=== PATIENT | female | born 1935 | race African-American/Black ===

== ENCOUNTER 2017-07-29 09:07 | Inpatient (IN) | payer MEDICARE ==
[2017-07-29] VITALS (17 sets, daily range): BP systolic 139–190; BP diastolic 82–113; PULSE 92–165; RESP 16–20; TEMP 97.8–99.2; O2SAT 95–98
[~2017-07-29] VITALS: Ht 160 cm; Wt 76.2 kg
[~2017-07-29 09:07] MED LIST: BUME1TAB PO; CLON.1 PO; CLON.1T TOP; ENAL20TA81 PO; FENO50TA PO; LABE100T2 PO; LEVO.05 PO; OMEP20CA5 PO; SIMV20 PO; TAB-TAB PO
[2017-07-29] MEDS ORDERED: ENAL20TA PO (09:28)
[2017-07-29] MEDS ORDERED: LABE100T2 PO (09:28)
[2017-07-29] MEDS ORDERED: LEVO75TA3 PO (09:28)
[2017-07-29] MEDS ORDERED: FISHCAP4 PO (09:28)
[2017-07-29] MEDS ORDERED: PRAV40TA2 PO (09:28)
[2017-07-29] MEDS ORDERED: GEMF600T PO (09:28)
[2017-07-29] MEDS ORDERED: BUME1TAB PO (09:28)
[2017-07-29] MEDS ORDERED: DILTIAZEM INJ 125 MG in SODIUM CHLORIDE 0.9% INJ 100 ML IV PRN (09:45)
[2017-07-29] MEDS ORDERED: DILTIAZEM HCL 25 MG/5 ML VIAL IV PUSH ONE (09:45)
[2017-07-29] MEDS ORDERED: SODIUM CHLOR 0.9% 1000 ML INJ 1,000 ML IV SCH (09:45)
--- NOTE | 2017-07-29 09:50 | PD ---
HPI Chief Complaint: Cardiac Complaint Time Seen by Provider: 09:33 Travel History International Travel<30 days: No Contact w/Intl Traveler<30days: No Traveled to known affect area: No History of Present Illness HPI 85-year-old female complains of lower extremity weakness. Patient states that symptoms started this morning. Patient has history of chronic bilateral hip pain for the past 2 years and is not new. Patient states that she started having low extremity weakness upon waking up this morning. Patient states that she could not move her legs at all. Patient denies any sensation. Patient denies any bladder or bowel incontinence. Patient has history of hypertension, hyperlipidemia, hypothyroidism. Patient denies any cardiac disease. Patient denies any history of atrial fibrillation or irregular heartbeat. Patient denies any headache. Patient denies any visual change. Patient denies any neck pain. Patient denies any chest pain or shortness of breath. Patient denies abdominal pain. Patient denies any previous history of weakness or numbness of extremity. PFSH Past Medical History Cardiovascular Problems: Yes High Cholesterol: Yes Congestive Heart Failure: Yes Hypertension: Yes Thyroid Disease: Yes (HYPOTHYROID) ?: Not Menopausal: Yes Past Surgical History Surgical History: No Previous Surgery Social History Alcohol Use: No Tobacco Use: No Substance Use: No Allergies-Medications (Allergen,Severity, Reaction): Coded Allergies: No Known Allergies (Verified Allergy, Unknown, 07/29/17) Reported Meds & Prescriptions Reported Meds & Active Scripts Active Reported Enalapril (Enalapril Maleate) 20 Mg Tab 20 Mg PO DAILY Bumetanide 1 Mg Tab 1 Mg PO DAILY Pravastatin 40 Mg Tab 40 Mg PO DAILY Fish Oil + D3 (Fish Oil-Cholecalciferol) 1,200-1,000 Mg-Unit Cap 1 Cap PO DAILY Gemfibrozil 600 Mg Tab 600 Mg PO BIDAC Take 30 minutes prior to breakfast and dinner. Levothyroxine (Levothyroxine Sodium) 75 Mcg Tab 75 Mcg PO DAILY Labetalol (Labetalol HCl) 100 Mg Tab 100 Mg PO BID Review of Systems General / Constitutional: No: Fever Eyes: No: Visual changes HENT: No: Headaches Cardiovascular: No: Chest Pain or Discomfort Respiratory: No: Shortness of Breath Gastrointestinal: No: Abdominal Pain Genitourinary: No: Dysuria Musculoskeletal: No: Pain Skin: No Rash Neurologic: Positive: Weakness Psychiatric: No: Depression Endocrine: No: Polydipsia Hematologic/Lymphatic: No: Easy Bruising Physical Exam Narrative GENERAL: Well-nourished, well-developed patient. SKIN: Focused skin assessment warm/dry. HEAD: Normocephalic. EYES: No scleral icterus. No injection or drainage. NECK: Supple, trachea midline. No JVD or lymphadenopathy. CARDIOVASCULAR: Regular rate and rhythm without murmurs, gallops, or rubs. RESPIRATORY: Breath sounds equal bilaterally. No accessory muscle use. GASTROINTESTINAL: Abdomen soft, non-tender, nondistended. MUSCULOSKELETAL: No cyanosis, or edema. BACK: Nontender without obvious deformity. No CVA tenderness. Neurologic exam: Patient's awake and alert oriented 3. Patient unable to move bilateral lower extremity. Patient can move the toes. Sensory function intact. Good capillary refill. Lower extremity bilaterally is warm. Data Data Last Documented VS Vital Signs Date Time Temp Pulse Resp B/P (MAP) Pulse Ox O2 Delivery O2 Flow Rate FiO2 07/29/17 14:22 110 17 180/89 (119) 96 Room Air 07/29/17 12:28 97.8 Orders Orders Electrocardiogram (07/29/17 ) Complete Blood Count With Diff (07/29/17 09:39) Comprehensive Metabolic Panel (07/29/17 09:39) Creatine Kinase (Cpk) (07/29/17 09:39) Troponin I (07/29/17 09:39) Prothrombin Time / Inr (Pt) (07/29/17 09:39) Act Partial Throm Time (Ptt) (07/29/17 09:39) Urinalysis - C+S If Indicated (07/29/17 09:39) Thyroid Stimulating Hormone (07/29/17 09:39) Chest, Single Ap (07/29/17 09:39) Iv Access Insert/Monitor (07/29/17 09:39) Ecg Monitoring (07/29/17 09:39) Oximetry (07/29/17 09:39) Diltiazem Inj (Cardizem Inj) (07/29/17 09:45) Diltiazem Inj (Cardizem Inj) (07/29/17 09:45) Sodium Chlor 0.9% 1000 Ml Inj (Ns 1000 M (07/29/17 09:45) Mri Brain W/O Contrast (07/29/17 09:42) Mri C Spine W/O Contrast (07/29/17 09:42) Mri T Spine W/O Contrast (07/29/17 09:42) Mri L Spine W/O Contrast (07/29/17 09:42) Labs Laboratory Tests Test 07/29/17 09:48 White Blood Count 11.4 TH/MM3 Red Blood Count 3.62 MIL/MM3 Hemoglobin 11.2 GM/DL Hematocrit 33.4 % Mean Corpuscular Volume 92.1 FL Mean Corpuscular Hemoglobin 31.0 PG Mean Corpuscular Hemoglobin Concent 33.7 % Red Cell Distribution Width 14.8 % Platelet Count 208 TH/MM3 Mean Platelet Volume 9.6 FL Neutrophils (%) (Auto) 80.6 % Lymphocytes (%) (Auto) 5.8 % Monocytes (%) (Auto) 13.2 % Eosinophils (%) (Auto) 0.1 % Basophils (%) (Auto) 0.3 % Neutrophils # (Auto) 9.1 TH/MM3 Lymphocytes # (Auto) 0.7 TH/MM3 Monocytes # (Auto) 1.5 TH/MM3 Eosinophils # (Auto) 0.0 TH/MM3 Basophils # (Auto) 0.0 TH/MM3 CBC Comment DIFF FINAL Differential Comment Prothrombin Time 10.5 SEC Prothromb Time International Ratio 1.0 RATIO Activated Partial Thromboplast Time 35.1 SEC Blood Urea Nitrogen 23 MG/DL Creatinine 0.97 MG/DL Random Glucose 112 MG/DL Total Protein 7.7 GM/DL Albumin 2.8 GM/DL Calcium Level 10.4 MG/DL Alkaline Phosphatase 81 U/L Aspartate Amino Transf (AST/SGOT) 17 U/L Alanine Aminotransferase (ALT/SGPT) 10 U/L Total Bilirubin 0.5 MG/DL Sodium Level 136 MEQ/L Potassium Level 3.6 MEQ/L Chloride Level 98 MEQ/L Carbon Dioxide Level 28.4 MEQ/L Anion Gap 10 MEQ/L Estimat Glomerular Filtration Rate 66 ML/MIN Total Creatine Kinase 101 U/L Troponin I 0.02 NG/ML Thyroid Stimulating Hormone 3rd Gen 2.070 uIU/ML MDM Medical Decision Making Medical Screen Exam Complete: Yes Emergency Medical Condition: Yes Interpretation(s) Last Impressions Thoracic Spine MRI 07/29/17941 Signed Impressions: Service Date/Time: July 10:29 - CONCLUSION: 1. No acute abnormality. 2. Mild diffuse degenerative disc disease without central canal compromise. Tyson Reina Jr., MD Lumbar Spine MRI 07/29/17941 Signed Impressions: Service Date/Time: July 10:29 - CONCLUSION: Multilevel degenerative changes as detailed above. Most pronounced at L2-L3 with significant central canal stenosis. There is a transitional segment at L5. There is a 7.2 x 5.3 cm soft tissue structure within the pelvis partially seen on the final images of the exam. I'm unsure if this relates to the fundus of the uterus or perhaps a soft tissue mass. Consider pelvic sonography to evaluate. Tyson Reina Jr., MD Cervical Spine MRI 07/29/17941 Signed Impressions: Service Date/Time: July 10:29 - CONCLUSION: Multilevel degenerative changes with areas of impression upon the cord no signal change within the cord to suggest edema or myelomalacia. Each level detailed in the above discussion. Tyson Reina Jr., MD Brain MRI 07/29/17941 Signed Impressions: Service Date/Time: July 10:29 - CONCLUSION: 1. No acute intracranial abnormality. 2. Extensive chronic small vessel ischemic change. Tyson Reina Jr., MD Chest X-Ray 07/29/17938 Signed Impressions: Service Date/Time: July 10:05 - CONCLUSION: No acute disease. Varghese Mejia MD 1526 PM. CBC WBC 11.4. Hemoglobin 11.2 hematocrit 33.4. 80 neutrophil. BUN 23. Creatinine 0.97. GFR 66. Calcium 10.4. Cardiac enzymes are normal. Differential Diagnosis Differential diagnosis including new onset atrial fibrillation RVR, neuropathy, spinal cord lesion, CVA. Narrative Course 85-year-old female with bilateral extremity weakness. Patient also has new- onset atrial fibrillation with RVR. Cardizem bolus and drip started. IV fluid with normal saline solution 100 cc an hour. Diagnosis Primary Impression: Atrial fibrillation with RVR Additional Impression: Lower extremity weakness Qualified Codes: R29.898 - Other symptoms and signs involving the musculoskeletal system Admitting Information Admitting Physician Requests: Admit Mane Lawrence MD Jul 29, 2017 09:50
[2017-07-29 10:02] LABS: AUTOMATED NEUTROPHIL # 9.1 TH/MM3 (1.8-7.7); BASOPHIL % 0.3 % (0.0-2.0); EOSINOPHIL % 0.1 % (0.0-4.0); HEMATOCRIT 33.4 % (35.0-46.0); HEMOGLOBIN 11.2 GM/DL (11.6-15.3); LYMPH % 5.8 % (9.0-44.0); LYMPHOCYTE # 0.7 TH/MM3 (1.0-4.8); MEAN CELL VOLUME 92.1 FL (80.0-100.0); MEAN CORPUSCULAR HGB CONC 33.7 % (32.0-36.0); MEAN PLATELET VOLUME 9.6 FL (7.0-11.0); MONO % 13.2 % (0.0-8.0); MONOCYTE # 1.5 TH/MM3 (0-0.9); NEUT % 80.6 % (16.0-70.0); PLATELET COUNT 208 TH/MM3 (150-450); RED BLOOD COUNT 3.62 MIL/MM3 (4.00-5.30); RED CELL DISTRIBUTION WIDTH 14.8 % (11.6-17.2); WHITE BLOOD COUNT 11.4 TH/MM3 (4.0-11.0)
[2017-07-29 10:11] LABS: PROTHROMBIN TIME - PATIENT 10.5 SEC (9.8-11.6)
[2017-07-29 10:18] LABS: ALBUMIN 2.8 GM/DL (3.4-5.0); AST (GOT) 17 U/L (15-37); BICARBONATE 28.4 MEQ/L (21.0-32.0); BLOOD UREA NITROGEN 23 MG/DL (7-18); CALCIUM 10.4 MG/DL (8.5-10.1); CHLORIDE 98 MEQ/L (98-107); CREATININE 0.97 MG/DL (0.50-1.00); GLOMERULAR FILTRATION RATE 66 ML/MIN (>89); GLUCOSE,RANDOM 112 MG/DL (74-106); SODIUM (NA) 136 MEQ/L (136-145)
[2017-07-29 10:19] LABS: ALT (GPT) 10 U/L (10-53)
--- NOTE | 2017-07-29 10:20 | RADRPT ---
EXAM DATE/TIME: 07/29/2017 10:05 [facility] COMPARISON: CHEST SINGLE AP, February 27, 2012, 20:33. INDICATIONS : High blood pressure, bilateral leg and feet weakness. MEDICAL HISTORY : Hypertension. SURGICAL HISTORY : None. ENCOUNTER: Initial ACUITY: 1 day PAIN SCORE: 4/10 LOCATION: Bilateral chest FINDINGS: A single view of the chest demonstrates the lungs to be symmetrically aerated without evidence of mas s, infiltrate or effusion. The cardiomediastinal contours are unremarkable. Osseous structures are intact. CONCLUSION: No acute disease. Varghese Mejia MD on July 29, 2017 at 10:17 Board Certified Radiologist. This report was verified electronically.
[2017-07-29 10:28] LABS: ALKALINE PHOSPHATASE 81 U/L (45-117); TOTAL BILIRUBIN ADULT 0.5 MG/DL (0.2-1.0); TOTAL PROTEIN 7.7 GM/DL (6.4-8.2); TROPONIN I 0.02 NG/ML (0.02-0.05)
--- NOTE | 2017-07-29 11:23 | RADRPT ---
EXAM DATE/TIME: 07/29/2017 10:29 [facility] COMPARISON: No previous studies available for comparison. INDICATIONS : Bilateral leg weakness. MEDICAL HISTORY : Hypertension. SURGICAL HISTORY : None. ENCOUNTER: Initial ACUITY: 1 day PAIN SCORE: 0/10 LOCATION: mid back. TECHNIQUE: Multiplanar multisequence MRI of the thoracic spine was performed. FINDINGS: VERTEBRA: Normal vertebral body height. Homogeneous marrow signal. ALIGNMENT: There is a curvature with concavity towards the patient's left centered at the lower thoracic levels. This may simply be positional in nature. CORD: Normal position and configuration. There is diffuse disc space narrowing throughout the thoracic spine with mild anterior osteophyte pro duction. T1-T2: Normal. T2-T3: The thecal sac has a normal diameter. No evidence of disc bulge or protrusion. T3-T4: The thecal sac has a normal diameter. No evidence of disc bulge or protrusion. T4-T5: The thecal sac has a normal diameter. No evidence of disc bulge or protrusion. T5-T6: The thecal sac has a normal diameter. No evidence of disc bulge or protrusion. T6-T7: The thecal sac has a normal diameter. No evidence of disc bulge or protrusion. T7-T8: The thecal sac has a normal diameter. No evidence of disc bulge or protrusion. T8-T9: The thecal sac has a normal diameter. No evidence of disc bulge or protrusion. T9-T10: The thecal sac has a normal diameter. No evidence of disc bulge or protrusion. T10-T11: The thecal sac has a normal diameter. No evidence of disc bulge or protrusion. T11-T12: The thecal sac has a normal diameter. No evidence of disc bulge or protrusion. T12-L1: The thecal sac has a normal diameter. No evidence of disc bulge or protrusion. CONCLUSION: 1. No acute abnormality. 2. Mild diffuse degenerative disc disease without central canal compromise. Tyson Reina Jr., MD on July 29, 2017 at 11:17 Board Certified Radiologist. This report was verified electronically.
--- NOTE | 2017-07-29 11:29 | RADRPT ---
EXAM DATE/TIME: 07/29/2017 10:29 [facility] COMPARISON: No previous studies available for comparison. INDICATIONS : Bilateral leg weakness. MEDICAL HISTORY : Hypertension. SURGICAL HISTORY : None. ENCOUNTER: Initial ACUITY: 1 day PAIN SCORE: 0/10 LOCATION: neck. TECHNIQUE: Multiplanar, multisequence MRI examination of the cervical spine was performed. FINDINGS: VERTEBRAE: Normal vertebral body height. Homogeneous marrow signal. ALIGNMENT: Is a mild grade 1 anterolisthesis of C4 on C5. There is a mild retrolisthesis of C5 on C6. CORD: Normal configuration and signal. POST FOSSA: The cerebellar tonsils are normal in position. C2-C3: There is disc desiccation with mild disc space narrowing. A mild broad-based bulge. No abutment of th e cord or central canal stenosis. Central canal and neural foramina are patent bilaterally. C3-C4: There is significant disc space narrowing and broad-based disc bulge flattens the ventral portion of the cord. The anterior to posterior dimension of the central canal in the midline is 8 mm. Bony uncov ertebral hypertrophy generate significant bilateral neural foraminal narrowing. C4-C5: There is moderate disc space narrowing with disc desiccation and moderate broad-based disc bulge that mildly flattens the ventral portion of the cord. Central canal measures 10 mm in the midline. Bony u ncovertebral hypertrophy generate significant stenosis of the right neural foramen with minimal narro wing of the left neural foramen. C5-C6: There is considerable disc space narrowing with disc desiccation and minimal broad based disc bulge t hat mildly flattens the ventral portion of the cord. Central canal measures 9 mm in the midline. Bony uncovertebral hypertrophy generate significant bilateral neural foraminal narrowing. C6-C7: There is significant disc space narrowing with disc desiccation and broad-based disc bulge that ceci ens the ventral portion of the cord. Anterior to posterior dimension of the central canal in the midl ine is 9 mm. Bony uncovertebral hypertrophy generate moderate bilateral neural foraminal narrowing. C7-T1: The thecal sac has a normal configuration. There is no evidence of disc herniation or spinal canal s tenosis. The neural foramina are patent bilaterally. CONCLUSION: Multilevel degenerative changes with areas of impression upon the cord no signal change within the co rd to suggest edema or myelomalacia. Each level detailed in the above discussion. Tyson Reina Jr., MD on July 29, 2017 at 11:21 Board Certified Radiologist. This report was verified electronically.
--- NOTE | 2017-07-29 11:42 | RADRPT ---
EXAM DATE/TIME: 07/29/2017 10:29 [facility] COMPARISON: No previous studies available for comparison. INDICATIONS : Bilateral leg weakness. MEDICAL HISTORY : Hypertension. SURGICAL HISTORY : None. ENCOUNTER: Initial ACUITY: 1 day PAIN SCORE: 0/10 LOCATION: low back. TECHNIQUE: Multiplanar multisequence MRI of the lumbar spine was performed without contrast. FINDINGS: The most caudal appearing lumbar vertebra is numbered as L5. VERTEBRAE: Homogeneous signal. Normal alignment. CONUS: Normal level and configuration. There is a soft tissue structure that is partially visualized within the pelvis on the final images o f this study. This measures 7.2 x 5.3 cm within its visualized extent. I am unsure if this relates to the dome of the fundus of uterus. T12-L1: The thecal sac has a normal diameter. No evidence of disc bulge or protrusion. The neural foramina are patent bilaterally. L1-L2: The thecal sac has a normal diameter. No evidence of disc bulge or protrusion. The neural foramina are patent bilaterally. Mild bony hypertrophy of the facets. L2-L3: There is disc desiccation with mild disc space narrowing and moderate broad-based disc bulge. This in combination with pronounced ligamentum flavum hypertrophy and moderate bony hypertrophy of the facet s causes significant central canal stenosis. The anterior to posterior dimension of the central canal in the midline is 4 mm. Total effacement of the lateral recesses bilaterally. Narrowing of the neura l foramina without overt impingement of either L2 nerve root. L3-L4: There is significant disc space narrowing with disc desiccation and mild broad-based disc bulge. Mode rate ligamentum flavum hypertrophy of the facet joints. Narrowing of the lateral recesses bilaterally without displacement of either L4 nerve roots. Central canal is patent but the intrathecal space jesus suring 11 mm in the midline. Neural foramina are patent bilaterally. L4-L5: There is disc desiccation with preservation of the disc space height. A moderate broad-based bulge. M oderate ligamentum flavum hypertrophy of the facets. This combination generates significant narrowing of the lateral recesses bilaterally as well as a triangle are shaped and the central canal. Central canal measures 8 mm in anterior to posterior dimension within the midline. There is narrowing of the neural foramina bilaterally without overt impingement. L5-S1: The L5 level is a transitional segment and is approximating that of an S1 segment. No disc bulge or p rotrusion. Central canal and neural foramen are patent. CONCLUSION: Multilevel degenerative changes as detailed above. Most pronounced at L2-L3 with significant central canal stenosis. There is a transitional segment at L5. There is a 7.2 x 5.3 cm soft tissue structure within the pelvis partially seen on the final images of the exam. I'm unsure if this relates to the f undus of the uterus or perhaps a soft tissue mass. Consider pelvic sonography to evaluate. Tyson Reina Jr., MD on July 29, 2017 at 11:26 Board Certified Radiologist. This report was verified electronically.
--- NOTE | 2017-07-29 11:58 | RADRPT ---
EXAM DATE/TIME: 07/29/2017 10:29 [facility] COMPARISON: No previous studies available for comparison. INDICATIONS : Bilateral leg weakness. MEDICAL HISTORY : Hypertension. SURGICAL HISTORY : None. ENCOUNTER: Initial ACUITY: 1 day PAIN SCORE: 0/10 LOCATION: head. TECHNIQUE: Multiplanar, multisequence MRI of the brain was performed without contrast. FINDINGS: CEREBRUM: The ventricles are normal for age. No evidence of midline shift, mass lesion, hemorrhage or acute in farction. No extraaxial fluid collections are seen. The pituitary gland and suprasellar cistern are normal in configuration. WHITE MATTER: Extensive high flair signal involving the periventricular and subcortical white matter of both cerebr al hemispheres. No subcortical U fiber involvement or callosal involvement appreciated. POSTERIOR FOSSA: The cerebellum and brainstem are intact. The 4th ventricle is midline. The cerebellopontine angle is unremarkable. The cerebellar tonsils are normal in position. DIFFUSION IMAGING: No focal areas of restricted diffusion are seen. No evidence of acute infarction. EXTRACRANIAL: The visualized portions of the orbits and paranasal sinuses are unremarkable. CONCLUSION: 1. No acute intracranial abnormality. 2. Extensive chronic small vessel ischemic change. Tyson Reina Jr., MD on July 29, 2017 at 11:53 Board Certified Radiologist. This report was verified electronically.
--- NOTE | 2017-07-29 13:51 | EKG ---
Date Performed: 07/29/2017 Time Performed: 09:22:01 PTAGE: 85 years EKG: PROBABLE atrial flutter WITH RAPID VENTRICULAR RESPONSE NONSPECIFIC ST & T-WAVE ABNORMALIT Y ABNORMAL ECG Compared to prior electrocardiogram, atrial flutter is new DOCTOR: Adam Mojica Interpretating Date/Time 07/29/2017 13:50:09
[2017-07-29] MEDS ORDERED: SODIUM CHLOR 0.9% 1000 ML INJ 1,000 ML IV ONE (17:15)
--- NOTE | 2017-07-29 17:20 | HHI.HP ---
[facility] Primary Care Physician David Clark MD Admission Diagnosis new-onset atrial fibrillation with RVR. Lower extremity weakness. Diagnoses: (1) Lower extremity weakness Diagnosis: Principal (2) Atrial fibrillation with RVR Diagnosis: Principal Chief Complaint: ' I wasn't able to move my legs today'. Travel History International Travel<30 Days: No Contact w/Intl Traveler <30 Da: No Traveled to Known Affected Are: No History of Present Illness patient is a 85 y/o female with history of hypertension, dyslipidemia, hypothyroidism who presented to ER with lower extremity weakness. she says that she normally walks with a walker. but this morning she wasn't able to move her legs. she denies any headache, slurred speech or vision changes. she denies any urine or stool incontinence. she denies any chest pain, sob or dizziness. she was found to be in a-fib with RVR. she doesn't report any history of atrial fibrillation. Review of Systems Constitutional: DENIES: Fever, Weight loss, Chills, Night Sweats Eyes: DENIES: Blurred vision, Diplopia, Vision loss, Double Vision Ears, nose, mouth, throat: DENIES: Tinnitus, Vertigo, Throat pain, Epistaxis Respiratory: DENIES: Apneas, Cough, Snoring, Wheezing, Hemoptysis, Sputum production, Shortness of breath Cardiovascular: DENIES: Chest pain, Palpitations, Syncope, Dyspnea on Exertion , PND, Lower Extremity Edema, Orthopnea, Claudication Gastrointestinal: DENIES: Abdominal pain, Black stools, Bloody stools, Constipation, Diarrhea, Nausea, Vomiting, Difficulty Swallowing, Anorexia Genitourinary: DENIES: Urinary frequency, Urgency, Hematuria, Dysuria Musculoskeletal: DENIES: Joint pain, Muscle aches, Stiffness, Joint Swelling Integumentary: DENIES: Rash Neurologic: COMPLAINS OF: Abnormal gait, DENIES: Headache, Localized weakness, Paresthesias, Seizures, Speech Problems, Tremor, Poor Balance Psychiatric: DENIES: Anxiety, Confusion, Mood changes, Depression, Hallucinations, Agitation, Suicidal Ideation, Homicidal Ideation, Delusions Past Family Social History Past Medical History hypertension/dyslipidemia/hypothyroidism Past Surgical History none reported. Reported Medications Enalapril (Enalapril Maleate) 20 Mg Tab 20 Mg PO DAILY Bumetanide 1 Mg Tab 1 Mg PO DAILY Pravastatin 40 Mg Tab 40 Mg PO DAILY Fish Oil + D3 (Fish Oil-Cholecalciferol) 1,200-1,000 Mg-Unit Cap 1 Cap PO DAILY Gemfibrozil 600 Mg Tab 600 Mg PO BIDAC Take 30 minutes prior to breakfast and dinner. Levothyroxine (Levothyroxine Sodium) 75 Mcg Tab 75 Mcg PO DAILY Labetalol (Labetalol HCl) 100 Mg Tab 100 Mg PO BID Allergies: Coded Allergies: No Known Allergies (Verified Allergy, Unknown, 07/29/17) Active Ordered Medications Inpatient Medications Diltiazem HCl (Cardizem Inj) 20 mg BOLUS ONCE IV PUSH Last administered on 07/29at 09:51; Start 07/29/17 at 09:45; Stop 07/29/17 at 09:46; Status DC Diltiazem HCl 125 mg/Sodium Chloride 125 ml @ 5 mls/hr TITRATE PRN IV tachycardia Last administered on 07/29/17at 11:49; Start 07/29/17 at 09:45 Sodium Chloride 1,000 ml @ 100 mls/hr Q10H IV Last administered on 07/29/17at 09 :51; Start 07/29/17 at 09:45 Family History not significant. Social History no smoking or drinking. Physical Exam Vital Signs Vital Signs Date Time Temp Pulse Resp B/P (MAP) Pulse Ox O2 Delivery O2 Flow Rate FiO2 07/29/17 15:55 103 16 176/92 (120) 97 Room Air 07/29/17 14:22 110 17 180/89 (119) 96 Room Air 07/29/17 12:28 97.8 130 20 152/82 (105) 96 Room Air 07/29/17 12:27 130 158/92 07/29/17 12:00 97.8 148 18 171/89 (116) 97 Room Air 07/29/17 11:49 158 173/96 07/29/17 10:22 103 16 178/86 (116) 96 Room Air 07/29/17 09:57 98 Room Air 07/29/17 09:52 155 16 184/113 (136) 96 Room Air 07/29/17 09:17 98.7 165 17 168/107 (127) 97 Physical Exam GENERAL: This is a well-nourished, well-developed patient, in no apparent distress. SKIN: No rashes, ecchymoses or lesions. Cool and dry. HEAD: Atraumatic. Normocephalic. No temporal or scalp tenderness. EYES: Pupils equal round and reactive. Extraocular motions intact. No scleral icterus. No injection or drainage. ENT: Nose without bleeding, purulent drainage or septal hematoma. Throat without erythema, tonsillar hypertrophy or exudate. Uvula midline. Airway patent. NECK: Trachea midline. No JVD or lymphadenopathy. Supple, nontender, no meningeal signs. CARDIOVASCULAR:tachycardic with irregular rhythm RESPIRATORY: Clear to auscultation. Breath sounds equal bilaterally. No wheezes , rales, or rhonchi. GASTROINTESTINAL: Abdomen soft, non-tender, nondistended. No hepato-splenomegaly , or palpable masses. No guarding. MUSCULOSKELETAL: Extremities without clubbing, cyanosis, or edema. No joint tenderness, effusion, or edema noted. No calf tenderness. Negative Homans sign bilaterally. NEUROLOGICAL: Awake and alert. Cranial nerves II through XII intact. lower extremity weakness noted bilaterally. Laboratory Laboratory Tests Test 07/29/17 09:48 White Blood Count 11.4 Red Blood Count 3.62 Hemoglobin 11.2 Hematocrit 33.4 Mean Corpuscular Volume 92.1 Mean Corpuscular Hemoglobin 31.0 Mean Corpuscular Hemoglobin Concent 33.7 Red Cell Distribution Width 14.8 Platelet Count 208 Mean Platelet Volume 9.6 Neutrophils (%) (Auto) 80.6 Lymphocytes (%) (Auto) 5.8 Monocytes (%) (Auto) 13.2 Eosinophils (%) (Auto) 0.1 Basophils (%) (Auto) 0.3 Neutrophils # (Auto) 9.1 Lymphocytes # (Auto) 0.7 Monocytes # (Auto) 1.5 Eosinophils # (Auto) 0.0 Basophils # (Auto) 0.0 CBC Comment DIFF FINAL Differential Comment Prothrombin Time 10.5 Prothromb Time International Ratio 1.0 Activated Partial Thromboplast Time 35.1 Blood Urea Nitrogen 23 Creatinine 0.97 Random Glucose 112 Total Protein 7.7 Albumin 2.8 Calcium Level 10.4 Alkaline Phosphatase 81 Aspartate Amino Transf (AST/SGOT) 17 Alanine Aminotransferase (ALT/SGPT) 10 Total Bilirubin 0.5 Sodium Level 136 Potassium Level 3.6 Chloride Level 98 Carbon Dioxide Level 28.4 Anion Gap 10 Estimat Glomerular Filtration Rate 66 Total Creatine Kinase 101 Troponin I 0.02 Thyroid Stimulating Hormone 3rd Gen 2.070 Result Diagram: 07/29/1794707/29/17947 Imaging Last Impressions Thoracic Spine MRI 07/29/17941 Signed Impressions: Service Date/Time: July 10:29 - CONCLUSION: 1. No acute abnormality. 2. Mild diffuse degenerative disc disease without central canal compromise. Tyson Reina Jr., MD Lumbar Spine MRI 07/29/17941 Signed Impressions: Service Date/Time: July 10:29 - CONCLUSION: Multilevel degenerative changes as detailed above. Most pronounced at L2-L3 with significant central canal stenosis. There is a transitional segment at L5. There is a 7.2 x 5.3 cm soft tissue structure within the pelvis partially seen on the final images of the exam. I'm unsure if this relates to the fundus of the uterus or perhaps a soft tissue mass. Consider pelvic sonography to evaluate. Tyson Reina Jr., MD Cervical Spine MRI 07/29/17941 Signed Impressions: Service Date/Time: July 10:29 - CONCLUSION: Multilevel degenerative changes with areas of impression upon the cord no signal change within the cord to suggest edema or myelomalacia. Each level detailed in the above discussion. Tyson Reina Jr., MD Brain MRI 07/29/17941 Signed Impressions: Service Date/Time: July 10:29 - CONCLUSION: 1. No acute intracranial abnormality. 2. Extensive chronic small vessel ischemic change. Tyson Reina Jr., MD Chest X-Ray 07/29/17938 Signed Impressions: Service Date/Time: July 10:05 - CONCLUSION: No acute disease. Varghese Mejia MD EKG; atrial fibrillation with RVR Caprini VTE Risk Assessment Caprini VTE Risk Assessment: Mod/High Risk (score >= 2) Caprini Risk Assessment Model Point Value = 1 Point Value = 2 Point Value = 3 Point Value = 5 Age 41-60 Minor surgery BMI > 25 kg/m2 Swollen legs Varicose veins or History of unexplained or recurrent spontaneous Oral contraceptives or hormone replacement Sepsis (< 1 month) Serious lung disease, including pneumonia (< 1 month) Abnormal pulmonary function Acute myocardial infarction Congestive heart failure (< 1 month) History of inflammatory bowel disease Medical patient at bed rest Age 61-74 Arthroscopic surgery Major open surgery (> 45 min) Laparoscopic surgery (> 45 min) Malignancy Confined to bed (> 72 hours) Immobilizing plaster cast Central venous access Age >= 75 History of VTE Family history of VTE Factor V Leiden Prothrombin [id number] Lupus anticoagulant Anticardiolipin antibodies Elevated serum homocysteine Heparin-induced thrombocytopenia Other congenital or acquired thrombophilia Stroke (< 1 month) Elective arthroplasty Hip, pelvis, or leg fracture Acute spinal cord injury (< 1 month) Prophylaxis Regimen Total Risk Factor Score Risk Level Prophylaxis Regimen 0-1 Low Early ambulation 2 Moderate Order ONE of the following: *Sequential Compression Device (SCD) *Heparin 5000 units SQ BID 3-4 Higher Order ONE of the following medications: *Heparin 5000 units SQ TID *Enoxaparin/Lovenox 40 mg SQ daily (WT < 150 kg, CrCl > 30 mL/min) *Enoxaparin/Lovenox 30 mg SQ daily (WT < 150 kg, CrCl > 10-29 mL/min) *Enoxaparin/Lovenox 30 mg SQ BID (WT < 150 kg, CrCl > 30 mL/min) AND/OR *Sequential Compression Device (SCD) 5 or more Highest Order ONE of the following medications: *Heparin 5000 units SQ TID (Preferred with Epidurals) *Enoxaparin/Lovenox 40 mg SQ daily (WT < 150 kg, CrCl > 30 mL/min) *Enoxaparin/Lovenox 30 mg SQ daily (WT < 150 kg, CrCl > 10-29 mL/min) *Enoxaparin/Lovenox 30 mg SQ BID (WT < 150 kg, CrCl > 30 mL/min) AND *Sequential Compression Device (SCD) Assessment and Plan Assessment and Plan A/P - lower extremity weakness. MRI of the lumbar spine with degenerative changes. consult neurology and PT. -atrial fibrillation with RVR- new onset started on Cardizme drip; will start on po cardizem and try to wean off the drip- will check echo and consult cardiology. -hypertension; started on cardizem- will hold oral BP meds for now -dyslipidemia/hypothyroidism; resume home meds -pelvic soft tissue mass; pelvic sonography; outpatient f/u. -DVT prophylaxis with subq lovenox Discussed Condition With ER physician, the patient and her daughter at the bedside. Physician Certification 2 Midnight Certification Type: Admission for Inpatient Services Order for Inpatient Services The services are ordered in accordance with Medicare regulations or non- Medicare payer requirements, as applicable. In the case of services not specified as inpatient-only, they are appropriately provided as inpatient services in accordance with the 2-midnight benchmark. Estimated LOS (days): 2 days is the estimated time the patient will need to remain in the hospital, assuming treatment plan goals are met and no additional complications. Post-Hospital Plan: Not yet determined Problem Qualifiers (1) Lower extremity weakness: Qualified Codes: R29.898 - Other symptoms and signs involving the musculoskeletal system Aracelis Lou MD Jul 29, 2017 17:20
[2017-07-29] MEDS ORDERED: AMIODARONE INJ 150 MG in DEXTROSE 5% IN WATER 100ML INJ 97 ML IV ONE ×2 (18:10)
[2017-07-29] MEDS ORDERED: SODIUM CHLORIDE 0.9% FLUSH 10 ML FLUSH IVF PRN (18:15)
[2017-07-29] MEDS: DILTIAZEM HCL 30 MG TAB PO SCH (18:18)
[2017-07-29] MEDS: AMIODARONE INJ 450 MG in SODIUM CHLOR 0.9% (EXCEL) INJ 250 ML IV SCH (20:23)
[2017-07-29] MEDS: APIXABAN 2.5 MG TABLET PO SCH (21:00)
--- NOTE | 2017-07-29 21:55 | MB ---
cc: TATIANA ELLIS MD DATE OF CONSULTATION 07/29/17 INDICATION Atrial fibrillation. HISTORY OF PRESENT ILLNESS An 85-year-old female history of hypertension, dyslipidemia, hypothyroidism who came into the emergency department with generalized weakness, particularly in her lower extremities. She was found in atrial fibrillation with a rapid ventricular rate. We were consulted for further recommendations. PAST MEDICAL HISTORY 1. Hypertension, 2. Dyslipidemia, 3. Hypothyroidism MEDICATIONS Reported medications 1. Enalapril 2. Bumex 3. Pravastatin 4. Fish oil 5. Gemfibrozil 6. Levothyroxine 7. Labetalol ALLERGIES NO KNOWN DRUG ALLERGIES. REVIEW OF SYSTEMS 12-point review or system was performed, negative unless otherwise noted is history of present illness. PHYSICAL EXAMINATION VITAL SIGNS: Temperature 97, heart rate 108, blood pressure 144/95 mmHg. GENERAL: Alert and oriented x3 in no acute distress. HEENT: Pupils reactive to light and accommodation. Extraocular movements are intact. No elevation in jugular venous distension. No thyromegaly or lymphadenopathy. No carotid bruits. LUNGS: Clear to auscultation bilaterally. CARDIOVASCULAR: She has an irregular irregular rhythm without murmurs, rubs or gallops. ABDOMEN: Nontender, nondistended. Good bowel sounds. No hepatosplenomegaly. EXTREMITIES: No clubbing, cyanosis or edema. Good peripheral pulses. NEUROLOGIC: Cranial nerves intact. Motor sensory grossly intact. LABORATORY DATA WBC 11.4, hemoglobin 11.2, platelet count 208, INR is 1. Sodium 136, potassium 3.6, BUN is 23, creatinine 0.97. ASSESSMENT 1. Atrial fibrillation with rapid ventricular rate 2. Hypertension, hyperlipidemia. PLAN The patient had a brief period of mormonism to normal sinus rhythm and then she reverted back to atrial fibrillation. She has no prior history of known heart disease. We will obtain a 2-D echocardiogram. She is currently on rate controlled Cardizem, Cardizem drip. Oral Cardizem was initiated. Given her brief mormonism of sinus rhythm, we will see if we can chemically convert her with Amiodarone to maintain sinus rhythm. Base on her CHADS vasc score of 4, she will need anticoagulation. We will start her an oral anticoagulant. Hopefully, she can be discharged and follow up on an outpatient basis. MD ASHIA Sandoval /6:14 PM /9:32 PM
[2017-07-29] MEDS ORDERED: MORPHINE SULFATE 2 MG/ML INJ IV PUSH ONE (23:00)
[2017-07-30] VITALS (18 sets, daily range): BP systolic 131–184; BP diastolic 75–94; PULSE 74–120; RESP 16–28; TEMP 98.2–99; O2SAT 96–99
[2017-07-30] MEDS: DILTIAZEM HCL 30 MG TAB PO SCH ×2 (00:04→05:28)
[2017-07-30] MEDS ORDERED: cloNIDine HCL 0.1 MG TAB PO ONE (02:00)
[2017-07-30] MEDS: AMIODARONE INJ 450 MG in SODIUM CHLOR 0.9% (EXCEL) INJ 250 ML IV SCH (05:25)
[2017-07-30] MEDS: LEVOTHYROXINE SODIUM 75 MCG TAB PO SCH (05:28)
[2017-07-30] MEDS: GEMFIBROZIL 600 MG TAB PO SCH ×2 (05:29→15:39)
[2017-07-30 07:18] LABS: BICARBONATE 25.5 MEQ/L (21.0-32.0); CALCIUM 10.4 MG/DL (8.5-10.1); CREATININE 0.84 MG/DL (0.50-1.00)
--- NOTE | 2017-07-30 08:01 | HHI.PR ---
Subjective Remarks Seen later today. Patient sleepy. Family at bedside. Patient was noted at her baseline in the morning, and in the afternoon per family she has mild dementia and is forgetful. Patient was noted with sudden change altered mental status. Patient is not following commands, she was not responding by nurse calling her and on tactile stimuli. She is telling me get out of my house, and she is calling police. She is lethargic , confused, doesn't know her name, or where she is. Yelling at times ' get out of my house, I am calling the police", clear speech, however nonsensical. When asked she denies chest pain or sob. she is not diaphoretic. VS fairly stable except SBP 193. BS 114. Note patient did not receive any pain meds or benzos. Objective Vitals Vital Signs Date Time Temp Pulse Resp B/P (MAP) Pulse Ox O2 Delivery O2 Flow Rate FiO2 07/30/17 05:25 87 170/75 07/30/17 05:20 77 170/75 07/30/17 05:00 84 07/30/17 04:00 80 07/30/17 03:09 99.0 77 16 170/75 (106) 97 07/30/17 03:00 74 07/30/17 02:00 88 07/30/17 01:00 86 07/30/17 00:00 114 07/30/17 00:00 183/86 (118) 07/29/17 23:00 94 07/29/17 22:34 89 161/86 07/29/17 22:30 190/88 (122) 07/29/17 22:00 96 07/29/17 21:01 99.1 114 16 168/87 (114) 95 07/29/17 21:00 92 07/29/17 20:23 114 168/87 07/29/17 20:22 118 168/87 07/29/17 20:00 112 07/29/17 19:30 99.2 96 16 139/87 (104) 98 07/29/17 19:04 07/29/17 19:00 120 07/29/17 18:09 108 16 144/95 (111) 97 Room Air 07/29/17 15:55 103 16 176/92 (120) 97 Room Air 07/29/17 14:22 110 17 180/89 (119) 96 Room Air 07/29/17 12:28 97.8 130 20 152/82 (105) 96 Room Air 07/29/17 12:27 130 158/92 07/29/17 12:00 97.8 148 18 171/89 (116) 97 Room Air 07/29/17 11:49 158 173/96 07/29/17 10:22 103 16 178/86 (116) 96 Room Air 07/29/17 09:57 98 Room Air 07/29/17 09:52 155 16 184/113 (136) 96 Room Air 07/29/17 09:17 98.7 165 17 168/107 (127) 97 I/O 07/29/17 07/29/17 07/29/17 07/30/17 07/30/17 07/30/17 07:00 15:00 23:00 07:00 15:00 23:00 Intake Total 1000 ml 490 ml Output Total 625 ml Balance 1000 ml -135 ml Intake Oral 240 ml IV Total 1000 ml 250 ml Output Urine Total 625 ml Stool Total 0 ml Result Diagram: 07/29/1748 07/30/17 0504 Imaging Last Impressions Thoracic Spine MRI 07/29/17941 Signed Impressions: Service Date/Time: July 10:29 - CONCLUSION: 1. No acute abnormality. 2. Mild diffuse degenerative disc disease without central canal compromise. Tyson Reina Jr., MD Lumbar Spine MRI 07/29/17941 Signed Impressions: Service Date/Time: July 10:29 - CONCLUSION: Multilevel degenerative changes as detailed above. Most pronounced at L2-L3 with significant central canal stenosis. There is a transitional segment at L5. There is a 7.2 x 5.3 cm soft tissue structure within the pelvis partially seen on the final images of the exam. I'm unsure if this relates to the fundus of the uterus or perhaps a soft tissue mass. Consider pelvic sonography to evaluate. Tyson Reina Jr., MD Cervical Spine MRI 07/29/1742 Signed Impressions: Service Date/Time: July 10:29 - CONCLUSION: Multilevel degenerative changes with areas of impression upon the cord no signal change within the cord to suggest edema or myelomalacia. Each level detailed in the above discussion. Tyson Reina Jr., MD Brain MRI 07/29/1742 Signed Impressions: Service Date/Time: July 10:29 - CONCLUSION: 1. No acute intracranial abnormality. 2. Extensive chronic small vessel ischemic change. Tysno Reina Jr., MD Chest X-Ray 07/29/1739 Signed Impressions: Service Date/Time: July 10:05 - CONCLUSION: No acute disease. Varghese Mejia MD Objective Remarks GENERAL: This is a well-nourished, well-developed patient, lethargic, disoriented, hallucinating, yelling "get out of my house, I am calling the police' SKIN: No rashes, ecchymoses or lesions. Cool and dry. NECK: supple, no bruit. CARDIOVASCULAR: regular rate and rhythm, no murmurs. RESPIRATORY: Clear to auscultation. Breath sounds equal bilaterally. No wheezes , rales, or rhonchi. GASTROINTESTINAL: Abdomen soft, non-tender, nondistended. No hepato-splenomegaly , or palpable masses. No guarding. MUSCULOSKELETAL: Extremities without clubbing, cyanosis, or edema. No joint tenderness, effusion, or edema noted. No calf tenderness. Negative Homans sign bilaterally. NEUROLOGICAL: Awake and disoriented, screaming at times, doesn't follow commands , with lower extremity weakness noted bilaterally, doesn't move legs. Moves arms spontaneously. Opens eyes. PSYCH: Disoriented, screaming at times, calling police, hallucinating A/P Problem List: (1) Lower extremity weakness ICD Code: R29.898 - Other symptoms and signs involving the musculoskeletal system Status: Acute (2) Atrial fibrillation with RVR ICD Code: I48.91 - Unspecified atrial fibrillation Status: Acute Assessment and Plan Sudden change in mental status, stroke alert was called. TIA. Patient improved at baseline within 2 hrs and TPA was not administered. Discussed with the family , Dr Pryor neurology, Dr Hurtado hem/onc CT stat no hgg, no acute changes CTA neck and brain stat Neurochecks Neurology ff, spoke with Dr Roya parikh . Start heparin drip and Coumadin consult pharm for Coumadin, monitor INR stroke protocol. Started IVF per neuro, monitor closely. per neuro keep BP< 160 O2 supplement keep O2 sat . 94 % consult st/pt/ot NPO , advance diet if can swallow Lower extremity weakness. MRI of the lumbar spine with degenerative changes. Patient with spinal stenosis consult neurosurgery consult neurology and PT ff Atrial fibrillation with RVR- new onset was on Cardizme drip; and amio drip. Patient converted to NSR, drips discontinued. Continue po Cardizem and amiodarone PO, seen by cardiology cleared for DC. echo reviewed normal EF 55%. Was started on eliquis 2.5 mg received 2 doses, DC eliquis. Now on heparin drip and Coumadin per neurology Hypertension: meds as above Dyslipidemia/hypothyroidism: resume home meds Pelvic soft tissue mass: pelvic sonography; outpatient f/u. DVT prophylaxis with heaprin drip/coumadin Discussed Condition With patient, nurse Transferred to ICU discussed also with Dr Garnica ICU Patient improved and TPA not administered, monitor patient, can transfer to 5N later if stable Critical care time spent 45 minutes Problem Qualifiers (1) Lower extremity weakness: Qualified Codes: R29.898 - Other symptoms and signs involving the musculoskeletal system Rosaline Morales MD Jul 30, 2017 08:01
--- NOTE | 2017-07-30 08:56 | PD.CARD.PN ---
Subjective Subjective Remarks resting comfortably. no chest pain, sob or palpitations (Nevin Barrett) Objective Medications Current Medications Medications (Trade) Dose Ordered Sig/Stu Route Start Time Stop Time Status Last Admin (Cardizem) 30 mg Q6HR PO 07/29/17 18:00 07/30/17 05:28 Sodium Chloride 1,000 ml @ 60 mls/hr [id number] ONCE IV 07/29/17 17:15 07/30/17 09:54 07/29/17 17:25 (Lopid) 600 mg BIDAC PO 07/30/17 07:00 07/30/17 05:29 (Synthroid) 75 mcg DAILY@0600 PO 07/30/17 06:00 07/30/17 05:28 (Pravachol) 40 mg DAILY PO 07/30/17 09:00 Amiodarone HCl 450 mg/Sodium Chloride 259 ml @ 33 mls/hr Q7H51M IV 07/29/17 20:00 07/30/17 05:25 (NS Flush) 2 ml UNSCH PRN IVF 07/29/17 18:15 (Eliquis) 2.5 mg BID PO 07/29/17 21:00 07/29/17 21:00 Vital Signs / I&O Vital Signs Date Time Temp Pulse Resp B/P (MAP) Pulse Ox O2 Delivery O2 Flow Rate FiO2 07/30/17 05:25 87 170/75 07/30/17 05:20 77 170/75 07/30/17 05:00 84 07/30/17 04:00 80 07/30/17 03:09 99.0 77 16 170/75 (106) 97 07/30/17 03:00 74 07/30/17 02:00 88 07/30/17 01:00 86 07/30/17 00:00 114 07/30/17 00:00 183/86 (118) 07/29/17 23:00 94 07/29/17 22:34 89 161/86 07/29/17 22:30 190/88 (122) 07/29/17 22:00 96 07/29/17 21:01 99.1 114 16 168/87 (114) 95 07/29/17 21:00 92 07/29/17 20:23 114 168/87 07/29/17 20:22 118 168/87 07/29/17 20:00 112 07/29/17 19:30 99.2 96 16 139/87 (104) 98 07/29/17 19:04 07/29/17 19:00 120 07/29/17 18:09 108 16 144/95 (111) 97 Room Air 07/29/17 15:55 103 16 176/92 (120) 97 Room Air 07/29/17 14:22 110 17 180/89 (119) 96 Room Air 07/29/17 12:28 97.8 130 20 152/82 (105) 96 Room Air 07/29/17 12:27 130 158/92 07/29/17 12:00 97.8 148 18 171/89 (116) 97 Room Air 07/29/17 11:49 158 173/96 07/29/17 10:22 103 16 178/86 (116) 96 Room Air 07/29/17 09:57 98 Room Air 07/29/17 09:52 155 16 184/113 (136) 96 Room Air 07/29/17 09:17 98.7 165 17 168/107 (127) 97 I/O 07/29/17 07/29/17 07/29/17 07/30/17 07/30/17 07/30/17 07:00 15:00 23:00 07:00 15:00 23:00 Intake Total 1000 ml 490 ml Output Total 625 ml Balance 1000 ml -135 ml Intake Oral 240 ml IV Total 1000 ml 250 ml Output Urine Total 625 ml Stool Total 0 ml Physical Exam GENERAL: SKIN: Warm and dry. HEAD: Atraumatic. Normocephalic. EYES: Pupils equal and round. ENT: No nasal bleeding or discharge. NECK: Trachea midline. No JVD. CARDIOVASCULAR: Irregularly irregular rate and rhythm, no murmurs RESPIRATORY: No accessory muscle use. Clear to auscultation. Breath sounds equal bilaterally. GASTROINTESTINAL: Abdomen soft, non-tender, nondistended. MUSCULOSKELETAL: Extremities without clubbing, cyanosis, or edema. No obvious deformities. NEUROLOGICAL: Awake and alert. No obvious cranial nerve deficits. Normal speech. PSYCHIATRIC: Appropriate mood and affect; insight and judgment normal. Laboratory Laboratory Tests Test 07/29/17 09:48 07/30/17 05:04 White Blood Count 11.4 TH/MM3 Red Blood Count 3.62 MIL/MM3 Hemoglobin 11.2 GM/DL Hematocrit 33.4 % Mean Corpuscular Volume 92.1 FL Mean Corpuscular Hemoglobin 31.0 PG Mean Corpuscular Hemoglobin Concent 33.7 % Red Cell Distribution Width 14.8 % Platelet Count 208 TH/MM3 Mean Platelet Volume 9.6 FL Neutrophils (%) (Auto) 80.6 % Lymphocytes (%) (Auto) 5.8 % Monocytes (%) (Auto) 13.2 % Eosinophils (%) (Auto) 0.1 % Basophils (%) (Auto) 0.3 % Neutrophils # (Auto) 9.1 TH/MM3 Lymphocytes # (Auto) 0.7 TH/MM3 Monocytes # (Auto) 1.5 TH/MM3 Eosinophils # (Auto) 0.0 TH/MM3 Basophils # (Auto) 0.0 TH/MM3 CBC Comment DIFF FINAL Differential Comment Prothrombin Time 10.5 SEC Prothromb Time International Ratio 1.0 RATIO Activated Partial Thromboplast Time 35.1 SEC Blood Urea Nitrogen 23 MG/DL 24 MG/DL Creatinine 0.97 MG/DL 0.84 MG/DL Random Glucose 112 MG/DL 92 MG/DL Total Protein 7.7 GM/DL Albumin 2.8 GM/DL Calcium Level 10.4 MG/DL 10.4 MG/DL Alkaline Phosphatase 81 U/L Aspartate Amino Transf (AST/SGOT) 17 U/L Alanine Aminotransferase (ALT/SGPT) 10 U/L Total Bilirubin 0.5 MG/DL Sodium Level 136 MEQ/L 135 MEQ/L Potassium Level 3.6 MEQ/L 3.5 MEQ/L Chloride Level 98 MEQ/L 99 MEQ/L Carbon Dioxide Level 28.4 MEQ/L 25.5 MEQ/L Anion Gap 10 MEQ/L 11 MEQ/L Estimat Glomerular Filtration Rate 66 ML/MIN 78 ML/MIN Total Creatine Kinase 101 U/L Troponin I 0.02 NG/ML Thyroid Stimulating Hormone 3rd Gen 2.070 uIU/ML Imaging Last 24 hours Impressions Thoracic Spine MRI 07/29/17941 Signed Impressions: Service Date/Time: July 10:29 - CONCLUSION: 1. No acute abnormality. 2. Mild diffuse degenerative disc disease without central canal compromise. Tyson Reina Jr., MD Lumbar Spine MRI 07/29/17941 Signed Impressions: Service Date/Time: July 10:29 - CONCLUSION: Multilevel degenerative changes as detailed above. Most pronounced at L2-L3 with significant central canal stenosis. There is a transitional segment at L5. There is a 7.2 x 5.3 cm soft tissue structure within the pelvis partially seen on the final images of the exam. I'm unsure if this relates to the fundus of the uterus or perhaps a soft tissue mass. Consider pelvic sonography to evaluate. Tyson Reina Jr., MD Cervical Spine MRI 07/29/17941 Signed Impressions: Service Date/Time: July 10:29 - CONCLUSION: Multilevel degenerative changes with areas of impression upon the cord no signal change within the cord to suggest edema or myelomalacia. Each level detailed in the above discussion. Tyson Reina Jr., MD Brain MRI 07/29/17941 Signed Impressions: Service Date/Time: July 10:29 - CONCLUSION: 1. No acute intracranial abnormality. 2. Extensive chronic small vessel ischemic change. Tyson Reina Jr., MD Chest X-Ray 07/29/17938 Signed Impressions: Service Date/Time: July 10:05 - CONCLUSION: No acute disease. Varghese Mejia MD (Nevin Barrett) Assessment and Plan Problem List: (1) Atrial fibrillation with RVR ICD Codes: I48.91 - Unspecified atrial fibrillation Status: Acute Assessment and Plan 85 yo AAF with HTN, HLD and hypothyroidism who presented yesterday with new onset LE weakness and found to be in afib RVR. afib RVR- remains in afib with controlled rate on amio gtt and diltiazem po. CHADS-VASC >3 = cont Eliquis SBP elevated- consider adding an additional antihypertensive echo results pending (Nevin Barrett) Assessment and Plan Now NSR. DC amio gtt. start PO amio 200 daily cont CCB. 2d echo today anticoagulation. PT/OT will sign off call with further questions (Alex Diaz MD) Nevin Barrett Jul 30, 2017 08:56 Alex Diaz MD Jul 30, 2017 12:00
[2017-07-30] MEDS ORDERED: ENOXAPARIN SODIUM 40 MG/0.4 ML SYRINGE SQ SCH (09:00)
--- NOTE | 2017-07-30 10:37 | PD.CONS ---
History of Present Illness Service Neurology Consult Requested By medicine Reason for Consult lower extremity weakness Primary Care Physician David Clark MD History of Present Illness 85 y/o female with history of hypertension, dyslipidemia, hypothyroidism admitted to the hospital for lower extremity weakness. Patient walks with a walker at her baseline over the past 6 months, but the morning of admission was unable to move her legs. She denies any antecedent trauma, but her daughter in the room states that the patient may have fallen in the closet recently. Pt denies any bowel/bladder retention or incontinence or saddle anesthesia. She denies any fevers, chills, night sweats, or early satiety. On initial workup here she was found to be in a-fib with RVR, which is a new problem for her. Review of Systems 12 point ROS reviewed and negative except as mentioned in the HPI Past Family Social History Past Medical History hypertension/dyslipidemia/hypothyroidism Past Surgical History none reported. Reported Medications Enalapril (Enalapril Maleate) 20 Mg Tab 20 Mg PO DAILY Bumetanide 1 Mg Tab 1 Mg PO DAILY Pravastatin 40 Mg Tab 40 Mg PO DAILY Fish Oil + D3 (Fish Oil-Cholecalciferol) 1,200-1,000 Mg-Unit Cap 1 Cap PO DAILY Gemfibrozil 600 Mg Tab 600 Mg PO BIDAC Take 30 minutes prior to breakfast and dinner. Levothyroxine (Levothyroxine Sodium) 75 Mcg Tab 75 Mcg PO DAILY Labetalol (Labetalol HCl) 100 Mg Tab 100 Mg PO BID Allergies: Coded Allergies: No Known Allergies Family History noncontributory Social History no alcohol or tobacco. Imaging Last Impressions Thoracic Spine MRI 07/29/17941 Signed Impressions: Service Date/Time: July 10:29 - CONCLUSION: 1. No acute abnormality. 2. Mild diffuse degenerative disc disease without central canal compromise. Tyson Reina Jr., MD Lumbar Spine MRI 07/29/17941 Signed Impressions: Service Date/Time: July 10:29 - CONCLUSION: Multilevel degenerative changes as detailed above. Most pronounced at L2-L3 with significant central canal stenosis. There is a transitional segment at L5. There is a 7.2 x 5.3 cm soft tissue structure within the pelvis partially seen on the final images of the exam. I'm unsure if this relates to the fundus of the uterus or perhaps a soft tissue mass. Consider pelvic sonography to evaluate. Tyson Reina Jr., MD Cervical Spine MRI 07/29/17941 Signed Impressions: Service Date/Time: July 10:29 - CONCLUSION: Multilevel degenerative changes with areas of impression upon the cord no signal change within the cord to suggest edema or myelomalacia. Each level detailed in the above discussion. Tyson Reina Jr., MD Brain MRI 07/29/17941 Signed Impressions: Service Date/Time: July 10:29 - CONCLUSION: 1. No acute intracranial abnormality. 2. Extensive chronic small vessel ischemic change. Tyson Reina Jr., MD Chest X-Ray 07/29/17938 Signed Impressions: Service Date/Time: July 10:05 - CONCLUSION: No acute disease. Varghese Mejia MD EKG; atrial fibrillation with RVR Review of Systems Constitutional: Negative except HPI Eye: Negative Except HPI ENMT: Negative except HPI Respiratory: Negative except HPI Cardiovascular: Negative except HPI Gastrointestinal: Negative except HPI Ajit/Lymph: Negative except HPI Musculoskeletal: Negative except HPI Neurologic: Negative except HPI Psychiatric: Negative except HPI All other ROS: Negative, ROS reviewed as documented in chart Past Family Social History Allergies: Coded Allergies: No Known Allergies (Verified Allergy, Unknown, 07/29/17) Active Ordered Medications Current Medications Medications (Trade) Dose Ordered Sig/Stu Route Start Time Stop Time Status Last Admin (Cardizem) 30 mg Q6HR PO 07/29/17 18:00 07/30/17 05:28 (Lopid) 600 mg BIDAC PO 07/30/17 07:00 07/30/17 05:29 (Synthroid) 75 mcg DAILY@0600 PO 07/30/17 06:00 07/30/17 05:28 (Pravachol) 40 mg DAILY PO 07/30/17 09:00 Amiodarone HCl 450 mg/Sodium Chloride 259 ml @ 33 mls/hr Q7H51M IV 07/29/17 20:00 07/30/17 05:25 (NS Flush) 2 ml UNSCH PRN IVF 07/29/17 18:15 (Eliquis) 2.5 mg BID PO 07/29/17 21:00 07/29/17 21:00 Exam I&O / VS Vital Signs Date Time Temp Pulse Resp B/P (MAP) Pulse Ox O2 Delivery O2 Flow Rate FiO2 07/30/17 07:00 91 07/30/17 07:00 98.8 81 16 176/75 (108) 98 07/30/17 05:25 87 170/75 07/30/17 05:20 77 170/75 07/30/17 05:00 84 07/30/17 04:00 80 07/30/17 03:09 99.0 77 16 170/75 (106) 97 07/30/17 03:00 74 07/30/17 02:00 88 07/30/17 01:00 86 07/30/17 00:00 114 07/30/17 00:00 183/86 (118) 07/29/17 23:00 94 07/29/17 22:34 89 161/86 07/29/17 22:30 190/88 (122) 07/29/17 22:00 96 07/29/17 21:01 99.1 114 16 168/87 (114) 95 07/29/17 21:00 92 07/29/17 20:23 114 168/87 07/29/17 20:22 118 168/87 07/29/17 20:00 112 07/29/17 19:30 99.2 96 16 139/87 (104) 98 07/29/17 19:04 07/29/17 19:00 120 07/29/17 18:09 108 16 144/95 (111) 97 Room Air 07/29/17 15:55 103 16 176/92 (120) 97 Room Air 07/29/17 14:22 110 17 180/89 (119) 96 Room Air 07/29/17 12:28 97.8 130 20 152/82 (105) 96 Room Air 07/29/17 12:27 130 158/92 07/29/17 12:00 97.8 148 18 171/89 (116) 97 Room Air 07/29/17 11:49 158 173/96 General: Alert and Oriented, No acute distress Eye: PERRL, EOMI Respiratory: Non-labored respirations, Symmetrical expansion Cardiology: Irregular Rhythm Musculoskeletal: Tenderness (knees and both hips), Swelling (several apparent lipomas, left knee mild swelling as well) Neurologic: Alert, Oriented, CN II-XII intact Psychiatric: Appropriate mood & affect, Other (cooperative at times, but gives variable effort due to pain) Exam Comments ox3, speech fluent, slow mental processing, strength testing limited due to pain with variable results, left hand mild edema with decreased receiving team member, will not extend legs due to resultant low back pain, dorsiflexion/plantarflexion both ankles4-/5, no clonus, trace MSR, babinski equivocal, sensory diminished in stocking distribution B/L Review/Management Diagnosis/Plan: (1) Lower extremity weakness ICD Codes: R29.898 - Other symptoms and signs involving the musculoskeletal system Status: Acute Plan: MRIs reviewed, NAICP, Lumbar central canal stenosis PT/OT Fall precautions (2) Atrial fibrillation with RVR ICD Codes: I48.91 - Unspecified atrial fibrillation Status: Acute Plan: Per Cardiology Started on Eliquis for stroke prophy Cardizem drip (3) Lumbar canal stenosis ICD Codes: M48.061 - Spinal stenosis, lumbar region without neurogenic claudication Plan: Nsx consult pending MRIs reviewed with central canal stenosis L2-L3 Problem Qualifiers (1) Lower extremity weakness: Qualified Codes: R29.898 - Other symptoms and signs involving the musculoskeletal system Shon Zimmerman Jul 30, 2017 10:37
[2017-07-30] MEDS: APIXABAN 2.5 MG TABLET PO SCH (11:10)
[2017-07-30] MEDS: PRAVASTATIN SOD 40 MG TAB PO SCH (11:10)
--- NOTE | 2017-07-30 12:08 | ECHRPT ---
Indication: a fib/flutter CONCLUSIONS Normal left ventricular size. The left ventricular systolic function is low normal with an estimated ejection fraction in the rang e of 50- 55%. The left atrial size is mildly dilated. Mild mitral valve regurgitation. No aortic valve regurgitation. No aortic valve stenosis. There is mild tricuspid valve regurgitation. The estimated pulmonary arterial pressure is 55.7 mmHg. BP: / HR: Rhythm: MEASUREMENTS (Male / Female) Normal Values Technical Quality:Good 2D ECHO LV Diastolic Diameter PLAX 3.3 cm 4.2 - 5.9 / 3.9 - 5.3 cm LV Systolic Diameter PLAX 2.6 cm IVS Diastolic Thickness 2.0 cm 0.6 - 1.0 / 0.6 - 0.9 cm LVPW Diastolic Thickness 1.3 cm 0.6 - 1.0 / 0.6 - 0.9 cm LV Relative Wall Thickness 1.0 RV Internal Dim ED PLAX 2.6 cm M-MODE Aortic Root Diameter MM 3.6 cm LA Systolic Diameter MM 4.6 cm LA Ao Ratio MM 1.3 AV Cusp Separation MM 2.0 cm DOPPLER Mitral E Point Velocity 75.0 cm/s Mitral A Point Velocity 85.9 cm/s Mitral E to A Ratio 0.9 LV E' Lateral Velocity 3.7 cm/s Mitral E to LV E' Lateral Ratio 20.1 LV E' Septal Velocity 4.2 cm/s Mitral E to LV E' Septal Ratio 17.9 TR Peak Velocity 338.0 cm/s TR Peak Gradient 45.7 mmHg Right Atrial Pressure 10.0 mmHg Pulmonary Artery Systolic Pressu 55.7 mmHg Right Ventricular Systolic Press 55.7 mmHg FINDINGS LEFT VENTRICLE Normal left ventricular size. The left ventricular systolic function is low normal with an estimated ejection fraction in the rang e of 50- 55%. RIGHT VENTRICLE Normal right ventricular size and systolic function. LEFT ATRIUM The left atrial size is mildly dilated. RIGHT ATRIUM The right atrial size is normal. ATRIAL SEPTUM Normal atrial septal thickness without atrial level shunting by limited color doppler interrogation. AORTA The aortic root and proximal ascending aorta are normal in size on limited imaging. MITRAL VALVE Structurally normal mitral valve. Mild mitral valve regurgitation. AORTIC VALVE Trileaflet aortic valve. No aortic valve regurgitation. No aortic valve stenosis. TRICUSPID VALVE Structurally normal tricuspid valve. There is mild tricuspid valve regurgitation. The estimated pulmonary arterial pressure is 55.7 mmHg. PULMONARY VALVE No pulmonary valve regurgitation or stenosis. VESSELS The inferior vena cava is normal in size. PERICARDIUM No pericardial effusion. Alex Diaz MD, FACC (Electronically Signed) Final Date:30 July 2017 12:07
[2017-07-30] MEDS ORDERED: NALOXONE HCL 0.4 MG/ML AMP IV PUSH PRN (12:30)
[2017-07-30] MEDS ORDERED: LACTULOSE SYRUP 20 GM/30 ML CUP PO PRN (13:00)
[2017-07-30] MEDS ORDERED: MAGNESIUM HYDROXIDE SUSP 30 ML CUP PO PRN (13:00)
[2017-07-30] MEDS ORDERED: BISACODYL 10 MG SUPP RECTAL PRN (13:00)
[2017-07-30] MEDS ORDERED: SENNOSIDES 8.6 MG TAB PO PRN (13:00)
[2017-07-30] MEDS ORDERED: GLUCAGON 1 MG/ML VIAL OTHER PRN (13:15)
[2017-07-30] MEDS ORDERED: DEXTROSE 50% IN WATER 50 ML VIAL(D50) IV PUSH PRN (13:15)
[2017-07-30] MEDS ORDERED: SODIUM CHLORIDE 0.9% FLUSH 10 ML FLUSH IV FLUSH PRN (13:15)
[2017-07-30 13:54] LABS: AUTOMATED NEUTROPHIL # 8.1 TH/MM3 (1.8-7.7); BASOPHIL % 0.5 % (0.0-2.0); EOSINOPHIL % 0.4 % (0.0-4.0); HEMATOCRIT 30.2 % (35.0-46.0); HEMOGLOBIN 10.2 GM/DL (11.6-15.3); LYMPH % 7.8 % (9.0-44.0); LYMPHOCYTE # 0.8 TH/MM3 (1.0-4.8); MEAN CELL VOLUME 92.8 FL (80.0-100.0); MEAN CORPUSCULAR HEMOGLOBIN 31.2 PG (27.0-34.0); MEAN CORPUSCULAR HGB CONC 33.6 % (32.0-36.0); MEAN PLATELET VOLUME 9.6 FL (7.0-11.0); MONO % 12.3 % (0.0-8.0); MONOCYTE # 1.3 TH/MM3 (0-0.9); PLATELET COUNT 253 TH/MM3 (150-450); RED BLOOD COUNT 3.26 MIL/MM3 (4.00-5.30); RED CELL DISTRIBUTION WIDTH 14.7 % (11.6-17.2); WHITE BLOOD COUNT 10.3 TH/MM3 (4.0-11.0)
--- NOTE | 2017-07-30 14:03 | PD.CONS ---
[facility] Service neurosurg Consult Requested By Rupa Reason for Consult spinal stenosis Primary Care Physician David Clark MD History of Present Illness This is a 85 y/o female with history of hypertension, dyslipidemia, hypothyroidism admitted to the hospital for lower extremity weakness. She usually walks with a walker at her baseline over the past 6 months, but the morning of admission was unable to ambulate or move her legs. She denies any antecedent trauma, but her daughter in the room states that the patient may have fallen inise her closet recently. Pt denies any bowel/bladder retention or incontinence or saddle anesthesia. She denies any fevers, chills, night sweats, or early satiety. Apparently she came into the emergency room complaining of lower extremity weakness. She was found to have spinal stenosis. neurosurgical consultation was requested. She underwent a cardiology workup and was found to have new onset atrial fibrillation with rapid ventricular response. The patient was started on Eliquis 2.5 milligrams last night. The patient around noon-time was found to have altered mental status and was unresponsive. A stroke alert was called in. Dr. Morales wanted hematology consult to see whether the patient could have tPA as patient is on low dose Eliquis. Apparently the change in mental status was very brief. She subsequently developed weakness in her left upper extremity. She came back to baseline very rapidly.Therefore, Dr. Puente did not recommend any tPA. It is being thought that the patient possibly had a TIA and now she is on full dose heparin which will be transition into Coumadin. The patient was transfered into the ICU Review of Systems Constitutional: DENIES: Diaphoretic episodes, Fatigue, Fever, Weight gain, Weight loss, Chills, Dizziness, Change in appetite, Night Sweats Endocrine: DENIES: Abnorml menstrual pattern, Heat/cold intolerance, Polydipsia , Polyuria, Polyphagia Eyes: DENIES: Blurred vision, Diplopia, Eye inflammation, Eye pain, Vision loss , Photosensitivity, Double Vision Ears, nose, mouth, throat: DENIES: Tinnitus, Hearing loss, Vertigo, Nasal discharge, Oral lesions, Throat pain, Hoarseness, Ear Pain, Running Nose, Epistaxis, Sinus Pain, Toothache, Odynophagia Respiratory: DENIES: Apneas, Cough, Snoring, Wheezing, Hemoptysis, Sputum production, Shortness of breath Cardiovascular: DENIES: Chest pain, Palpitations, Syncope, Dyspnea on Exertion , PND, Lower Extremity Edema, Orthopnea, Claudication Gastrointestinal: DENIES: Abdominal pain, Black stools, Bloody stools, Constipation, Diarrhea, Nausea, Vomiting, Difficulty Swallowing, Anorexia Genitourinary: DENIES: Abnormal vaginal bleeding, Dysmenorrhea, Dyspareunia, Sexual dysfunction, Urinary frequency, Urinary incontinence, Urgency, Hematuria , Dysuria, Nocturia, Vaginal discharge Musculoskeletal: COMPLAINS OF: Back pain, DENIES: Joint pain, Muscle aches, Stiffness, Joint Swelling, Neck pain Integumentary: DENIES: Abnormal pigmentation, Pruritus, Rash, Nail changes, Breast masses, Breast skin changes, Nipple discharge Hematologic/lymphatic: DENIES: Bruising, Lymphadenopathy Immunologic/allergic: DENIES: Eczema, Urticaria Neurologic: COMPLAINS OF: Abnormal gait, Localized weakness, Paresthesias, DENIES: Headache, Seizures, Speech Problems, Tremor, Poor Balance Psychiatric: COMPLAINS OF: Anxiety, Confusion, DENIES: Mood changes, Depression , Hallucinations, Agitation, Suicidal Ideation, Homicidal Ideation, Delusions Past Family Social History Allergies: Coded Allergies: No Known Allergies (Verified Allergy, Unknown, 07/29/17) Past Medical History 1. Hypertension. 2. Hypercholesterolemia. 3. Hypothyroidism. Past Surgical History Negative Reported Medications 1. Enalapril. 2. Bumex. 3. Pravastatin. 4. Fish oil. 5. Gemfibrozil. 6. Levothyroxine. 7. Labetalol. Active Ordered Medications Current Medications Diltiazem HCl 125 mg/Sodium Chloride 125 ml @ 5 mls/hr TITRATE PRN IV tachycardia Last administered on 07/29/17at 11:49; Start 07/29/17 at 09:45; Stop at 18:12; Status DC Diltiazem HCl (Cardizem Inj) 20 mg BOLUS ONCE IV PUSH Last administered on 07/29at 09:51; Start 07/29/17 at 09:45; Stop 07/29/17 at 09:46; Status DC Sodium Chloride 1,000 ml @ 100 mls/hr Q10H IV Last administered on 07/29/17at 09 :51; Start 07/29/17 at 09:45; Stop 07/29/17 at 17:17; Status DC Diltiazem HCl (Cardizem) 30 mg Q6HR PO Last administered on 07/30/17at 05:28; Start 07/29/17 at 18:00; Stop 07/30/17 at 12:01; Status DC Sodium Chloride 1,000 ml @ 60 mls/hr [id number] ONCE IV Last administered on at 17:25; Start 07/29/17 at 17:15; Stop 07/30/17 at 09:54; Status DC Enoxaparin Sodium (Lovenox Inj) 40 mg Q24H SQ ; Start 07/30/17 at 09:00; Stop 07/30/17 at 09:00; Status DC Gemfibrozil (Lopid) 600 mg BIDAC PO Last administered on 07/30/17at 05:29; Start 07/30/17 at 07:00 Levothyroxine Sodium (Synthroid) 75 mcg DAILY@0600 PO Last administered on at 05:28; Start 07/30/17 at 06:00 Pravastatin Sodium (Pravachol) 40 mg DAILY PO Last administered on 07/30/17at 11: 10; Start 07/30/17 at 09:00 Amiodarone HCl 450 mg/Sodium Chloride 259 ml @ 33 mls/hr Q7H51M IV Last administered on 07/30/17at 05:25; Start 07/29/17 at 20:00; Stop 07/30/17 at 11:59; Status DC Sodium Chloride (NS Flush) 2 ml UNSCH PRN IVF FLUSH AFTER USING IV ACCESS; Start 07/29/17 at 18:15; Stop 07/30/17 at 13:11; Status DC Amiodarone HCl 150 mg/Dextrose 100 ml @ 100 mls/hr Q1H ONCE IV Last administered on 07/29/17at 20:22; Start 07/29/17 at 18:10; Stop 07/30/17 at 11:59; Status DC Apixaban (Eliquis) 2.5 mg BID PO Last administered on 07/30/17at 11:10; Start 07/29/17 at 21:00 Morphine Sulfate (Morphine Inj) 2 mg ONCE ONCE IV PUSH Last administered on 07/30/17at 00:06; Start 07/29/17 at 23:00; Stop 07/29/17 at 23:01; Status DC Clonidine (Catapres) 0.1 mg ONCE ONCE PO Last administered on 07/30/17at 02:09; Start 07/30/17 at 02:00; Stop 07/30/17 at 02:02; Status DC Amiodarone HCl (Cordarone) 200 mg DAILY PO ; Start 07/30/17 at 12:00 Diltiazem HCl (Cardizem Cd) 240 mg DAILY PO ; Start 07/30/17 at 12:15 Lisinopril (Prinivil) 10 mg DAILY PO ; Start 07/31/17 at 09:00 Hydralazine HCl (Apresoline) 50 mg Q8HR PRN PO SBP>160, DBP>90; Start 07/30/17 at 12:15 Acetaminophen/ Hydrocodone Bitart (Hildreth 5-325 Mg) 1 tab Q6H PRN PO PAIN 2-10 ; Start 07/30/17 at 13:00 Naloxone HCl (Narcan Inj) 0.4 mg UNSCH PRN IV PUSH SEE LABEL COMMENTS; Start at 12:30 Senna/Docusate Sodium (Caridad-Colace) 1 tab BID PO ; Start 07/30/17 at 21:00 Magnesium Hydroxide (Milk Of Magnesia Liq) 30 ml Q12H PRN PO Mild constipation ; Start 07/30/17 at 13:00 Sennosides (Senokot) 17.2 mg Q12H PRN PO Moderate constipation; Start 07/30/17 at 13:00 Bisacodyl (Dulcolax Supp) 10 mg DAILY PRN RECTAL SEVERE CONSITIPATION; Start at 13:00 Lactulose (Lactulose Liq) 30 ml DAILY PRN PO SEVERE CONSITIPATION; Start at 13:00 Sodium Chloride (NS Flush) 2 ml BID IV FLUSH ; Start 07/30/17 at 21:00 Sodium Chloride (NS Flush) 2 ml UNSCH PRN IV FLUSH FLUSH AFTER USING IV ACCESS ; Start 07/30/17 at 13:15 Insulin Aspart (NovoLOG SUPPLEMENTAL SCALE) 1 ACHS SQ ; Start 07/30/17 at 17:00 Dextrose (D50w (Vial) Inj) 50 ml UNSCH PRN IV PUSH HYPOGLYCEMIA-SEE COMMENTS; Start 07/30/17 at 13:15 Glucagon (Glucagon Inj) 1 mg UNSCH PRN OTHER HYPOGLYCEMIA-SEE COMMENTS; Start 07/30/17 at 13:15 Sodium Chloride 1,000 ml @ 84 mls/hr [id number] IV ; Start 07/30/17 at 14:00 Family History Family history was reviewed. No family history of stroke or blood clots. Social History The patient does not smoke cigarettes, does not drink alcohol. Physical Exam Vital Signs Vital Signs Date Time Temp Pulse Resp B/P (MAP) Pulse Ox O2 Delivery O2 Flow Rate FiO2 07/30/17 11:00 98.3 82 16 177/77 (110) 96 07/30/17 11:00 92 07/30/17 07:00 91 07/30/17 07:00 98.8 81 16 176/75 (108) 98 07/30/17 05:25 87 170/75 07/30/17 05:20 77 170/75 07/30/17 05:00 84 07/30/17 04:00 80 07/30/17 03:09 99.0 77 16 170/75 (106) 97 07/30/17 03:00 74 07/30/17 02:00 88 07/30/17 01:00 86 07/30/17 00:00 114 07/30/17 00:00 183/86 (118) 07/29/17 23:00 94 07/29/17 22:34 89 161/86 07/29/17 22:30 190/88 (122) 07/29/17 22:00 96 07/29/17 21:01 99.1 114 16 168/87 (114) 95 07/29/17 21:00 92 07/29/17 20:23 114 168/87 07/29/17 20:22 118 168/87 07/29/17 20:00 112 07/29/17 19:30 99.2 96 16 139/87 (104) 98 07/29/17 19:04 07/29/17 19:00 120 07/29/17 18:09 108 16 144/95 (111) 97 Room Air 07/29/17 15:55 103 16 176/92 (120) 97 Room Air 07/29/17 14:22 110 17 180/89 (119) 96 Room Air Physical Exam The patient is alert, awake and oriented to time, place and person. Speech is fluent. Cranial nerve examination: pupils to be equal, round and reactive to light. Extra-ocular movements are intact. Facial motor and sensory function are normal and symmetrical. Gross hearing appears intact. Sternocleidomastoid and trapezius muscles are symmetrical. Other cranial nerves are intact. Neck is soft and supple with a decreased range of motion Muscle strength is normal in all muscle groups of her right upper extremitie. She is able to raise her left upper extremity against gravity, but she is unable to polish compounder Sensory examination is intact to light touch and pin prick in both the upper and lower extremities. Deep tendon reflexes are symmetrical in both upper extremities, trace in her knees and ankles. There is a bilateral plantar flexion response. Cerebellar examination is very limited due to her condition Lungs: clear, nonlabored breathing, no wheezing Heart: S1, S2, regular rhythm and rate Skin: warm and dry, no cyanosis. Laboratory Laboratory Tests Test 07/30/17 05:04 07/30/17 11:35 07/30/17 13:43 Blood Urea Nitrogen 24 Creatinine 0.84 Random Glucose 92 Calcium Level 10.4 Sodium Level 135 Potassium Level 3.5 Chloride Level 99 Carbon Dioxide Level 25.5 Anion Gap 11 Estimat Glomerular Filtration Rate 78 Erythrocyte Sedimentation Rate GREATER THAN 140 Total Creatine Kinase 68 C-Reactive Protein 35.00 Vitamin B12 Level 825 White Blood Count 10.3 Red Blood Count 3.26 Hemoglobin 10.2 Bedside Hemoglobin 9.9 Hematocrit 30.2 Bedside Hematocrit 29.0 Mean Corpuscular Volume 92.8 Mean Corpuscular Hemoglobin 31.2 Mean Corpuscular Hemoglobin Concent 33.6 Red Cell Distribution Width 14.7 Platelet Count 253 Mean Platelet Volume 9.6 Neutrophils (%) (Auto) 79.0 Lymphocytes (%) (Auto) 7.8 Monocytes (%) (Auto) 12.3 Eosinophils (%) (Auto) 0.4 Basophils (%) (Auto) 0.5 Neutrophils # (Auto) 8.1 Lymphocytes # (Auto) 0.8 Monocytes # (Auto) 1.3 Eosinophils # (Auto) 0.0 Basophils # (Auto) 0.0 CBC Comment DIFF FINAL Differential Comment Bedside Sodium 137 Bedside Potassium 3.8 Bedside Chloride 101 Bedside Blood Urea Nitrogen 25 Bedside Creatinine 0.9 Bedside Glucose 110 Result Diagram: 07/30/17 1343 07/30/17 0504 Imaging Last [address] 07/30/17 0000 Signed Impressions: Service Date/Time: Sunday, July 30, 2017 13:46 - CONCLUSION: 1. Senescent changes with prominent periventricular small vessel ischemic white matter demyelination. 2. No acute intracranial abnormality. Holden Bai MD Thoracic Spine MRI 07/29/1742 Signed Impressions: Service Date/Time: July 10:29 - CONCLUSION: 1. No acute abnormality. 2. Mild diffuse degenerative disc disease without central canal compromise. Tyson Reina Jr., MD Lumbar Spine MRI 07/29/1742 Signed Impressions: Service Date/Time: July 10:29 - CONCLUSION: Multilevel degenerative changes as detailed above. Most pronounced at L2-L3 with significant central canal stenosis. There is a transitional segment at L5. There is a 7.2 x 5.3 cm soft tissue structure within the pelvis partially seen on the final images of the exam. I'm unsure if this relates to the fundus of the uterus or perhaps a soft tissue mass. Consider pelvic sonography to evaluate. Tyson Reina Jr., MD Cervical Spine MRI 07/29/1742 Signed Impressions: Service Date/Time: July 10:29 - CONCLUSION: Multilevel degenerative changes with areas of impression upon the cord no signal change within the cord to suggest edema or myelomalacia. Each level detailed in the above discussion. Tyson Reina Jr., MD Brain MRI 07/29/1742 Signed Impressions: Service Date/Time: July 10:29 - CONCLUSION: 1. No acute intracranial abnormality. 2. Extensive chronic small vessel ischemic change. Tyson Reina Jr., MD Chest X-Ray 07/29/1739 Signed Impressions: Service Date/Time: July 10:05 - CONCLUSION: No acute disease. Varghese Mejia MD Attending Statement Neuro. Neuro checks every 1 hr. I do not think she suffered a stroke,. I do not think her deficits are related to her lumbar stenosis. EEG ordered. She may need an LP to frule out Marcelle [place] Syndrome, however she was started on coumadin, whitney her workup may need to wait I do not think her spinal stenosis is related to the weakness in her left upper extremity recommend physical therapy. Surgery should be a last resort, however, can not use anticoagulation if surgical procedure is to be considered. Recommend. consult to [employer] for management of atrial fibrillation Physical therapy assessment Pulmonary.. Continue aggressive pulmonary toilette, nasotracheal suction, and breathing treatments with nebulizers. Nutrition. NPO Renal. monitor closely urine output, BUN and creatinine Endocrine. Monitor serial Acu checks and SSI as needed in detail ID monitor for signs of infection Protonix for stress ulcer prophylaxis Nikhil hose and SCD's for DVT prophylaxis. Pravin Varela MD Jul 30, 2017 14:03
--- NOTE | 2017-07-30 14:06 | RADRPT ---
EXAM DATE/TIME: 07/30/2017 13:46 [facility] COMPARISON: CT BRAIN W/O CONTRAST, February 27, 2012, 20:49. INDICATIONS : Stroke alert, acute confusion and agitation. Not following commands RADIATION DOSE: 56.35 CTDIvol (mGy) This report was called by Dr. Harris to Dr. Brown at 1400 MEDICAL HISTORY : Non-responsive. SURGICAL HISTORY : Non-responsive. ENCOUNTER: Initial ACUITY: 1 day PAIN SCALE: Non-responsive LOCATION: cranial TECHNIQUE: Multiple contiguous axial images were obtained of the head. Using automated exposure control and adj ustment of the mA and/or kV according to patient size, radiation dose was kept as low as reasonably a chievable to obtain optimal diagnostic quality images. DICOM format image data is available electro nically for review and comparison. FINDINGS: CEREBRUM: Moderate diffuse cerebral volume loss. Prominent periventricular white matter hypodensities. Solorio-whi te matter differentiation is grossly maintained. The ventricles are normal for degree of atrophy. No evidence of midline shift, mass lesion or hemorrhage. No extra-axial fluid collections are seen. POSTERIOR FOSSA: The cerebellum and brainstem are intact. The 4th ventricle is midline. The cerebellopontine angle i s unremarkable. EXTRACRANIAL: The visualized portion of the orbits is intact. SKULL: The calvaria is intact. No evidence of skull fracture. CONCLUSION: 1. Senescent changes with prominent periventricular small vessel ischemic white matter demyelination. 2. No acute intracranial abnormality. Holden Bai MD on July 30, 2017 at 13:59 Board Certified Radiologist. This report was verified electronically.
[2017-07-30 14:18] LABS: TROPONIN I LESS THAN 0.02 NG/ML (0.02-0.05)
[2017-07-30 14:19] LABS: PROTHROMBIN TIME - PATIENT 10.2 SEC (9.8-11.6)
[2017-07-30 14:21] LABS: FIBRINOGEN GREATER THAN 860 mg/dL (227-377)
[2017-07-30] MEDS ORDERED: IODIXANOL 320 MG/ML 10 ML VIAL (for Rad CT) IVCONTRAST ONE (14:28)
--- NOTE | 2017-07-30 14:28 | RADRPT ---
EXAM DATE/TIME: 07/30/2017 13:19 [facility] COMPARISON: CHEST SINGLE AP, July 29, 2017, 10:05. INDICATIONS : Chest pain. MEDICAL HISTORY : Hypertension. SURGICAL HISTORY : None. ENCOUNTER: Subsequent ACUITY: 1 day PAIN SCORE: 5/10 LOCATION: Bilateral chest FINDINGS: A single view of the chest demonstrates minimal left basilar density. Elevation left hemidiaphragm. H eart mildly enlarged. Osseous structures are intact. CONCLUSION: 1. Probable left basilar atelectasis. 2. Slight elevation left hemidiaphragm. Deep Aviles MD on July 30, 2017 at 14:24 Board Certified Radiologist. This report was verified electronically.
[2017-07-30] MEDS: SODIUM CHLOR 0.9% 1000 ML INJ 1,000 ML IV SCH (14:40)
--- NOTE | 2017-07-30 14:49 | RADRPT ---
EXAM DATE/TIME: 07/30/2017 13:52 [facility] COMPARISON: No previous studies available for comparison. INDICATIONS : Stroke alert, acute confusion and agitation. IV CONTRAST: 75 cc Visipaque (iodixanol) IV ; Cumulative dose for multiple exams. RADIATION DOSE: 9.53 CTDIvol (mGy) ; Combined studies MEDICAL HISTORY : Non-responsive. SURGICAL HISTORY : Non-responsive. ENCOUNTER: Initial ACUITY: 1 day PAIN SCALE: Non-responsive LOCATION: cranial TECHNIQUE: Volumetric scanning was performed using a multi-row detector CT scanner. The data was post processed with a variety of visualization algorithms including full volume maximum intensity projection, multi -planar sliding thin slab reformation, curved planar reformation, and surface rendering techniques. Using automated exposure control and adjustment of the mA and/or kV according to patient size, radiat ion dose was kept as low as reasonably achievable to obtain optimal diagnostic quality images. DICO M format image data is available electronically for review and comparison. FINDINGS: Anterior circulation: Heavily calcified distal intracranial carotid arteries. Flow extends to the middle and anterior cereb ral arteries. Hypoplastic right A1 segment. There is no evidence for aneurysm, vessel truncation or s ignificant focal stenosis, and no evidence for vascular malformation. Posterior circulation: Symmetric distal vertebral arteries with flow extending to basilar artery. There is no evidence for aneurysm, vessel truncation or significant focal stenosis, and no evidence for vascular malformation. CONCLUSION: 1. Heavily calcified distal intracranial carotid arteries. 2. No evidence for large vessel occlusion. Holden Bai MD on July 30, 2017 at 14:35 Board Certified Radiologist. This report was verified electronically.
--- NOTE | 2017-07-30 15:22 | RADRPT ---
EXAM DATE/TIME: 07/30/2017 13:52 [facility] COMPARISON: No previous studies available for comparison. INDICATIONS : Stroke alert, acute confusion and acute agitation. IV CONTRAST: 75 cc Visipaque (iodixanol) IV ; Cumulative dose for multiple exams. RADIATION DOSE: 9.53 CTDIvol (mGy) ; Combined studies MEDICAL HISTORY : Non-responsive. SURGICAL HISTORY : Non-responsive. ENCOUNTER: Initial ACUITY: 1 day PAIN SCALE: Non-responsive LOCATION: cranial Elevated flow velocities and ICA/CCA ratios have been found to correlate with increased degrees of vessel stenosis, calculated as percentage of diameter relative to a normal segment of distal ICA/CCA. TECHNIQUE: Volumetric scanning was performed using a multirow detector CT scanner. The data was post processed with a variety of visualization algorithms including full-volume maximum intensity projection, multip lanar sliding thin-slab reformation, curved-planar reformation, and surface-rendering techniques. Us ing automated exposure control and adjustment of the mA and/or kV according to patient size, radiatio n dose was kept as low as reasonably achievable to obtain optimal diagnostic quality images. DICOM f ormat image data is available electronically for review and comparison. FINDINGS: AORTIC ARCH: There is a three-vessel origin of the great vessels from the aorta. No evidence of ostial narrowing. RIGHT CAROTID: The common carotid artery is intact. The carotid bulb has a normal configuration without ulceration o r narrowing. The internal carotid artery lumen is smooth without stenosis. The external carotid zhen ry is intact. LEFT CAROTID: The common carotid artery is intact. The carotid bulb has a normal configuration without ulceration or narrowing. The internal carotid artery lumen is smooth without stenosis. The external carotid ar joe is intact. VERTEBRALS: The vertebral arteries have a symmetric diameter. Calcified plaque is seen throughout both vertebral arteries. This generates a 60% stenosis involving the origin of the right vertebral artery and a 50% stenosis involving the left vertebral artery at the level of the C2-C3 disc space. CONCLUSION: 1. Patent carotid arteries. 2. 50-60% stenoses involving both vertebral arteries. Tyson Reina Jr., MD on July 30, 2017 at 15:01 Board Certified Radiologist. This report was verified electronically.
[2017-07-30] MEDS: AMIODARONE 200 MG TAB PO SCH (15:39)
[2017-07-30] MEDS: DILTIAZEM-CD 240 MG CAP ER PO SCH (15:39)
[2017-07-30] MEDS ORDERED: HEPARIN-D5W 25,000 U/250 ML 250 ML IV PRN (15:45)
--- NOTE | 2017-07-30 15:51 | HHI.CCPN ---
Subjective Remarks/Hospital Course History of Present Illness patient is a 85 y/o female with history of hypertension, dyslipidemia, hypothyroidism who presented to ER with lower extremity weakness. she says that she normally walks with a walker. but this morning she wasn't able to move her legs. she denies any headache, slurred speech or vision changes. she denies any urine or stool incontinence. she denies any chest pain, sob or dizziness. she was found to be in a-fib with RVR. she doesn't report any history of atrial fibrillation. Patient was started on Eliquis and was also evaluated by neurosurgery Dr. Varela for lower extremity weakness for lumbar spinal stenosis. Review of Systems Constitutional: DENIES: Fever, Weight loss, Chills, Night Sweats Eyes: DENIES: Blurred vision, Diplopia, Vision loss, Double Vision Ears, nose, mouth, throat: DENIES: Tinnitus, Vertigo, Throat pain, Epistaxis Respiratory: DENIES: Apneas, Cough, Snoring, Wheezing, Hemoptysis, Sputum production, Shortness of breath Cardiovascular: DENIES: Chest pain, Palpitations, Syncope, Dyspnea on Exertion , PND, Lower Extremity Edema, Orthopnea, Claudication Gastrointestinal: DENIES: Abdominal pain, Black stools, Bloody stools, Constipation, Diarrhea, Nausea, Vomiting, Difficulty Swallowing, Anorexia Genitourinary: DENIES: Urinary frequency, Urgency, Hematuria, Dysuria Musculoskeletal: DENIES: Joint pain, Muscle aches, Stiffness, Joint Swelling Integumentary: DENIES: Rash Neurologic: COMPLAINS OF: Abnormal gait, DENIES: Headache, Localized weakness, Paresthesias, Seizures, Speech Problems, Tremor, Poor Balance Psychiatric: DENIES: Anxiety, Confusion, Mood changes, Depression, Hallucinations, Agitation, Suicidal Ideation, Homicidal Ideation, Delusions Past Family Social History Past Medical History hypertension/dyslipidemia/hypothyroidism Past Surgical History none reported. Reported Medications Enalapril (Enalapril Maleate) 20 Mg Tab 20 Mg PO DAILY Bumetanide 1 Mg Tab 1 Mg PO DAILY Pravastatin 40 Mg Tab 40 Mg PO DAILY Fish Oil + D3 (Fish Oil-Cholecalciferol) 1,200-1,000 Mg-Unit Cap 1 Cap PO DAILY Gemfibrozil 600 Mg Tab 600 Mg PO BIDAC Take 30 minutes prior to breakfast and dinner. Levothyroxine (Levothyroxine Sodium) 75 Mcg Tab 75 Mcg PO DAILY Labetalol (Labetalol HCl) 100 Mg Tab 100 Mg PO BID Allergies: Coded Allergies: No Known Allergies (Verified Allergy, Unknown, 07/29/17) Active Ordered Medications Current Medications Diltiazem HCl 125 mg/Sodium Chloride 125 ml @ 5 mls/hr TITRATE PRN IV tachycardia Last administered on 07/29/17at 11:49; Start 07/29/17 at 09:45; Stop at 18:12; Status DC Diltiazem HCl (Cardizem Inj) 20 mg BOLUS ONCE IV PUSH Last administered on 07/29at 09:51; Start 07/29/17 at 09:45; Stop 07/29/17 at 09:46; Status DC Sodium Chloride 1,000 ml @ 100 mls/hr Q10H IV Last administered on 07/29/17at 09 :51; Start 07/29/17 at 09:45; Stop 07/29/17 at 17:17; Status DC Diltiazem HCl (Cardizem) 30 mg Q6HR PO Last administered on 07/30/17at 05:28; Start 07/29/17 at 18:00; Stop 07/30/17 at 12:01; Status DC Sodium Chloride 1,000 ml @ 60 mls/hr [id number] ONCE IV Last administered on at 17:25; Start 07/29/17 at 17:15; Stop 07/30/17 at 09:54; Status DC Enoxaparin Sodium (Lovenox Inj) 40 mg Q24H SQ ; Start 07/30/17 at 09:00; Stop 07/30/17 at 09:00; Status DC Gemfibrozil (Lopid) 600 mg BIDAC PO Last administered on 07/30/17at 05:29; Start 07/30/17 at 07:00 Levothyroxine Sodium (Synthroid) 75 mcg DAILY@0600 PO Last administered on at 05:28; Start 07/30/17 at 06:00 Pravastatin Sodium (Pravachol) 40 mg DAILY PO Last administered on 07/30/17at 11: 10; Start 07/30/17 at 09:00 Amiodarone HCl 450 mg/Sodium Chloride 259 ml @ 33 mls/hr [id number] IV Last administered on 07/30/17at 05:25; Start 07/29/17 at 20:00; Stop 07/30/17 at 11:59; Status DC Sodium Chloride (NS Flush) 2 ml UNSCH PRN IVF FLUSH AFTER USING IV ACCESS; Start 07/29/17 at 18:15; Stop 07/30/17 at 13:11; Status DC Amiodarone HCl 150 mg/Dextrose 100 ml @ 100 mls/hr Q1H ONCE IV Last administered on 07/29/17at 20:22; Start 07/29/17 at 18:10; Stop 07/30/17 at 11:59; Status DC Apixaban (Eliquis) 2.5 mg BID PO Last administered on 07/30/17at 11:10; Start 07/29/17 at 21:00 Morphine Sulfate (Morphine Inj) 2 mg ONCE ONCE IV PUSH Last administered on 07/30/17at 00:06; Start 07/29/17 at 23:00; Stop 07/29/17 at 23:01; Status DC Clonidine (Catapres) 0.1 mg ONCE ONCE PO Last administered on 07/30/17at 02:09; Start 07/30/17 at 02:00; Stop 07/30/17 at 02:02; Status DC Amiodarone HCl (Cordarone) 200 mg DAILY PO ; Start 07/30/17 at 12:00 Diltiazem HCl (Cardizem Cd) 240 mg DAILY PO ; Start 07/30/17 at 12:15 Lisinopril (Prinivil) 10 mg DAILY PO ; Start 07/31/17 at 09:00 Hydralazine HCl (Apresoline) 50 mg Q8HR PRN PO SBP>160, DBP>90; Start 07/30/17 at 12:15 Acetaminophen/ Hydrocodone Bitart (Hoffman 5-325 Mg) 1 tab Q6H PRN PO PAIN 2-10 ; Start 07/30/17 at 13:00 Naloxone HCl (Narcan Inj) 0.4 mg UNSCH PRN IV PUSH SEE LABEL COMMENTS; Start at 12:30 Senna/Docusate Sodium (Caridad-Colace) 1 tab BID PO ; Start 07/30/17 at 21:00 Magnesium Hydroxide (Milk Of Magnesia Liq) 30 ml Q12H PRN PO Mild constipation ; Start 07/30/17 at 13:00 Sennosides (Senokot) 17.2 mg Q12H PRN PO Moderate constipation; Start 07/30/17 at 13:00 Bisacodyl (Dulcolax Supp) 10 mg DAILY PRN RECTAL SEVERE CONSITIPATION; Start at 13:00 Lactulose (Lactulose Liq) 30 ml DAILY PRN PO SEVERE CONSITIPATION; Start at 13:00 Sodium Chloride (NS Flush) 2 ml BID IV FLUSH ; Start 07/30/17 at 21:00 Sodium Chloride (NS Flush) 2 ml UNSCH PRN IV FLUSH FLUSH AFTER USING IV ACCESS ; Start 07/30/17 at 13:15 Insulin Aspart (NovoLOG SUPPLEMENTAL SCALE) 1 ACHS SQ ; Start 07/30/17 at 17:00 Dextrose (D50w (Vial) Inj) 50 ml UNSCH PRN IV PUSH HYPOGLYCEMIA-SEE COMMENTS; Start 07/30/17 at 13:15 Glucagon (Glucagon Inj) 1 mg UNSCH PRN OTHER HYPOGLYCEMIA-SEE COMMENTS; Start 07/30/17 at 13:15 Sodium Chloride 1,000 ml @ 84 mls/hr [id number] IV ; Start 07/30/17 at 14:00 Iodixanol (VISIPAQUE 320 INJ (Rad CT)) 75 ml STK-MED ONCE IVCONTRAST Last administered on 07/30/17at 14:28; Start 07/30/17 at 14:28; Stop 07/30/17 at 14:29; Status DC Family History not significant. Social History no smoking or drinking. Objective Vital Signs Date Time Temp Pulse Resp B/P (MAP) Pulse Ox O2 Delivery O2 Flow Rate FiO2 07/30/17 11:00 98.3 82 16 177/77 (110) 96 07/29/17 18:09 Room Air Intake and Output 07/30/17 07/30/17 07/31/17 08:00 16:00 00:00 Intake Total 490 ml Output Total 625 ml Balance -135 ml Result Diagram: 07/30/17 1343 07/30/17 0504 Imaging Last 48 hours Impressions Head CTA 07/30/17 0000 Signed Impressions: Service Date/Time: Sunday, July 30, 2017 13:52 - CONCLUSION: 1. Heavily calcified distal intracranial carotid arteries. 2. No evidence for large vessel occlusion. Holden Bai MD Head CT 07/30/17 Signed Impressions: Service Date/Time: Sunday, July 30, 2017 13:46 - CONCLUSION: 1. Senescent changes with prominent periventricular small vessel ischemic white matter demyelination. 2. No acute intracranial abnormality. oHlden Bai MD Chest X-Ray 07/30/17 Signed Impressions: Service Date/Time: Sunday, July 30, 2017 13:19 - CONCLUSION: 1. Probable left basilar atelectasis. 2. Slight elevation left hemidiaphragm. Deep Aviles MD Thoracic Spine MRI 07/29/17941 Signed Impressions: Service Date/Time: July 10:29 - CONCLUSION: 1. No acute abnormality. 2. Mild diffuse degenerative disc disease without central canal compromise. Tyson Reina Jr., MD Lumbar Spine MRI 07/29/17941 Signed Impressions: Service Date/Time: July 10:29 - CONCLUSION: Multilevel degenerative changes as detailed above. Most pronounced at L2-L3 with significant central canal stenosis. There is a transitional segment at L5. There is a 7.2 x 5.3 cm soft tissue structure within the pelvis partially seen on the final images of the exam. I'm unsure if this relates to the fundus of the uterus or perhaps a soft tissue mass. Consider pelvic sonography to evaluate. Tyson Reina Jr., MD Cervical Spine MRI 07/29/17941 Signed Impressions: Service Date/Time: July 10:29 - CONCLUSION: Multilevel degenerative changes with areas of impression upon the cord no signal change within the cord to suggest edema or myelomalacia. Each level detailed in the above discussion. Tyson Reina Jr., MD Brain MRI 07/29/17941 Signed Impressions: Service Date/Time: July 10:29 - CONCLUSION: 1. No acute intracranial abnormality. 2. Extensive chronic small vessel ischemic change. Tyson Reina Jr., MD Chest X-Ray 07/29/1739 Signed Impressions: Service Date/Time: July 10:05 - CONCLUSION: No acute disease. Varghese Mejia MD Objective Remarks GENERAL: This is a well-nourished, well-developed patient, in no apparent distress. SKIN: No rashes, ecchymoses or lesions. Cool and dry. HEAD: Atraumatic. Normocephalic. No temporal or scalp tenderness. EYES: Pupils equal round and reactive. Extraocular motions intact. No scleral icterus. No injection or drainage. ENT: Nose without bleeding, purulent drainage or septal hematoma. Throat without erythema, tonsillar hypertrophy or exudate. Uvula midline. Airway patent. NECK: Trachea midline. No JVD or lymphadenopathy. Supple, nontender, no meningeal signs. CARDIOVASCULAR: S1S2 irregular rhythm RESPIRATORY: Clear to auscultation. Breath sounds equal bilaterally. No wheezes , rales, or rhonchi. GASTROINTESTINAL: Abdomen soft, non-tender, nondistended. No hepato-splenomegaly , or palpable masses. No guarding. MUSCULOSKELETAL: Extremities without clubbing, cyanosis, or edema. No joint tenderness, effusion, or edema noted. No calf tenderness. Negative Homans sign bilaterally. NEUROLOGICAL: AAO x3. Cranial nerves II through XII intact. lower extremity weakness noted bilaterally. A/P Assessment and Plan 85-year-old female with: Transient altered mental status ? TIA (resolved) A. fib Hypertension Plan: Stroke alert called on the floor. Discussed case with Dr. Morales as well as Dr. Puente. Evaluated patient at bedside following her arrival to the ICU following imaging studies. Head CT negative for bleed. Neuro status back to baseline. Dr. Puente's plan is to start heparin for full anticoagulation and eventually Coumadin. Will go ahead and order heparin for full anticoagulation. Will add clonidine 0.1 mg by mouth every 6 hourly when necessary for SBP greater than 160 mmHg By mouth amiodarone and Cardizem per cardiology. Neurology okay with transferring patient out of ICU if no further episodes of altered mental status. Discussed with Dr. Morales. Patient will be transferred out of ICU tonight if no further episodes of altered mental status. Hospitalist will continue to follow the patient. No critical care issues at this time. Critical care will be signing off, please reconsult if needed Roland Walker MD Jul 30, 2017 15:51
[2017-07-30] MEDS: hydrALAZINE HCL 50 MG TAB PO PRN (16:30)
[2017-07-30] MEDS: HEPARIN-D5W 25,000 U/250 ML 250 ML IV PRN (16:34)
--- NOTE | 2017-07-30 16:40 | RADRPT ---
EXAM DATE/TIME: 07/30/2017 16:22 [facility] COMPARISON: No previous studies available for comparison. INDICATIONS : Pain and swelling of left knee. MEDICAL HISTORY : Hypertension. SURGICAL HISTORY : None. ENCOUNTER: Initial ACUITY: 4 - 6 days PAIN SCORE: 6/10 LOCATION: Left knee FINDINGS: Two view examination of the left knee demonstrates severe osteoarthritis without fracture or dislocat ion. Bony mineralization is under mineralized. Moderate joint effusion. Soft tissue swelling. CONCLUSION: 1. Soft tissue swelling and joint effusion. 2. Severe osteoarthritis. Deep Aviles MD on July 30, 2017 at 16:37 Board Certified Radiologist. This report was verified electronically.
[2017-07-30 16:42] LABS: AUTOMATED NEUTROPHIL # 8.5 TH/MM3 (1.8-7.7); BASOPHIL % 0.1 % (0.0-2.0); EOSINOPHIL # 0.1 TH/MM3 (0-0.4); EOSINOPHIL % 0.5 % (0.0-4.0); HEMATOCRIT 27.4 % (35.0-46.0); HEMOGLOBIN 9.9 GM/DL (11.6-15.3); LYMPH % 6.5 % (9.0-44.0); LYMPHOCYTE # 0.7 TH/MM3 (1.0-4.8); MEAN CORPUSCULAR HEMOGLOBIN 33.1 PG (27.0-34.0); MEAN PLATELET VOLUME 8.6 FL (7.0-11.0); MONO % 12.8 % (0.0-8.0); MONOCYTE # 1.4 TH/MM3 (0-0.9); NEUT % 80.1 % (16.0-70.0); PLATELET COUNT 290 TH/MM3 (150-450); RED BLOOD COUNT 2.98 MIL/MM3 (4.00-5.30); RED CELL DISTRIBUTION WIDTH 14.6 % (11.6-17.2); WHITE BLOOD COUNT 10.6 TH/MM3 (4.0-11.0)
[2017-07-30] MEDS: INSULIN ASPART SUPPLEMENTAL SCALE SQ SCH ×2 (17:00→21:00)
[2017-07-30] MEDS: WARFARIN SOD 2.5 MG TAB PO SCH (17:07)
[2017-07-30 17:11] LABS: ALBUMIN 2.5 GM/DL (3.4-5.0); ALT (GPT) 13 U/L (10-53); AST (GOT) 20 U/L (15-37); BICARBONATE 27.7 MEQ/L (21.0-32.0); BLOOD UREA NITROGEN 25 MG/DL (7-18); CALCIUM 9.7 MG/DL (8.5-10.1); CHLORIDE 100 MEQ/L (98-107); CREATININE 0.83 MG/DL (0.50-1.00); GLOMERULAR FILTRATION RATE 80 ML/MIN (>89); GLUCOSE,RANDOM 106 MG/DL (74-106); SODIUM (NA) 136 MEQ/L (136-145)
[2017-07-30 17:12] LABS: ALKALINE PHOSPHATASE 80 U/L (45-117); TOTAL BILIRUBIN ADULT 0.6 MG/DL (0.2-1.0); TOTAL PROTEIN 7.3 GM/DL (6.4-8.2)
[2017-07-30] MEDS: cloNIDine HCL 0.1 MG TAB PO PRN ×2 (17:17→17:20)
[2017-07-30 17:29] LABS: HEMOGLOBIN A1C 4.9 % (4.3-6.0)
--- NOTE | 2017-07-30 19:41 | MB ---
cc: ADÁN FOSTER M.D. DATE OF CONSULTATION: 07/30/2017. REASON FOR CONSULTATION: Consult requested by Dr. Morales to evaluate for adding tPA for possible stroke. HISTORY OF PRESENT ILLNESS: This is an 85-year-old female. She has a history of hypertension, hypercholesterolemia and hypothyroidism. She came into the emergency room complaining of lower extremity weakness. She was found to have spinal stenosis. Dr. Varela was consulted who recommended conservative management. The patient also was found to have new onset atrial fibrillation with rapid ventricular response. The patient was started on Eliquis 2.5 milligrams last night. The patient around noon-time was found to have altered mental status and was unresponsive. A stroke alert was called in. Dr. Morales wanted hematology consult to see whether the patient could have tPA as patient is on low dose Eliquis. She also had called neurologist, Dr. Puente. Apparently the change in mental status was very brief. The patient now is fully awake, alert and oriented times three. She came back to baseline very rapidly. Therefore, Dr. Puente did not recommend any tPA. It is being thought that the patient possibly had a TIA and now she is on full dose heparin which will be transition into Coumadin. The patient was moved into the ICU where I am seeing the patient with multiple family members. The patient is fully awake, alert and oriented x3. According to the family, the patient is now back to baseline. The rest of the review of systems is negative. PAST MEDICAL HISTORY: 1. Hypertension. 2. Hypercholesterolemia. 3. Hypothyroidism. PAST SURGICAL HISTORY: None. ALLERGIES: None. MEDICATIONS PRIOR TO COMING TO THE HOSPITAL: 1. Enalapril. 2. Bumex. 3. Pravastatin. 4. Fish oil. 5. Gemfibrozil. 6. Levothyroxine. 7. Labetalol. FAMILY HISTORY: No family history of blood clots. SOCIAL HISTORY: The patient does not smoke cigarettes, does not drink alcohol. PHYSICAL EXAMINATION: GENERAL: This is a well-developed elderly white -[place] female in no apparent distress. VITAL SIGNS: Temperature 98.3, heart rate is 82, blood pressure is 177/77. HEAD, EYES, EARS, NOSE, THROAT: Pupils equal, round and reactive to light and accommodation. Extraocular muscles intact. Anicteric. No oral lesions are noted. NECK: No lymphadenopathy noted. LUNGS: Clear. No wheezes, rales or rhonchi. HEART: Regular rate and rhythm. ABDOMEN: Abdomen soft and nontender. No hepatosplenomegaly. EXTREMITIES: No pedal edema. NEUROLOGIC: Awake, alert, oriented times three. SKIN: No significant lesions noted. ASSESSMENT: 1. Change in mental status most likely due to TIA. Workup is in progress and ordered by the neurologist. 2. New-onset atrial fibrillation with rapid ventricular response. 3. Spinal stenosis with weakness of the lower legs. PLAN: I have reviewed her available records and I have discussed with the patient and multiple family members regarding her acute change in mental status, which was of brief duration. She is now back to her baseline. It is unclear what had happened but clinically it is suspicious that she may have had a TIA. Given that she has fully recovered, Dr. Puente, neurologist did not recommend any tPA. He has started her on full dose heparin which will be transitioned to Coumadin. The patient will be closely monitored in the intensive care unit. If there are no further neurological event, then the patient will be transferred back to the regular floor. Thank you for asking my opinion. MD MEG Thakkar/LATRELL /6:49 PM /7:22 PM [facility]ARREN
[2017-07-30] MEDS: SODIUM CHLORIDE 0.9% FLUSH 10 ML FLUSH IV FLUSH SCH (21:00)
[2017-07-30] MEDS: DOCUSATE SODIUM 50 MG/SENNA 8.6 MG TAB PO SCH (21:08)
[2017-07-30] MEDS: ACETAMINOPHEN/HYDROcodone 325 MG/5 MG TAB PO PRN (21:54)
[2017-07-31] VITALS (14 sets, daily range): BP systolic 141–173; BP diastolic 65–89; PULSE 70–90; RESP 17–24; TEMP 98.1–99.3; O2SAT 97–100
[2017-07-31] MEDS: SODIUM CHLOR 0.9% 1000 ML INJ 1,000 ML IV SCH ×2 (01:55→08:00)
[2017-07-31 04:44] LABS: AUTOMATED NEUTROPHIL # 6.6 TH/MM3 (1.8-7.7); BASOPHIL % 0.6 % (0.0-2.0); EOSINOPHIL # 0.1 TH/MM3 (0-0.4); EOSINOPHIL % 0.7 % (0.0-4.0); HEMATOCRIT 27.9 % (35.0-46.0); HEMOGLOBIN 9.3 GM/DL (11.6-15.3); LYMPH % 6.9 % (9.0-44.0); LYMPHOCYTE # 0.6 TH/MM3 (1.0-4.8); MEAN CELL VOLUME 92.1 FL (80.0-100.0); MEAN CORPUSCULAR HEMOGLOBIN 30.9 PG (27.0-34.0); MEAN CORPUSCULAR HGB CONC 33.5 % (32.0-36.0); MEAN PLATELET VOLUME 8.4 FL (7.0-11.0); MONO % 13.1 % (0.0-8.0); MONOCYTE # 1.1 TH/MM3 (0-0.9); NEUT % 78.7 % (16.0-70.0); PLATELET COUNT 295 TH/MM3 (150-450); RED BLOOD COUNT 3.02 MIL/MM3 (4.00-5.30); RED CELL DISTRIBUTION WIDTH 14.7 % (11.6-17.2); WHITE BLOOD COUNT 8.4 TH/MM3 (4.0-11.0)
[2017-07-31] MEDS: cloNIDine HCL 0.1 MG TAB PO PRN (04:46)
[2017-07-31 05:07] LABS: PROTHROMBIN TIME - PATIENT 10.4 SEC (9.8-11.6)
[2017-07-31 05:11] LABS: BICARBONATE 25.2 MEQ/L (21.0-32.0); CALCIUM 9.3 MG/DL (8.5-10.1); CREATININE 0.94 MG/DL (0.50-1.00)
[2017-07-31 05:15] LABS: CHOLESTEROL/ HDL RATIO 2.44 RATIO; HDL CHOLESTEROL 48.7 MG/DL (40.0-60.0)
[2017-07-31] MEDS: GEMFIBROZIL 600 MG TAB PO SCH ×2 (05:44→17:23)
[2017-07-31] MEDS: LEVOTHYROXINE SODIUM 75 MCG TAB PO SCH (05:44)
[2017-07-31] MEDS: INSULIN ASPART SUPPLEMENTAL SCALE SQ SCH ×4 (08:00→20:31)
[2017-07-31] MEDS: SODIUM CHLORIDE 0.9% FLUSH 10 ML FLUSH IV FLUSH SCH ×2 (09:16→20:32)
[2017-07-31] MEDS: DOCUSATE SODIUM 50 MG/SENNA 8.6 MG TAB PO SCH ×2 (09:16→20:31)
[2017-07-31] MEDS: AMIODARONE 200 MG TAB PO SCH (09:16)
[2017-07-31] MEDS: LISINOPRIL 10 MG TAB PO SCH (09:16)
[2017-07-31] MEDS: PRAVASTATIN SOD 40 MG TAB PO SCH (09:16)
[2017-07-31] MEDS: DILTIAZEM-CD 240 MG CAP ER PO SCH (09:16)
--- NOTE | 2017-07-31 10:48 | HHI.PR ---
Review/Management Diagnosis/Plan: (1) Lower extremity weakness ICD Codes: R29.898 - Other symptoms and signs involving the musculoskeletal system Status: Acute Plan: MRIs reviewed, NAICP, Lumbar central canal stenosis elevated esr/crp. pmr a possibility recs trial of iv solumedrol f/u esr/crp d/w pt/family/ccm/rn ok for floor with tele (2) TIA (transient ischemic attack) ICD Codes: G45.9 - Transient cerebral ischemic attack, unspecified Status: Acute Plan: possible on hep gtt/coumadin ok for floor (3) Atrial fibrillation with RVR ICD Codes: I48.91 - Unspecified atrial fibrillation Status: Acute Plan: Per Cardiology Started on Eliquis for stroke prophy Cardizem drip (4) Lumbar canal stenosis ICD Codes: M48.061 - Spinal stenosis, lumbar region without neurogenic claudication Plan: MRIs reviewed with central canal stenosis L2-L3 Subjective Subjective Comments No acute events reported pain in thighs and feet No headache No chest pain No dyspnea Active Medications Current Medications Medications (Trade) Dose Ordered Sig/Stu Route Start Time Stop Time Status Last Admin (Lopid) 600 mg BIDAC PO 07/30/17 07:00 07/31/17 05:44 (Synthroid) 75 mcg DAILY@0600 PO 07/30/17 06:00 07/31/17 05:44 (Pravachol) 40 mg DAILY PO 07/30/17 09:00 07/31/17 09:16 (Cordarone) 200 mg DAILY PO 07/30/17 12:00 07/31/17 09:16 (Cardizem Cd) 240 mg DAILY PO 07/30/17 12:15 07/31/17 09:16 (Prinivil) 10 mg DAILY PO 07/31/17 09:00 07/31/17 09:16 (Apresoline) 50 mg Q8HR PRN PO 07/30/17 12:15 07/30/17 16:30 (Mayflower 5-325 Mg) 1 tab Q6H PRN PO 07/30/17 13:00 07/30/17 21:54 (Narcan Inj) 0.4 mg UNSCH PRN IV PUSH 07/30/17 12:30 (Caridad-Colace) 1 tab BID PO 07/30/17 21:00 07/31/17 09:16 (Milk Of Magnesia Liq) 30 ml Q12H PRN PO 07/30/17 13:00 (Senokot) 17.2 mg Q12H PRN PO 07/30/17 13:00 (Dulcolax Supp) 10 mg DAILY PRN RECTAL 07/30/17 13:00 (Lactulose Liq) 30 ml DAILY PRN PO 07/30/17 13:00 (NS Flush) 2 ml BID IV FLUSH 07/30/17 21:00 07/31/17 09:16 (NS Flush) 2 ml UNSCH PRN IV FLUSH 07/30/17 13:15 (NovoLOG SUPPLEMENTAL SCALE) 1 ACHS SQ 07/30/17 17:00 (D50w (Vial) Inj) 50 ml UNSCH PRN IV PUSH 07/30/17 13:15 (Glucagon Inj) 1 mg UNSCH PRN OTHER 07/30/17 13:15 Pharmacy Profile Note 0 ml @ 0 mls/hr UNSCH OTHER 07/30/17 15:45 Heparin Sodium/ Dextrose 250 ml @ 10 mls/hr TITRATE PRN IV 07/30/17 16:00 07/30/17 16:34 (Catapres) 0.1 mg Q6H PRN PO 07/30/17 16:00 07/31/17 04:46 (Coumadin) 2.5 mg DAILY@1600 PO 07/30/17 16:30 07/30/17 17:07 Sodium Chloride 1,000 ml @ 70 mls/hr [id number] IV 07/31/17 08:00 07/31/17 08:00 Allergies Allergies Coded Allergies No Known Allergies (Verified Allergy, Unknown, 07/29/17) Review of Systems Constitutional: Negative except HPI Eye: Negative Except HPI ENMT: Negative except HPI Respiratory: Negative except HPI Cardiovascular: Negative except HPI Gastrointestinal: Negative except HPI Ajit/Lymph: Negative except HPI Musculoskeletal: Back pain, Muscle pain Neurologic: Negative except HPI Psychiatric: Negative except HPI All other ROS: Negative, ROS reviewed as documented in chart Exam I&O / VS 07/31/17 07/31/17 08/01/17 15:00 23:00 07:00 Intake Total 150 ml Balance 150 ml IV Total 150 ml Vital Signs Date Time Temp Pulse Resp B/P (MAP) Pulse Ox O2 Delivery O2 Flow Rate FiO2 07/31/17 09:02 99 21 07/31/17 06:00 71 07/31/17 04:00 98.4 89 24 173/81 (111) 100 07/31/17 04:00 89 07/31/17 02:00 75 07/31/17 00:00 76 07/31/17 00:00 99.3 76 22 146/65 (92) 97 07/30/17 22:00 80 07/30/17 20:08 99 21 07/30/17 20:00 98.8 104 24 131/76 (94) 99 07/30/17 19:33 120 07/30/17 18:00 106 07/30/17 16:00 100 07/30/17 16:00 98.2 100 28 184/89 (120) 98 07/30/17 15:08 92 07/30/17 14:42 98 07/30/17 14:35 103 28 184/94 (124) 97 07/30/17 11:00 98.3 82 16 177/77 (110) 96 07/30/17 11:00 92 General: Alert and Oriented, No acute distress Eye: PERRL, EOMI Respiratory: Non-labored respirations, Symmetrical expansion Cardiology: Irregular Rhythm Musculoskeletal: Tenderness (knees and both hips), Swelling (several apparent lipomas, left knee mild swelling as well) Neurologic: Alert, Oriented, CN II-XII intact Psychiatric: Appropriate mood & affect, Other (cooperative at times, but gives variable effort due to pain) Exam Comments alert, o x 2, follows, eomi, vf, face sym, left distal hand weak finger flexors - chronic per pt, mild le weakness 2/2 pain, pain with foot passive rom ankur to raise hazel le off bed Objective Micro and Labs Laboratory Tests Test 07/30/17 11:35 07/30/17 13:43 07/30/17 16:10 07/30/17 22:12 Erythrocyte Sedimentation Rate GREATER THAN 140 Total Creatine Kinase 68 69 C-Reactive Protein 35.00 Vitamin B12 Level 825 White Blood Count 10.3 10.6 Red Blood Count 3.26 2.98 Hemoglobin 10.2 9.9 Bedside Hemoglobin 9.9 Hematocrit 30.2 27.4 Bedside Hematocrit 29.0 Mean Corpuscular Volume 92.8 92.0 Mean Corpuscular Hemoglobin 31.2 33.1 Mean Corpuscular Hemoglobin Concent 33.6 36.0 Red Cell Distribution Width 14.7 14.6 Platelet Count 253 290 Mean Platelet Volume 9.6 8.6 Neutrophils (%) (Auto) 79.0 80.1 Lymphocytes (%) (Auto) 7.8 6.5 Monocytes (%) (Auto) 12.3 12.8 Eosinophils (%) (Auto) 0.4 0.5 Basophils (%) (Auto) 0.5 0.1 Neutrophils # (Auto) 8.1 8.5 Lymphocytes # (Auto) 0.8 0.7 Monocytes # (Auto) 1.3 1.4 Eosinophils # (Auto) 0.0 0.1 Basophils # (Auto) 0.0 0.0 CBC Comment DIFF FINAL AUTO DIFF Differential Comment AUTO DIFF CONFIRMED Prothrombin Time 10.2 Prothromb Time International Ratio 1.0 Activated Partial Thromboplast Time 35.7 35.0 Fibrinogen GREATER THAN 860 Bedside Sodium 137 Bedside Potassium 3.8 Bedside Chloride 101 Bedside Blood Urea Nitrogen 25 Bedside Creatinine 0.9 Bedside Glucose 110 Troponin I LESS THAN 0.02 Blood Urea Nitrogen 25 Creatinine 0.83 Random Glucose 106 Total Protein 7.3 Albumin 2.5 Calcium Level 9.7 Alkaline Phosphatase 80 Aspartate Amino Transf (AST/SGOT) 20 Alanine Aminotransferase (ALT/SGPT) 13 Total Bilirubin 0.6 Sodium Level 136 Potassium Level 3.6 Chloride Level 100 Carbon Dioxide Level 27.7 Anion Gap 8 Estimat Glomerular Filtration Rate 80 Hemoglobin A1c 4.9 Lactic Acid Level 1.0 Ammonia LESS THAN 10 Test 07/31/17 04:32 White Blood Count 8.4 Red Blood Count 3.02 Hemoglobin 9.3 Hematocrit 27.9 Mean Corpuscular Volume 92.1 Mean Corpuscular Hemoglobin 30.9 Mean Corpuscular Hemoglobin Concent 33.5 Red Cell Distribution Width 14.7 Platelet Count 295 Mean Platelet Volume 8.4 Neutrophils (%) (Auto) 78.7 Lymphocytes (%) (Auto) 6.9 Monocytes (%) (Auto) 13.1 Eosinophils (%) (Auto) 0.7 Basophils (%) (Auto) 0.6 Neutrophils # (Auto) 6.6 Lymphocytes # (Auto) 0.6 Monocytes # (Auto) 1.1 Eosinophils # (Auto) 0.1 Basophils # (Auto) 0.0 CBC Comment DIFF FINAL Differential Comment Prothrombin Time 10.4 Prothromb Time International Ratio 1.0 Activated Partial Thromboplast Time 35.8 Blood Urea Nitrogen 25 Creatinine 0.94 Random Glucose 112 Calcium Level 9.3 Sodium Level 138 Potassium Level 3.5 Chloride Level 104 Carbon Dioxide Level 25.2 Anion Gap 9 Estimat Glomerular Filtration Rate 69 Triglycerides Level 63 Cholesterol Level 119 LDL Cholesterol 58 HDL Cholesterol 48.7 Cholesterol/HDL Ratio 2.44 Problem Qualifiers (1) Lower extremity weakness: Qualified Codes: R29.898 - Other symptoms and signs involving the musculoskeletal system (2) TIA (transient ischemic attack): Qualified Codes: G45.1 - Carotid artery syndrome (hemispheric) Stu Puente MD Jul 31, 2017 10:48
--- NOTE | 2017-07-31 12:05 | HHI.NSPN ---
Note Status Status: Progress Note Interval History Interval History This is a 85 y/o female with history of hypertension, dyslipidemia, hypothyroidism admitted to the hospital for lower extremity weakness. She usually walks with a walker at her baseline over the past 6 months, but the morning of admission was unable to ambulate or move her legs. She denies any antecedent trauma, but her daughter in the room states that the patient may have fallen inise her closet recently. Pt denies any bowel/bladder retention or incontinence or saddle anesthesia. She denies any fevers, chills, night sweats, or early satiety. Apparently she came into the emergency room complaining of lower extremity weakness. She was found to have spinal stenosis. neurosurgical consultation was requested. She underwent a cardiology workup and was found to have new onset atrial fibrillation with rapid ventricular response. The patient was started on Eliquis 2.5 milligrams last night. The patient around noon-time was found to have altered mental status and was unresponsive. A stroke alert was called in. Dr. Morales wanted hematology consult to see whether the patient could have tPA as patient is on low dose Eliquis. Apparently the change in mental status was very brief. She subsequently developed weakness in her left upper extremity. She came back to baseline very rapidly.Therefore, Dr. Puente did not recommend any tPA. It is being thought that the patient possibly had a TIA and now she is on full dose heparin which will be transition into Coumadin. The patient was transfered into the ICU 07/31. Today she feels that her left upper extremity is now weaker Labs, Micro, & Vital Signs Results Date Time Temp Pulse Resp B/P (MAP) Pulse Ox O2 Delivery O2 Flow Rate FiO2 07/31/17 09:02 99 21 07/31/17 06:00 71 07/31/17 04:00 98.4 89 24 173/81 (111) 100 07/31/17 04:00 89 07/31/17 02:00 75 07/31/17 00:00 76 07/31/17 00:00 99.3 76 22 146/65 (92) 97 07/30/17 22:00 80 07/30/17 20:08 99 21 07/30/17 20:00 98.8 104 24 131/76 (94) 99 07/30/17 19:33 120 07/30/17 18:00 106 07/30/17 16:00 100 07/30/17 16:00 98.2 100 28 184/89 (120) 98 07/30/17 15:08 92 07/30/17 14:42 98 07/30/17 14:35 103 28 184/94 (124) 97 08/01/17 06:59 Intake Total 150 ml Balance 150 ml Constitutional Vital Signs Date Time Temp Pulse Resp B/P (MAP) Pulse Ox O2 Delivery O2 Flow Rate FiO2 07/31/17 09:02 99 21 07/31/17 06:00 71 07/31/17 04:00 98.4 89 24 173/81 (111) 100 07/31/17 04:00 89 07/31/17 02:00 75 07/31/17 00:00 76 07/31/17 00:00 99.3 76 22 146/65 (92) 97 07/30/17 22:00 80 07/30/17 20:08 99 21 07/30/17 20:00 98.8 104 24 131/76 (94) 99 07/30/17 19:33 120 07/30/17 18:00 106 07/30/17 16:00 100 07/30/17 16:00 98.2 100 28 184/89 (120) 98 07/30/17 15:08 92 07/30/17 14:42 98 07/30/17 14:35 103 28 184/94 (124) 97 08/01/17 06:59 Intake Total 150 ml Balance 150 ml Review of Systems Constitutional: DENIES: Diaphoretic episodes, Fatigue, Fever, Weight gain, Weight loss, Chills, Dizziness, Change in appetite, Night Sweats Endocrine: DENIES: Abnorml menstrual pattern, Heat/cold intolerance, Polydipsia , Polyuria, Polyphagia Eyes: DENIES: Blurred vision, Diplopia, Eye inflammation, Eye pain, Vision loss , Photosensitivity, Double Vision Ears, nose, mouth, throat: DENIES: Tinnitus, Hearing loss, Vertigo, Nasal discharge, Oral lesions, Throat pain, Hoarseness, Ear Pain, Running Nose, Epistaxis, Sinus Pain, Toothache, Odynophagia Respiratory: DENIES: Apneas, Cough, Snoring, Wheezing, Hemoptysis, Sputum production, Shortness of breath Cardiovascular: DENIES: Chest pain, Palpitations, Syncope, Dyspnea on Exertion , PND, Lower Extremity Edema, Orthopnea, Claudication Gastrointestinal: DENIES: Abdominal pain, Black stools, Bloody stools, Constipation, Diarrhea, Nausea, Vomiting, Difficulty Swallowing, Anorexia Genitourinary: DENIES: Abnormal vaginal bleeding, Dysmenorrhea, Dyspareunia, Sexual dysfunction, Urinary frequency, Urinary incontinence, Urgency, Hematuria , Dysuria, Nocturia, Vaginal discharge Musculoskeletal: COMPLAINS OF: Back pain, DENIES: Joint pain, Muscle aches, Stiffness, Joint Swelling, Neck pain Integumentary: DENIES: Abnormal pigmentation, Pruritus, Rash, Nail changes, Breast masses, Breast skin changes, Nipple discharge Hematologic/lymphatic: DENIES: Bruising, Lymphadenopathy Immunologic/allergic: DENIES: Eczema, Urticaria Neurologic: COMPLAINS OF: Abnormal gait, Localized weakness, Paresthesias, DENIES: Headache, Seizures, Speech Problems, Tremor, Poor Balance Psychiatric: COMPLAINS OF: Anxiety, Confusion, DENIES: Mood changes, Depression , Hallucinations, Agitation, Suicidal Ideation, Homicidal Ideation, Delusions Physical Exam Ms More is alert, awake and oriented to time, place and person. Speech is fluent. Cranial nerve examination: pupils to be equal, round and reactive to light. Extra-ocular movements are intact. Facial motor and sensory function are normal and symmetrical. Gross hearing appears intact. Sternocleidomastoid and trapezius muscles are symmetrical. Other cranial nerves are intact. Neck is soft and supple with a decreased range of motion Muscle strength is normal in all muscle groups of her right upper extremitie. 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 Deep tendon reflexes are symmetrical in both upper extremities, trace in her knees and ankles. There is a bilateral plantar flexion response. Cerebellar examination is very limited due to her condition Lungs: clear, nonlabored breathing, no wheezing Heart: S1, S2, regular rhythm and rate Skin: warm and dry, no cyanosis. Medical Decision Making MDM Remarks Last 48 hours Impressions Neck CTA 07/30/17 0000 Signed Impressions: Service Date/Time: Sunday, July 30, 2017 13:52 - CONCLUSION: 1. Patent carotid arteries. 2. 50-60%% stenoses involving both vertebral arteries. Tyson Reina Jr., MD Knee X-Ray 07/30/17 0000 Signed Impressions: Service Date/Time: Sunday, July 30, 2017 16:22 - CONCLUSION: 1. Soft tissue swelling and joint effusion. 2. Severe osteoarthritis. Deep Aviles MD Head CTA 07/30/17 0000 Signed Impressions: Service Date/Time: Sunday, July 30, 2017 13:52 - CONCLUSION: 1. Heavily calcified distal intracranial carotid arteries. 2. No evidence for large vessel occlusion. Holden Bai MD Head CT 07/30/17 0000 Signed Impressions: Service Date/Time: Sunday, July 30, 2017 13:46 - CONCLUSION: 1. Senescent changes with prominent periventricular small vessel ischemic white matter demyelination. 2. No acute intracranial abnormality. Holden Bai MD Chest X-Ray 07/30/17 0000 Signed Impressions: Service Date/Time: Sunday, July 30, 2017 13:19 - CONCLUSION: 1. Probable left basilar atelectasis. 2. Slight elevation left hemidiaphragm. Deep Aviles MD Attending Statement Neuro. continue neuro checks. I do not think she suffered a stroke,. Again, I do not think her deficits are related to her lumbar stenosis. EEG today. She may need an LP to rule out Marcelle [place] Syndrome or another neurological condition such as myelities, however she was started on Eliquis, and now may need to wait I do not think her spinal stenosis is related to the weakness in her left upper extremity recommend physical therapy. Surgery should be a last resort, however, can not use anticoagulation if surgical procedure is to be considered. Recommend. consult to car spotter for management of atrial fibrillation Physical therapy assessment and daily PT Pulmonary.. Continue aggressive pulmonary toilette, nasotracheal suction, and breathing treatments with nebulizers. Nutrition. NPO Renal. monitor closely urine output, BUN and creatinine Endocrine. Monitor serial Acu checks and SSI as needed in detail ID monitor for signs of infection Protonix for stress ulcer prophylaxis Nikhil hose and SCD's for DVT prophylaxis. Pravin Varela MD Jul 31, 2017 12:05
[2017-07-31] MEDS: methylPREDNISolone SOD SUCC 125 MG/2 ML VIAL IV PUSH SCH ×2 (12:35→20:31)
[2017-07-31] MEDS: ACETAMINOPHEN/HYDROcodone 325 MG/5 MG TAB PO PRN (12:35)
--- NOTE | 2017-07-31 13:14 | PD.ONC.PN ---
Subjective Subjective Remarks Afebrile overnight. Patient resting in bed with son and at bedside. She continues to have difficulty moving her legs and left arm. tolerating heparin gtt. no bleeding. Objective Data Date Time Temp Pulse Resp B/P (MAP) Pulse Ox O2 Delivery O2 Flow Rate FiO2 07/31/17 09:02 99 21 07/31/17 06:00 71 07/31/17 04:00 98.4 89 24 173/81 (111) 100 07/31/17 04:00 89 07/31/17 02:00 75 07/31/17 00:00 76 07/31/17 00:00 99.3 76 22 146/65 (92) 97 07/30/17 22:00 80 07/30/17 20:08 99 21 07/30/17 20:00 98.8 104 24 131/76 (94) 99 07/30/17 19:33 120 07/30/17 18:00 106 07/30/17 16:00 100 07/30/17 16:00 98.2 100 28 184/89 (120) 98 07/30/17 15:08 92 07/30/17 14:42 98 07/30/17 14:35 103 28 184/94 (124) 97 07/31/17 07/31/17 07/31/17 07:00 15:00 23:00 Intake Total 1422 ml 150 ml Output Total 500 ml Balance 922 ml 150 ml Result Diagram: 07/31/17 0432 07/31/17 0432 Laboratory Results Laboratory Tests Test 07/30/17 13:43 07/30/17 16:10 07/30/17 22:12 07/31/17 04:32 White Blood Count 10.3 TH/MM3 10.6 TH/MM3 8.4 TH/MM3 Red Blood Count 3.26 MIL/MM3 2.98 MIL/MM3 3.02 MIL/MM3 Hemoglobin 10.2 GM/DL 9.9 GM/DL 9.3 GM/DL Bedside Hemoglobin 9.9 G/DL Hematocrit 30.2 % 27.4 % 27.9 % Bedside Hematocrit 29.0 % Mean Corpuscular Volume 92.8 FL 92.0 FL 92.1 FL Mean Corpuscular Hemoglobin 31.2 PG 33.1 PG 30.9 PG Mean Corpuscular Hemoglobin Concent 33.6 % 36.0 % 33.5 % Red Cell Distribution Width 14.7 % 14.6 % 14.7 % Platelet Count 253 TH/MM3 290 TH/MM3 295 TH/MM3 Mean Platelet Volume 9.6 FL 8.6 FL 8.4 FL Neutrophils (%) (Auto) 79.0 % 80.1 % 78.7 % Lymphocytes (%) (Auto) 7.8 % 6.5 % 6.9 % Monocytes (%) (Auto) 12.3 % 12.8 % 13.1 % Eosinophils (%) (Auto) 0.4 % 0.5 % 0.7 % Basophils (%) (Auto) 0.5 % 0.1 % 0.6 % Neutrophils # (Auto) 8.1 TH/MM3 8.5 TH/MM3 6.6 TH/MM3 Lymphocytes # (Auto) 0.8 TH/MM3 0.7 TH/MM3 0.6 TH/MM3 Monocytes # (Auto) 1.3 TH/MM3 1.4 TH/MM3 1.1 TH/MM3 Eosinophils # (Auto) 0.0 TH/MM3 0.1 TH/MM3 0.1 TH/MM3 Basophils # (Auto) 0.0 TH/MM3 0.0 TH/MM3 0.0 TH/MM3 CBC Comment DIFF FINAL AUTO DIFF DIFF FINAL Differential Comment AUTO DIFF CONFIRMED Prothrombin Time 10.2 SEC 10.4 SEC Prothromb Time International Ratio 1.0 RATIO 1.0 RATIO Activated Partial Thromboplast Time 35.7 SEC 35.0 SEC 35.8 SEC Fibrinogen GREATER THAN 860 mg/dL Bedside Sodium 137 MMOL/L Bedside Potassium 3.8 MMOL/L Bedside Chloride 101 MMOL/L Bedside Blood Urea Nitrogen 25 MG/DL Bedside Creatinine 0.9 MG/DL Bedside Glucose 110 MG/DL Total Creatine Kinase 69 U/L Troponin I LESS THAN 0.02 NG/ML Blood Urea Nitrogen 25 MG/DL 25 MG/DL Creatinine 0.83 MG/DL 0.94 MG/DL Random Glucose 106 MG/DL 112 MG/DL Total Protein 7.3 GM/DL Albumin 2.5 GM/DL Calcium Level 9.7 MG/DL 9.3 MG/DL Alkaline Phosphatase 80 U/L Aspartate Amino Transf (AST/SGOT) 20 U/L Alanine Aminotransferase (ALT/SGPT) 13 U/L Total Bilirubin 0.6 MG/DL Sodium Level 136 MEQ/L 138 MEQ/L Potassium Level 3.6 MEQ/L 3.5 MEQ/L Chloride Level 100 MEQ/L 104 MEQ/L Carbon Dioxide Level 27.7 MEQ/L 25.2 MEQ/L Anion Gap 8 MEQ/L 9 MEQ/L Estimat Glomerular Filtration Rate 80 ML/MIN 69 ML/MIN Hemoglobin A1c 4.9 % Lactic Acid Level 1.0 mmol/L Ammonia LESS THAN 10 MCMOL/L Triglycerides Level 63 MG/DL Cholesterol Level 119 MG/DL LDL Cholesterol 58 MG/DL HDL Cholesterol 48.7 MG/DL Cholesterol/HDL Ratio 2.44 RATIO Administered Medications Medications (Trade) Dose Ordered Sig/Stu Route PRN Reason Start Time Stop Time Status Last Admin Dose Admin Gemfibrozil (Lopid) 600 mg BIDAC PO 07/30/17 07:00 07/31/17 05:44 Levothyroxine Sodium (Synthroid) 75 mcg DAILY@0600 PO 07/30/17 06:00 07/31/17 05:44 Pravastatin Sodium (Pravachol) 40 mg DAILY PO 07/30/17 09:00 07/31/17 09:16 Amiodarone HCl (Cordarone) 200 mg DAILY PO 07/30/17 12:00 07/31/17 09:16 Diltiazem HCl (Cardizem Cd) 240 mg DAILY PO 07/30/17 12:15 07/31/17 09:16 Lisinopril (Prinivil) 10 mg DAILY PO 07/31/17 09:00 07/31/17 09:16 Hydralazine HCl (Apresoline) 50 mg Q8HR PRN PO SBP>160, DBP>90 07/30/17 12:15 07/30/17 16:30 Acetaminophen/ Hydrocodone Bitart (Theresa 5-325 Mg) 1 tab Q6H PRN PO PAIN 2-10 07/30/17 13:00 07/31/17 12:35 Senna/Docusate Sodium (Caridad-Colace) 1 tab BID PO 07/30/17 21:00 07/31/17 09:16 Sodium Chloride (NS Flush) 2 ml BID IV FLUSH 07/30/17 21:00 07/31/17 09:16 Heparin Sodium/ Dextrose 250 ml @ 10 mls/hr TITRATE PRN IV Coagulation Management 07/30/17 16:00 07/30/17 16:34 Clonidine (Catapres) 0.1 mg Q6H PRN PO SBP greater than 160mm Hg 07/30/17 16:00 07/31/17 04:46 Warfarin Sodium (Coumadin) 2.5 mg DAILY@1600 PO 07/30/17 16:30 07/30/17 17:07 Sodium Chloride 1,000 ml @ 70 mls/hr [id number] IV 07/31/17 08:00 07/31/17 08:00 Methylprednisolone Sodium Succinate (SoluMEDROL INJ) 125 mg Q12HR IV PUSH 07/31/17 10:45 08/01/17 21:00 07/31/17 12:35 Objective Remarks GENERAL: pleasant elderly female, sitting up in bed in nad. SKIN: Warm and dry. HEAD: Normocephalic. EYES: No injection or drainage. NECK: Supple, trachea midline. CARDIOVASCULAR: Regular rate and rhythm RESPIRATORY: Breath sounds equal bilaterally. No accessory muscle use. GASTROINTESTINAL: Abdomen soft, non-tender, nondistended. EXTREMITIES: No cyanosis NEUROLOGICAL: awake, alert, normal speech. facial movements symmetric. unable to move legs, left arm weakness, especially distally, unable to make fist with left hand. Assessment/Plan Problem List: (1) Atrial fibrillation with RVR ICD Codes: I48.91 - Unspecified atrial fibrillation Status: Acute Plan: 07/31: continue heparin gtt. monitor PTT, hgb --on heparin gtt. (2) Lower extremity weakness ICD Codes: R29.898 - Other symptoms and signs involving the musculoskeletal system Status: Acute Plan: --neurology following and patient on steroids for possible polymyalgia rheumatica --NS also following for spinal stenosis. (3) TIA (transient ischemic attack) ICD Codes: G45.9 - Transient cerebral ischemic attack, unspecified Status: Acute (4) Normocytic anemia ICD Codes: D64.9 - Anemia, unspecified Plan: --check stool Hemoccult + vitamin studies Assessment 85y/o female admitted with lower extremity weakness, new onset atrial fibrillation. Hematology consulted for anticoagulation recommendations history of hypertension, hypercholesterolemia and hypothyroidism. Attending Statement The exam, history, and the medical decision-making described in the above note were completed with the assistance of the mid-level provider. I reviewed and agree with the findings presented. I attest that I had a [id number] encounter with the patient on the same day, and personally performed and documented my assessment and findings in the medical record. No new complaints No more change in mental status Patient is on heparin and tolerating it well. Anticoagulation her neurology And admitting physicia I'm will sign off on the case and will be available as needed Problem Qualifiers (1) Lower extremity weakness: Qualified Codes: R29.898 - Other symptoms and signs involving the musculoskeletal system (2) TIA (transient ischemic attack): Qualified Codes: G45.1 - Carotid artery syndrome (hemispheric) Nupur Grady Jul 31, 2017 13:13 Guerita Hutrado MD Jul 31, 2017 23:12
--- NOTE | 2017-07-31 14:12 | EKG ---
Date Performed: 07/30/2017 Time Performed: 13:13:58 PTAGE: 82 years EKG: Sinus rhythm with PAC(s). Poor R wave progression - probable normal variant Inferior T wave changes are nonspecif ic When compared to previous tracing, rhythm has changed from What appears to be atrial flutter to to sinus rhythm. ST-T changes have improved. Borderline ECG PREVIOUS TRACING : 07/29/2017 09.22 DOCTOR: Buddy Field Interpretating Date/Time 07/31/2017 14:11:16
[2017-07-31 14:21] LABS: RETIC # 33.6 MIL/L (20.0-150.0); RETIC % 1.2 % (0.4-3.0)
[2017-07-31 16:05] LABS: % SATURATION IRON PROFILE 8.2 % (20-50); IRON (FE) 13 MCG/DL (50-170); TOTAL IRON BINDING CAPACITY 158 MCG/DL (250-450)
[2017-07-31 16:07] LABS: FERRITIN 352 NG/ML (8-252)
[2017-07-31] MEDS: WARFARIN SOD 2.5 MG TAB PO SCH (17:22)
[2017-07-31] MEDS: HEPARIN-D5W 25,000 U/250 ML 250 ML IV PRN (17:24)
--- NOTE | 2017-07-31 18:09 | HHI.PR ---
Subjective Remarks Patient resting in bed Still having some difficulty moving her extremity On heparin drip Uneventful night Objective Vitals Vital Signs Date Time Temp Pulse Resp B/P (MAP) Pulse Ox O2 Delivery O2 Flow Rate FiO2 07/31/17 12:00 98.4 87 23 143/75 (97) 99 07/31/17 12:00 87 07/31/17 10:00 90 07/31/17 09:02 99 21 07/31/17 08:00 76 07/31/17 08:00 98.6 76 20 167/89 (115) 98 07/31/17 06:00 71 07/31/17 04:00 98.4 89 24 173/81 (111) 100 07/31/17 04:00 89 07/31/17 02:00 75 07/31/17 00:00 76 07/31/17 00:00 99.3 76 22 146/65 (92) 97 07/30/17 22:00 80 07/30/17 20:08 99 21 07/30/17 20:00 98.8 104 24 131/76 (94) 99 07/30/17 19:33 120 I/O 07/30/17 07/30/17 07/30/17 07/31/17 07/31/17 07/31/17 07:00 15:00 23:00 07:00 15:00 23:00 Intake Total 490 ml 216 ml 1422 ml 150 ml Output Total 625 ml 1 ml 500 ml Balance -135 ml 215 ml 922 ml 150 ml Intake Oral 240 ml 480 ml IV Total 250 ml 216 ml 942 ml 150 ml Output Urine Total 625 ml 0 ml 500 ml Stool Total 0 ml 1 ml # Voids 1 2 # Bowel Movements 0 Result Diagram: 07/31/17 0432 07/31/17 0432 Objective Remarks GENERAL: This is a well-nourished, well-developed patient, in no apparent distress. SKIN: No rashes, warm and dry HEAD: Atraumatic. Normocephalic. EYES: Pupils equal round and reactive. Extraocular motions intact. No scleral icterus. ENT: Nose without bleeding, or drainage, Airway patent. NECK: Trachea midline. Supple CARDIOVASCULAR: Regular rate and rhythm without murmurs, gallops, or rubs. RESPIRATORY: Fair air entry bilaterally. No wheezes, rales, or rhonchi. GASTROINTESTINAL: Abdomen soft, non-tender, nondistended. Positive bowel sounds MUSCULOSKELETAL: Extremities without clubbing, cyanosis, or edema. Pedal pulses appreciated NEUROLOGICAL: Awake and alert. Lower extremity weakness bilaterally A/P Problem List: (1) Lower extremity weakness ICD Code: R29.898 - Other symptoms and signs involving the musculoskeletal system Status: Acute (2) Atrial fibrillation with RVR ICD Code: I48.91 - Unspecified atrial fibrillation Status: Acute Assessment and Plan 85-year-old female with: Transient altered mental status ? TIA (resolved) A. fib Hypertension Plan: Stroke alert called on the floor. Neurology consulted Dr. Puente. Status post ICU Head CT negative for bleed. Neuro status back to baseline. Anticoagulation with heparin drip and Coumadin bridging per neurology Add clonidine 0.1 mg by mouth every 6 hourly when necessary for SBP greater than 160 mmHg Radiology following for A. fib By mouth amiodarone and Cardizem per cardiology. Appreciate hematology consultation continue current care Discharge Planning When patient stable Problem Qualifiers (1) Lower extremity weakness: Qualified Codes: R29.898 - Other symptoms and signs involving the musculoskeletal system Gavino Arroyo MD Jul 31, 2017 18:09
[2017-08-01] VITALS (10 sets, daily range): BP systolic 155–181; BP diastolic 80–100; PULSE 75–97; RESP 17–24; TEMP 97.7–98.6; O2SAT 96–100
[2017-08-01] MEDS: SODIUM CHLOR 0.9% 1000 ML INJ 1,000 ML IV SCH ×3 (03:39→15:57)
[2017-08-01] MEDS: cloNIDine HCL 0.1 MG TAB PO PRN ×2 (04:27→15:53)
[2017-08-01] MEDS: LEVOTHYROXINE SODIUM 75 MCG TAB PO SCH (04:27)
[2017-08-01] MEDS: hydrALAZINE HCL 50 MG TAB PO PRN (06:05)
[2017-08-01] MEDS: GEMFIBROZIL 600 MG TAB PO SCH ×2 (06:05→15:53)
[2017-08-01] MEDS: LISINOPRIL 10 MG TAB PO SCH (07:05)
[2017-08-01 07:45] LABS: INTERNATIONAL NORMALIZED RATIO 1.3 RATIO; PROTHROMBIN TIME - PATIENT 13.4 SEC (9.8-11.6)
[2017-08-01] MEDS: DILTIAZEM-CD 240 MG CAP ER PO SCH (08:20)
[2017-08-01] MEDS: PRAVASTATIN SOD 40 MG TAB PO SCH (08:20)
[2017-08-01] MEDS: AMIODARONE 200 MG TAB PO SCH (08:20)
[2017-08-01] MEDS: DOCUSATE SODIUM 50 MG/SENNA 8.6 MG TAB PO SCH ×2 (08:20→20:31)
[2017-08-01] MEDS: methylPREDNISolone SOD SUCC 125 MG/2 ML VIAL IV PUSH SCH ×2 (08:21→20:32)
[2017-08-01] MEDS: SODIUM CHLORIDE 0.9% FLUSH 10 ML FLUSH IV FLUSH SCH ×2 (09:18→20:32)
[2017-08-01] MEDS: ACETAMINOPHEN/HYDROcodone 325 MG/5 MG TAB PO PRN (09:18)
[2017-08-01] MEDS: INSULIN ASPART SUPPLEMENTAL SCALE SQ SCH ×4 (09:21→21:56)
--- NOTE | 2017-08-01 11:59 | HHI.PR ---
Review/Management Diagnosis/Plan: (1) Polymyalgia rheumatica ICD Codes: M35.3 - Polymyalgia rheumatica Status: Acute Plan: cpk nml elevated esr/crp responding to steroids recs f/u esr/crp transition to po prednisone in am; 20mg po qam; taper q2-4 weeks d/c planning snf/rehab (2) Lower extremity weakness ICD Codes: R29.898 - Other symptoms and signs involving the musculoskeletal system Status: Acute Plan: (3) TIA (transient ischemic attack) ICD Codes: G45.9 - Transient cerebral ischemic attack, unspecified Status: Acute Plan: possible on hep gtt/coumadin ok for floor (4) Atrial fibrillation with RVR ICD Codes: I48.91 - Unspecified atrial fibrillation Status: Acute Plan: Per Cardiology Started on Eliquis for stroke prophy Cardizem drip (5) Lumbar canal stenosis ICD Codes: M48.061 - Spinal stenosis, lumbar region without neurogenic claudication Plan: MRIs reviewed with central canal stenosis L2-L3 Subjective Subjective Comments No acute events reported legs feel stronger, no pain No headache No chest pain No dyspnea Active Medications Current Medications Medications (Trade) Dose Ordered Sig/Stu Route Start Time Stop Time Status Last Admin (Lopid) 600 mg BIDAC PO 07/30/17 07:00 08/01/17 06:05 (Synthroid) 75 mcg DAILY@0600 PO 07/30/17 06:00 08/01/17 04:27 (Pravachol) 40 mg DAILY PO 07/30/17 09:00 08/01/17 08:20 (Cordarone) 200 mg DAILY PO 07/30/17 12:00 08/01/17 08:20 (Cardizem Cd) 240 mg DAILY PO 07/30/17 12:15 08/01/17 08:20 (Prinivil) 10 mg DAILY PO 07/31/17 09:00 08/01/17 07:05 (Apresoline) 50 mg Q8HR PRN PO 07/30/17 12:15 08/01/17 06:05 ([place] 5-325 Mg) 1 tab Q6H PRN PO 07/30/17 13:00 08/01/17 09:18 (Narcan Inj) 0.4 mg UNSCH PRN IV PUSH 07/30/17 12:30 (Caridad-Colace) 1 tab BID PO 07/30/17 21:00 08/01/17 08:20 (Milk Of Magnesia Liq) 30 ml Q12H PRN PO 07/30/17 13:00 (Senokot) 17.2 mg Q12H PRN PO 07/30/17 13:00 (Dulcolax Supp) 10 mg DAILY PRN RECTAL 07/30/17 13:00 (Lactulose Liq) 30 ml DAILY PRN PO 07/30/17 13:00 (NS Flush) 2 ml BID IV FLUSH 07/30/17 21:00 08/01/17 09:18 (NS Flush) 2 ml UNSCH PRN IV FLUSH 07/30/17 13:15 (NovoLOG SUPPLEMENTAL SCALE) 1 ACHS SQ 07/30/17 17:00 08/01/17 09:21 (D50w (Vial) Inj) 50 ml UNSCH PRN IV PUSH 07/30/17 13:15 (Glucagon Inj) 1 mg UNSCH PRN OTHER 07/30/17 13:15 Pharmacy Profile Note 0 ml @ 0 mls/hr UNSCH OTHER 07/30/17 15:45 Heparin Sodium/ Dextrose 250 ml @ 10 mls/hr TITRATE PRN IV 07/30/17 16:00 07/31/17 17:24 (Catapres) 0.1 mg Q6H PRN PO 07/30/17 16:00 08/01/17 04:27 (Coumadin) 2.5 mg DAILY@1600 PO 07/30/17 16:30 07/31/17 17:22 Sodium Chloride 1,000 ml @ 70 mls/hr [id number] IV 07/31/17 08:00 08/01/17 03:39 (SoluMEDROL INJ) 125 mg Q12HR IV PUSH 07/31/17 10:45 08/01/17 21:00 08/01/17 08:21 Allergies Allergies Coded Allergies No Known Allergies (Verified Allergy, Unknown, 07/29/17) Review of Systems Constitutional: Negative except HPI Eye: Negative Except HPI ENMT: Negative except HPI Respiratory: Negative except HPI Cardiovascular: Negative except HPI Gastrointestinal: Negative except HPI Ajit/Lymph: Negative except HPI Musculoskeletal: Back pain Neurologic: Negative except HPI Psychiatric: Negative except HPI All other ROS: Negative, ROS reviewed as documented in chart Exam I&O / VS 08/01/17 08/01/17 08/02/17 15:00 23:00 07:00 Intake Total 240 ml Balance 240 ml Intake Oral 240 ml Vital Signs Date Time Temp Pulse Resp B/P (MAP) Pulse Ox O2 Delivery O2 Flow Rate FiO2 08/01/17 08:00 93 08/01/17 08:00 98.2 93 18 164/84 (110) 100 08/01/17 06:00 81 08/01/17 04:00 97 08/01/17 04:00 98.2 97 24 181/100 (127) 99 08/01/17 02:00 81 08/01/17 00:00 87 08/01/17 00:00 97.7 87 24 155/81 (105) 97 07/31/17 22:00 70 07/31/17 20:56 97 07/31/17 20:00 98.1 75 20 141/65 (90) 99 07/31/17 20:00 75 07/31/17 18:00 86 07/31/17 16:00 98.9 82 17 152/72 (98) 98 07/31/17 16:00 82 07/31/17 14:00 88 07/31/17 12:00 98.4 87 23 143/75 (97) 99 07/31/17 12:00 87 General: Alert and Oriented, No acute distress Eye: PERRL, EOMI Respiratory: Non-labored respirations, Symmetrical expansion Cardiology: Irregular Rhythm Musculoskeletal: Tenderness (knees and both hips), Swelling (several apparent lipomas, left knee mild swelling as well) Neurologic: Alert, Oriented, CN II-XII intact Psychiatric: Appropriate mood & affect, Other (cooperative at times, but gives variable effort due to pain) Exam Comments alert, o x 2, follows, eomi, vf, face sym, left distal hand weak finger flexors - chronic per pt, no pain with foot/leg manipulation, able to raise legs to gravity for a few seconds and better strength Objective Micro and Labs Laboratory Tests Test 07/31/17 14:15 07/31/17 20:10 08/01/17 00:10 08/01/17 07:11 Activated Partial Thromboplast Time 73.8 136.8 60.5 57.2 Iron Level 13 Total Iron Binding Capacity 158 Percent Iron Saturation 8.2 Ferritin 352 Lactate Dehydrogenase 147 Erythrocyte Sedimentation Rate GREATER THAN 140 Prothrombin Time 13.4 Prothromb Time International Ratio 1.3 C-Reactive Protein 24.00 Problem Qualifiers (1) Lower extremity weakness: Qualified Codes: R29.898 - Other symptoms and signs involving the musculoskeletal system (2) TIA (transient ischemic attack): Qualified Codes: G45.1 - Carotid artery syndrome (hemispheric) Stu Puente MD Aug 01, 2017 11:59
--- NOTE | 2017-08-01 12:00 | HHI.PR ---
Subjective Remarks resting in bed comfortably With family at the bedside No fever or event overnight Discussed with neurology Dr. Gifford Objective Vitals Vital Signs Date Time Temp Pulse Resp B/P (MAP) Pulse Ox O2 Delivery O2 Flow Rate FiO2 08/01/17 08:00 93 08/01/17 08:00 98.2 93 18 164/84 (110) 100 08/01/17 06:00 81 08/01/17 04:00 97 08/01/17 04:00 98.2 97 24 181/100 (127) 99 08/01/17 02:00 81 08/01/17 00:00 87 08/01/17 00:00 97.7 87 24 155/81 (105) 97 07/31/17 22:00 70 07/31/17 20:56 97 07/31/17 20:00 98.1 75 20 141/65 (90) 99 07/31/17 20:00 75 07/31/17 18:00 86 07/31/17 16:00 98.9 82 17 152/72 (98) 98 07/31/17 16:00 82 07/31/17 14:00 88 07/31/17 12:00 98.4 87 23 143/75 (97) 99 07/31/17 12:00 87 I/O 07/31/17 07/31/17 07/31/17 08/01/17 08/01/17 08/01/17 07:00 15:00 23:00 07:00 15:00 23:00 Intake Total 1422 ml 150 ml 1035 ml 360 ml 240 ml Output Total 500 ml 500 ml 700 ml Balance 922 ml 150 ml 535 ml -340 ml 240 ml Intake Oral 480 ml 880 ml 360 ml 240 ml IV Total 942 ml 150 ml 155 ml Output Urine Total 500 ml 500 ml 700 ml # Voids 2 1 # Bowel Movements 0 0 1 Result Diagram: 07/31/1743107/31/17431 Objective Remarks GENERAL: This is a well-nourished, well-developed patient, in no apparent distress. SKIN: No rashes, warm and dry HEAD: Atraumatic. Normocephalic. EYES: Pupils equal round and reactive. Extraocular motions intact. No scleral icterus. ENT: Nose without bleeding, or drainage, Airway patent. NECK: Trachea midline. Supple CARDIOVASCULAR: Regular rate and rhythm without murmurs, gallops, or rubs. RESPIRATORY: Fair air entry bilaterally. No wheezes, rales, or rhonchi. GASTROINTESTINAL: Abdomen soft, non-tender, nondistended. Positive bowel sounds MUSCULOSKELETAL: Extremities without clubbing, cyanosis, or edema. Pedal pulses appreciated NEUROLOGICAL: Awake and alert. Lower extremity weakness bilaterally A/P Problem List: (1) Lower extremity weakness ICD Code: R29.898 - Other symptoms and signs involving the musculoskeletal system Status: Acute (2) Atrial fibrillation with RVR ICD Code: I48.91 - Unspecified atrial fibrillation Status: Acute Assessment and Plan 85-year-old female with: Transient altered mental status ? TIA (resolved) A. fib Hypertension DVT prophylaxis Plan: 08/01: Continue current care as below, discussed with neurology, continue reaching , will give extra dose of Coumadin and repeat PT/INR in a.m.continue prednisone with good response Stroke alert called on the floor. Neurology consulted Dr. Puente. Status post ICU Head CT negative for bleed. Neuro status back to baseline. Anticoagulation with heparin drip and Coumadin bridging per neurology Add clonidine 0.1 mg by mouth every 6 hourly when necessary for SBP greater than 160 mmHg Radiology following for A. fib By mouth amiodarone and Cardizem per cardiology. Appreciate hematology consultation continue current care Discharge Planning When patient stable Problem Qualifiers (1) Lower extremity weakness: Qualified Codes: R29.898 - Other symptoms and signs involving the musculoskeletal system Gavino Arroyo MD Aug 01, 2017 12:00
--- NOTE | 2017-08-01 14:46 | HHI.NSPN ---
Note Status Status: Progress Note Interval History Interval History This is a 85 y/o female with history of hypertension, dyslipidemia, hypothyroidism admitted to the hospital for lower extremity weakness. She usually walks with a walker at her baseline over the past 6 months, but the morning of admission was unable to ambulate or move her legs. She denies any antecedent trauma, but her daughter in the room states that the patient may have fallen inise her closet recently. Pt denies any bowel/bladder retention or incontinence or saddle anesthesia. She denies any fevers, chills, night sweats, or early satiety. Apparently she came into the emergency room complaining of lower extremity weakness. She was found to have spinal stenosis. neurosurgical consultation was requested. She underwent a cardiology workup and was found to have new onset atrial fibrillation with rapid ventricular response. The patient was started on Eliquis 2.5 milligrams last night. The patient around noon-time was found to have altered mental status and was unresponsive. A stroke alert was called in. Dr. Morales wanted hematology consult to see whether the patient could have tPA as patient is on low dose Eliquis. Apparently the change in mental status was very brief. She subsequently developed weakness in her left upper extremity. She came back to baseline very rapidly.Therefore, Dr. Puente did not recommend any tPA. It is being thought that the patient possibly had a TIA and now she is on full dose heparin which will be transition into Coumadin. The patient was transfered into the ICU 2. Today she feels that her left upper extremity is now weaker 2/. Feels better. Her lower extremities are stronger today Labs, Micro, & Vital Signs Results Date Time Temp Pulse Resp B/P (MAP) Pulse Ox O2 Delivery O2 Flow Rate FiO2 08/01/17 12:00 98.6 86 19 159/96 (117) 97 08/01/17 08:00 93 08/01/17 08:00 98.2 93 18 164/84 (110) 100 08/01/17 06:00 81 08/01/17 04:00 97 08/01/17 04:00 98.2 97 24 181/100 (127) 99 08/01/17 02:00 81 08/01/17 00:00 87 08/01/17 00:00 97.7 87 24 155/81 (105) 97 07/31/17 22:00 70 07/31/17 20:56 97 07/31/17 20:00 98.1 75 20 141/65 (90) 99 07/31/17 20:00 75 07/31/17 18:00 86 07/31/17 16:00 98.9 82 17 152/72 (98) 98 07/31/17 16:00 82 08/02/17 07:00 Intake Total 240 ml Balance 240 ml Constitutional Vital Signs Date Time Temp Pulse Resp B/P (MAP) Pulse Ox O2 Delivery O2 Flow Rate FiO2 08/01/17 12:00 98.6 86 19 159/96 (117) 97 08/01/17 08:00 93 08/01/17 08:00 98.2 93 18 164/84 (110) 100 08/01/17 06:00 81 08/01/17 04:00 97 08/01/17 04:00 98.2 97 24 181/100 (127) 99 08/01/17 02:00 81 08/01/17 00:00 87 08/01/17 00:00 97.7 87 24 155/81 (105) 97 07/31/17 22:00 70 07/31/17 20:56 97 07/31/17 20:00 98.1 75 20 141/65 (90) 99 07/31/17 20:00 75 07/31/17 18:00 86 07/31/17 16:00 98.9 82 17 152/72 (98) 98 07/31/17 16:00 82 08/02/17 07:00 Intake Total 240 ml Balance 240 ml Physical Exam Ms More is alert, awake and oriented to time, place and person. Speech is fluent. Cranial nerve examination: pupils to be equal, round and reactive to light. Extra-ocular movements are intact. Facial motor and sensory function are normal and symmetrical. Gross hearing appears intact. Sternocleidomastoid and trapezius muscles are symmetrical. Other cranial nerves are intact. Neck is soft and supple with a decreased range of motion Muscle strength is normal in all muscle groups of her right upper extremitie. 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 She raises both lower extremities against gravity Sensory examination is intact to light touch and pin prick in both the upper and lower extremities. Deep tendon reflexes are symmetrical in both upper extremities, trace in her knees and ankles. There is a bilateral plantar flexion response. Cerebellar examination is very limited due to her condition Lungs: clear, nonlabored breathing, no wheezing Heart: S1, S2, regular rhythm and rate Skin: warm and dry, no cyanosis. Medications Current Medications Current Medications Diltiazem HCl 125 mg/Sodium Chloride 125 ml @ 5 mls/hr TITRATE PRN IV tachycardia Last administered on 07/29/17at 11:49; Start 07/29/17 at 09:45; Stop at 18:12; Status DC Diltiazem HCl (Cardizem Inj) 20 mg BOLUS ONCE IV PUSH Last administered on 07/29at 09:51; Start 07/29/17 at 09:45; Stop 07/29/17 at 09:46; Status DC Sodium Chloride 1,000 ml @ 100 mls/hr Q10H IV Last administered on 07/29/17at 09 :51; Start 07/29/17 at 09:45; Stop 07/29/17 at 17:17; Status DC Diltiazem HCl (Cardizem) 30 mg Q6HR PO Last administered on 07/30/17at 05:28; Start 07/29/17 at 18:00; Stop 07/30/17 at 12:01; Status DC Sodium Chloride 1,000 ml @ 60 mls/hr [id number] ONCE IV Last administered on at 17:25; Start 07/29/17 at 17:15; Stop 07/30/17 at 09:54; Status DC Enoxaparin Sodium (Lovenox Inj) 40 mg Q24H SQ ; Start 07/30/17 at 09:00; Stop 07/30/17 at 09:00; Status DC Gemfibrozil (Lopid) 600 mg BIDAC PO Last administered on 08/01/17at 06:05; Start 07/30/17 at 07:00 Levothyroxine Sodium (Synthroid) 75 mcg DAILY@0600 PO Last administered on at 04:27; Start 07/30/17 at 06:00 Pravastatin Sodium (Pravachol) 40 mg DAILY PO Last administered on 08/01/17at 08: 20; Start 07/30/17 at 09:00 Amiodarone HCl 450 mg/Sodium Chloride 259 ml @ 33 mls/hr [id number] IV Last administered on 07/30/17at 05:25; Start 07/29/17 at 20:00; Stop 07/30/17 at 11:59; Status DC Sodium Chloride (NS Flush) 2 ml UNSCH PRN IVF FLUSH AFTER USING IV ACCESS; Start 07/29/17 at 18:15; Stop 07/30/17 at 13:11; Status DC Amiodarone HCl 150 mg/Dextrose 100 ml @ 100 mls/hr Q1H ONCE IV Last administered on 07/29/17at 20:22; Start 07/29/17 at 18:10; Stop 07/30/17 at 11:59; Status DC Apixaban (Eliquis) 2.5 mg BID PO Last administered on 07/30/17at 11:10; Start 07/29/17 at 21:00; Stop 07/30/17 at 15:38; Status DC Morphine Sulfate (Morphine Inj) 2 mg ONCE ONCE IV PUSH Last administered on 07/30/17at 00:06; Start 07/29/17 at 23:00; Stop 07/29/17 at 23:01; Status DC Clonidine (Catapres) 0.1 mg ONCE ONCE PO Last administered on 07/30/17at 02:09; Start 07/30/17 at 02:00; Stop 07/30/17 at 02:02; Status DC Amiodarone HCl (Cordarone) 200 mg DAILY PO Last administered on 08/01/17at 08:20 ; Start 07/30/17 at 12:00 Diltiazem HCl (Cardizem Cd) 240 mg DAILY PO Last administered on 08/01/17at 08:20 ; Start 07/30/17 at 12:15 Lisinopril (Prinivil) 10 mg DAILY PO Last administered on 08/01/17at 07:05; Start 07/31/17 at 09:00 Hydralazine HCl (Apresoline) 50 mg Q8HR PRN PO SBP>160, DBP>90 Last administered on 2/4/18at 06:05; Start 07/30/17 at 12:15 Acetaminophen/ Hydrocodone Bitart ([place] 5-325 Mg) 1 tab Q6H PRN PO PAIN 2-10 Last administered on 08/01/17at 09:18; Start 07/30/17 at 13:00 Naloxone HCl (Narcan Inj) 0.4 mg UNSCH PRN IV PUSH SEE LABEL COMMENTS; Start at 12:30 Senna/Docusate Sodium (Caridad-Colace) 1 tab BID PO Last administered on 08/01/17at 08:20; Start 07/30/17 at 21:00 Magnesium Hydroxide (Milk Of Magnesia Liq) 30 ml Q12H PRN PO Mild constipation ; Start 07/30/17 at 13:00 Sennosides (Senokot) 17.2 mg Q12H PRN PO Moderate constipation; Start 07/30/17 at 13:00 Bisacodyl (Dulcolax Supp) 10 mg DAILY PRN RECTAL SEVERE CONSITIPATION; Start at 13:00 Lactulose (Lactulose Liq) 30 ml DAILY PRN PO SEVERE CONSITIPATION; Start at 13:00 Sodium Chloride (NS Flush) 2 ml BID IV FLUSH Last administered on 08/01/17at 09: 18; Start 07/30/17 at 21:00 Sodium Chloride (NS Flush) 2 ml UNSCH PRN IV FLUSH FLUSH AFTER USING IV ACCESS ; Start 07/30/17 at 13:15 Insulin Aspart (NovoLOG SUPPLEMENTAL SCALE) 1 ACHS SQ Last administered on at 09:21; Start 07/30/17 at 17:00 Dextrose (D50w (Vial) Inj) 50 ml UNSCH PRN IV PUSH HYPOGLYCEMIA-SEE COMMENTS; Start 07/30/17 at 13:15 Glucagon (Glucagon Inj) 1 mg UNSCH PRN OTHER HYPOGLYCEMIA-SEE COMMENTS; Start 07/30/17 at 13:15 Sodium Chloride 1,000 ml @ 84 mls/hr [id number] IV Last administered on 07/31/17at 01:55; Start 07/30/17 at 14:00; Stop 07/31/17 at 08:28; Status DC Iodixanol (VISIPAQUE 320 INJ (Rad CT)) 75 ml STK-MED ONCE IVCONTRAST Last administered on 07/30/17 14:28; Start 07/30/17 at 14:28; Stop 07/30/17 at 14:29; Status DC Heparin Sodium/ Dextrose 250 ml @ 0 mls/hr TITRATE PRN IV Coagulation Management; Start 07/30/17 at 15:45; Status UNV Pharmacy Profile Note 0 ml @ 0 mls/hr UNSCH OTHER ; Start 07/30/17 at 15:45 Heparin Sodium/ Dextrose 250 ml @ 10 mls/hr TITRATE PRN IV Coagulation Management Last administered on 07/31/17 17:24; Start 07/30/17 at 16:00 Clonidine (Catapres) 0.1 mg Q6H PRN PO SBP greater than 160mm Hg Last administered on 08/01/17 04:27; Start 07/30/17 at 16:00 Warfarin Sodium (Coumadin) 2.5 mg DAILY@1600 PO Last administered on 07/31/17 17:22; Start 07/30/17 at 16:30 Patient Medication Teaching (Coumadin Booklet) 1 ONCE ONCE .XX Last administered on 07/30/17 17:08; Start 07/30/17 at 16:30; Stop 07/30/17 at 16:31; Status DC Sodium Chloride 1,000 ml @ 70 mls/hr [id number] IV Last administered on 08/01/17 03:39; Start 07/31/17 at 08:00 Methylprednisolone Sodium Succinate (SoluMEDROL INJ) 125 mg Q12HR IV PUSH Last administered on 08/01/17 08:21; Start 07/31/17 at 10:45; Stop 08/01/17 at 21:00 Warfarin Sodium (Coumadin) 2 mg ONCE@1600 ONCE PO ; Start 08/01/17 at 16:00; Stop 08/01/17 at 16:01 Medical Decision Making MDM Remarks Last 48 hours Impressions Neck CTA 07/30/17 0000 Signed Impressions: Service Date/Time: Sunday, July 30, 2017 13:52 - CONCLUSION: 1. Patent carotid arteries. 2. 50-60%% stenoses involving both vertebral arteries. Tyson Reina Jr., MD Knee X-Ray 07/30/17 0000 Signed Impressions: Service Date/Time: Sunday, July 30, 2017 16:22 - CONCLUSION: 1. Soft tissue swelling and joint effusion. 2. Severe osteoarthritis. Deep Aviles MD Head CTA 07/30/17 0000 Signed Impressions: Service Date/Time: Sunday, July 30, 2017 13:52 - CONCLUSION: 1. Heavily calcified distal intracranial carotid arteries. 2. No evidence for large vessel occlusion. Holden Bai MD Head CT 07/30/17 0000 Signed Impressions: Service Date/Time: Sunday, July 30, 2017 13:46 - CONCLUSION: 1. Senescent changes with prominent periventricular small vessel ischemic white matter demyelination. 2. No acute intracranial abnormality. Holden Bai MD Chest X-Ray 07/30/17 0000 Signed Impressions: Service Date/Time: Sunday, July 30, 2017 13:19 - CONCLUSION: 1. Probable left basilar atelectasis. 2. Slight elevation left hemidiaphragm. Deep Aviles MD Attending Statement Neuro. continue neuro checks. Again, I do not think her deficits are related to her lumbar stenosis. EEG tdone. Nonoperative treatment with Daily physical therapy. Physical therapy assessment and daily PT Pulmonary.. Continue aggressive pulmonary toilette, nasotracheal suction, and breathing treatments with nebulizers. Nutrition. NPO Renal. monitor closely urine output, BUN and creatinine Endocrine. Monitor serial Acu checks and SSI as needed in detail ID monitor for signs of infection Protonix for stress ulcer prophylaxis Nikhil hose and SCD's for DVT prophylaxis. Pravin Varela MD Aug 01, 2017 14:46
[2017-08-01] MEDS: WARFARIN SOD 2.5 MG TAB PO SCH (15:53)
[2017-08-01] MEDS ORDERED: WARFARIN SOD 2 MG TAB PO ONE (16:00)
[2017-08-02] MEDS: HEPARIN-D5W 25,000 U/250 ML 250 ML IV PRN (00:24)
[2017-08-02] MEDS: cloNIDine HCL 0.1 MG TAB PO PRN ×2 (00:32→09:15)
[2017-08-02 01:51] VITALS: BP 197/94; PULSE 72; RESP 17; TEMP 97.9; O2SAT 96
[2017-08-02] MEDS: hydrALAZINE HCL 50 MG TAB PO PRN (04:31)
--- NOTE | 2017-08-02 05:21 | MG ---
cc: SAMEER GARAY MD Lab No: [id number] Date: 07/31/2017 Age: 82 Sex: F Race: DATE OF 1935. HISTORY Acute confusional state. FINDINGS 7-8 Hz posterior rhythm, 20-50 microvolts, low-amplitude theta, beta and delta frequencies occurring in the frontal channels. Good EEG variability reactivity. Slowing of the background frequencies, transition into drowsy state, accompanied by some delta bursts. Bursts of sharply-contoured theta at T5, epoch 29. Left posterior sharp transients epoch 31. Another sharp wave noted at epoch 51, T501, followed by some spindles suggestive of Stage II sleep. There are small sharp transients at epoch 64, T5, epoch 79. Sharp transient posterior channel at epoch 113. Single lead EKG showing sinus rhythm. INTERPRETATION Nonspecific changes, possible mild cortical irritability left posterior temporo-occipital region, awake sleep EEG. Clinical correlation. Sameer Garay MD MG/SSB /11:01 PM /5:10 AM
[2017-08-02] MEDS: LEVOTHYROXINE SODIUM 75 MCG TAB PO SCH (06:01)
[2017-08-02 06:02] VITALS: BP 211/100; PULSE 77; RESP 17; TEMP 97.8; O2SAT 96
[2017-08-02] MEDS: ACETAMINOPHEN/HYDROcodone 325 MG/5 MG TAB PO PRN (06:29)
[2017-08-02] MEDS: GEMFIBROZIL 600 MG TAB PO SCH (06:32)
[2017-08-02 07:27] LABS: HEMATOCRIT 25.8 % (35.0-46.0); HEMOGLOBIN 8.7 GM/DL (11.6-15.3); MEAN CELL VOLUME 90.6 FL (80.0-100.0); MEAN CORPUSCULAR HEMOGLOBIN 30.7 PG (27.0-34.0); MEAN CORPUSCULAR HGB CONC 33.9 % (32.0-36.0); MEAN PLATELET VOLUME 9.6 FL (7.0-11.0); PLATELET COUNT 313 TH/MM3 (150-450); RED BLOOD COUNT 2.85 MIL/MM3 (4.00-5.30); RED CELL DISTRIBUTION WIDTH 14.5 % (11.6-17.2)
[2017-08-02 07:41] LABS: INTERNATIONAL NORMALIZED RATIO 2.3 RATIO; PROTHROMBIN TIME - PATIENT 22.9 SEC (9.8-11.6)
[2017-08-02 08:00] VITALS: BP 194/93; PULSE 85; RESP 18; TEMP 98.4; O2SAT 97
[2017-08-02] MEDS: INSULIN ASPART SUPPLEMENTAL SCALE SQ SCH ×2 (08:00→13:02)
[2017-08-02 08:07] VITALS: O2SAT 96
--- NOTE | 2017-08-02 08:36 | HHI.PR ---
Review/Management Diagnosis/Plan: (1) Polymyalgia rheumatica ICD Codes: M35.3 - Polymyalgia rheumatica Status: Acute Plan: cpk nml elevated esr/crp responding to steroids recs f/u esr/crp- crp down to 12; esr still elevated doing well on steroids transition to po prednisone in am; 20mg po qam; taper q2-4 weeks d/c planning snf/rehab vs home with p.t. (2) Lower extremity weakness ICD Codes: R29.898 - Other symptoms and signs involving the musculoskeletal system Status: Acute Plan: (3) TIA (transient ischemic attack) ICD Codes: G45.9 - Transient cerebral ischemic attack, unspecified Status: Acute Plan: coumadin eeg abnormal- keppra started (4) Atrial fibrillation with RVR ICD Codes: I48.91 - Unspecified atrial fibrillation Status: Acute Plan: Per Cardiology Started on Eliquis for stroke prophy Cardizem drip (5) Lumbar canal stenosis ICD Codes: M48.061 - Spinal stenosis, lumbar region without neurogenic claudication Plan: MRIs reviewed with central canal stenosis L2-L3 Subjective Subjective Comments No acute events reported No headache No chest pain No dyspnea Active Medications Current Medications Medications (Trade) Dose Ordered Sig/Stu Route Start Time Stop Time Status Last Admin (Lopid) 600 mg BIDAC PO 07/30/17 07:00 08/02/17 06:32 (Synthroid) 75 mcg DAILY@0600 PO 07/30/17 06:00 08/02/17 06:01 (Pravachol) 40 mg DAILY PO 07/30/17 09:00 08/01/17 08:20 (Cordarone) 200 mg DAILY PO 07/30/17 12:00 08/01/17 08:20 (Cardizem Cd) 240 mg DAILY PO 07/30/17 12:15 08/01/17 08:20 (Prinivil) 10 mg DAILY PO 07/31/17 09:00 08/01/17 07:05 (Apresoline) 50 mg Q8HR PRN PO 07/30/17 12:15 08/02/17 04:31 ([place] 5-325 Mg) 1 tab Q6H PRN PO 07/30/17 13:00 08/02/17 06:29 (Narcan Inj) 0.4 mg UNSCH PRN IV PUSH 07/30/17 12:30 (Caridad-Colace) 1 tab BID PO 07/30/17 21:00 08/01/17 20:31 (Milk Of Magnesia Liq) 30 ml Q12H PRN PO 07/30/17 13:00 (Senokot) 17.2 mg Q12H PRN PO 07/30/17 13:00 (Dulcolax Supp) 10 mg DAILY PRN RECTAL 07/30/17 13:00 (Lactulose Liq) 30 ml DAILY PRN PO 07/30/17 13:00 (NS Flush) 2 ml BID IV FLUSH 07/30/17 21:00 08/01/17 20:32 (NS Flush) 2 ml UNSCH PRN IV FLUSH 07/30/17 13:15 (NovoLOG SUPPLEMENTAL SCALE) 1 ACHS SQ 07/30/17 17:00 08/01/17 21:56 (D50w (Vial) Inj) 50 ml UNSCH PRN IV PUSH 07/30/17 13:15 (Glucagon Inj) 1 mg UNSCH PRN OTHER 07/30/17 13:15 Pharmacy Profile Note 0 ml @ 0 mls/hr UNSCH OTHER 07/30/17 15:45 Heparin Sodium/ Dextrose 250 ml @ 10 mls/hr TITRATE PRN IV 07/30/17 16:00 08/02/17 00:24 (Catapres) 0.1 mg Q6H PRN PO 07/30/17 16:00 08/02/17 00:32 (Coumadin) 2.5 mg DAILY@1600 PO 07/30/17 16:30 08/01/17 15:53 Sodium Chloride 1,000 ml @ 70 mls/hr [id number] IV 07/31/17 08:00 08/01/17 15:57 Allergies Allergies Coded Allergies No Known Allergies (Verified Allergy, Unknown, 07/29/17) Review of Systems Constitutional: Negative except HPI Eye: Negative Except HPI ENMT: Negative except HPI Respiratory: Negative except HPI Cardiovascular: Negative except HPI Gastrointestinal: Negative except HPI Ajit/Lymph: Negative except HPI Musculoskeletal: Back pain Neurologic: Negative except HPI Psychiatric: Negative except HPI All other ROS: Negative, ROS reviewed as documented in chart Exam I&O / VS Vital Signs Date Time Temp Pulse Resp B/P (MAP) Pulse Ox O2 Delivery O2 Flow Rate FiO2 2/5/18 08:07 96 08/02/17 06:02 97.8 77 17 211/100 (137) 96 08/02/17 01:51 97.9 72 17 197/94 (128) 96 08/01/17 20:47 98.2 75 17 164/80 (108) 96 08/01/17 17:25 98 21 08/01/17 16:33 87 08/01/17 16:00 98.5 81 19 181/83 (115) 98 08/01/17 12:00 85 08/01/17 12:00 98.6 86 19 159/96 (117) 97 General: Alert and Oriented, No acute distress Eye: PERRL, EOMI Respiratory: Non-labored respirations, Symmetrical expansion Cardiology: Irregular Rhythm Musculoskeletal: Tenderness (knees and both hips), Swelling (several apparent lipomas, left knee mild swelling as well) Neurologic: Alert, Oriented, CN II-XII intact Psychiatric: Appropriate mood & affect, Other (cooperative at times, but gives variable effort due to pain) Exam Comments alert, o x 2, follows, eomi, vf, face sym, left distal hand weak finger flexors - chronic per pt, able to raise legs to gravity rt>left Objective Micro and Labs Laboratory Tests Test 08/01/17 16:23 08/02/17 06:20 White Blood Count 8.0 Red Blood Count 2.85 Hemoglobin 8.7 Hematocrit 25.8 Mean Corpuscular Volume 90.6 Mean Corpuscular Hemoglobin 30.7 Mean Corpuscular Hemoglobin Concent 33.9 Red Cell Distribution Width 14.5 Platelet Count 313 Mean Platelet Volume 9.6 Erythrocyte Sedimentation Rate GREATER THAN 140 Prothrombin Time 22.9 Prothromb Time International Ratio 2.3 Activated Partial Thromboplast Time 53.1 C-Reactive Protein 12.30 Problem Qualifiers (1) Lower extremity weakness: Qualified Codes: R29.898 - Other symptoms and signs involving the musculoskeletal system (2) TIA (transient ischemic attack): Qualified Codes: G45.1 - Carotid artery syndrome (hemispheric) Stu Puente MD Aug 02, 2017 08:35
[2017-08-02] MEDS ORDERED: levETIRAcetam 250 MG TAB PO SCH (09:00)
[2017-08-02] MEDS ORDERED: predniSONE 20 MG TAB PO SCH (09:00)
[2017-08-02] MEDS: SODIUM CHLORIDE 0.9% FLUSH 10 ML FLUSH IV FLUSH SCH (09:00)
[2017-08-02] MEDS: DILTIAZEM-CD 240 MG CAP ER PO SCH (09:13)
[2017-08-02] MEDS: AMIODARONE 200 MG TAB PO SCH (09:15)
[2017-08-02] MEDS: PRAVASTATIN SOD 40 MG TAB PO SCH (09:15)
[2017-08-02] MEDS: LISINOPRIL 10 MG TAB PO SCH (09:16)
[2017-08-02] MEDS: DOCUSATE SODIUM 50 MG/SENNA 8.6 MG TAB PO SCH (09:16)
[2017-08-02] MEDS: SODIUM CHLOR 0.9% 1000 ML INJ 1,000 ML IV SCH (09:21)
[2017-08-02] MEDS ORDERED: PRED20 PO (10:06)
[2017-08-02] MEDS ORDERED: COUM2TAB PO (10:06)
[2017-08-02] MEDS ORDERED: LEVE250 PO (10:06)
[2017-08-02] MEDS ORDERED: AMIO200T PO (10:06)
[2017-08-02] MEDS ORDERED: DILT240C44 PO (10:06)
[2017-08-02] MEDS ORDERED: HYDR-3516 PO (10:06)
[2017-08-02 14:41] LABS: RPR SCREEN FOR REFLEX NON-REACTIVE (NON-REACTVE)
[2017-08-02 17:09] LABS: ANA SCREEN NEG (NEG)
[2017-08-02] MEDS ORDERED: LISINOPRIL 20 MG TAB PO SCH (21:00)
== END 2017-08-02 13:42 | DRG 552 ==
LOC: NEPC 09:07 → EDBD 15:56 → NEDA 15:56 → HCIS 18:50 → N03A 07-30 14:46 → N05A 08-01 10:32
PROVIDERS: ADMIT Hospitalist; ATTEND Hospitalist
DX: M48.061 Spinal stenosis, lumbar region without neurogenic claudication (principal); I48.91 Unspecified atrial fibrillation; G45.9 Transient cerebral ischemic attack, unspecified; D64.9 Anemia, unspecified; I10 Essential (primary) hypertension; E03.9 Hypothyroidism, unspecified; E78.5 Hyperlipidemia, unspecified; M25.551 Pain in right hip; M25.552 Pain in left hip; M35.3 Polymyalgia rheumatica; I65.03 Occlusion and stenosis of bilateral vertebral arteries
CPT/HCPCS: 70450; 70496; 70498; 70551; 71045; 72141; 72146; 72148; 73560; 76937; 80048; 80053; 80061; 82140; 82550; 82607; 82728; 82747; 82948; 83036; 83540; 83550; 83605; 83615; 84443; 84484; 85025; 85027; 85044; 85384; 85610; 85652; 85730; 86038; 86140; 86592; 86850; 86900; 86901; 93005; 93306; 95819; 96361; 96365; 96375; J0282; J1644; J1815; J2270; J2930; J7030; J7050; J7512; Q9967

== ENCOUNTER 2017-09-19 06:48 | Emergency (ER) | payer MEDICARE ==
[~2017-09-19] VITALS: Ht 160 cm; Wt 80.5 kg
[~2017-09-19 06:48] MED LIST changes: +AMIO200T PO; -CLON.1 PO; -CLON.1T TOP; +COUM2TAB PO; +DILT240C44 PO; +ENAL20TA PO; -ENAL20TA81 PO; -FENO50TA PO; +FISHCAP4 PO; +GEMF600T PO; +HYDR-3516 PO; +LEVE250 PO; -LEVO.05 PO; +LEVO75TA3 PO; -OMEP20CA5 PO; +PRAV40TA2 PO; +PRED20 PO; -SIMV20 PO; -TAB-TAB PO
[2017-09-19 07:18] VITALS: BP 179/88; PULSE 97; RESP 16; TEMP 97.6; O2SAT 100
[2017-09-19] MEDS ORDERED: WARF-58 PO (07:48)
[2017-09-19] MEDS ORDERED: FERR325T18 PO (07:48)
[2017-09-19] MEDS ORDERED: WARF-18 PO (07:48)
[2017-09-19] MEDS ORDERED: CLON0.1T PO (07:48)
--- NOTE | 2017-09-19 08:11 | PD ---
HPI Chief Complaint: Pain: Acute or Chronic Time Seen by Provider: 07:54 Travel History International Travel<30 days: No Contact w/Intl Traveler<30days: No Traveled to known affect area: No History of Present Illness HPI Patient is an 82-year-old female presents emergency department for 3 day history of right hand swelling and pain which started this morning. Patient has been on Coumadin because she had a stroke in the past, she was found by her primary care physicians to be slightly anemic so was started on iron tablets within the past week. Family read that the iron tablets could cause hand swelling and they think this may be the culprit but I want to make sure she does not have a blood clot in her arm because and no blood clots can lead to strokes. No fevers no nausea vomiting no trauma history. Pain for the past 3 days, gradually worsening, right hand, context as above. PFSH Past Medical History Cardiovascular Problems: Yes (THIS VISIT 07/30/17 AFIB RVR) High Cholesterol: Yes Congestive Heart Failure: Yes Cerebrovascular Accident: Yes ("mild stroke") Hypertension: Yes Thyroid Disease: Yes (HYPOTHYROID) Menopausal: Yes Social History Alcohol Use: No Tobacco Use: No Substance Use: No Allergies-Medications (Allergen,Severity, Reaction): Coded Allergies: No Known Allergies (Verified Allergy, Unknown, 07/29/17) Reported Meds & Prescriptions Reported Meds & Active Scripts Active Ultram (Tramadol HCl) 50 Mg Tab 50 Mg PO Q6H PRN Prednisone 20 Mg Tab 60 Mg PO DAILY 5 Days Keppra (Levetiracetam) 250 Mg Tab 250 Mg PO Q12HR Hydrocodone-Acetamin 5-325 mg (Hydrocodone/Acetaminophen) 5 Mg-325 Mg Tablet 1 Tab PO Q6H PRN Diltiazem CD 24 HR 240 Mg Caper 240 Mg PO DAILY Reported Warfarin 3 Mg Tab 3 Mg PO 4 DAYS WEEKLY Warfarin 2.5 Mg Tab 2.5 Mg PO 3 DAYS WEEKLY Ferrous Sulfate 325 Mg (65 Mg Iron) Tablet 325 Mg PO DAILY Clonidine (Clonidine HCl) 0.1 Mg Tab 0.1 Mg PO Q6HR Enalapril (Enalapril Maleate) 20 Mg Tab 20 Mg PO DAILY Pravastatin 40 Mg Tab 40 Mg PO DAILY Fish Oil + D3 (Fish Oil-Cholecalciferol) 1,200-1,000 Mg-Unit Cap 1 Cap PO DAILY Levothyroxine (Levothyroxine Sodium) 75 Mcg Tab 75 Mcg PO DAILY Review of Systems Except as stated in HPI: all other systems reviewed are Neg Physical Exam Narrative GENERAL: Well-developed well-nourished elderly female in no obvious distress peer SKIN: Focused skin assessment warm/dry. HEAD: Atraumatic. Normocephalic. EYES: Pupils equal and round. No scleral icterus. No injection or drainage. ENT: No nasal bleeding or discharge. Mucous membranes pink and moist. NECK: Trachea midline. No JVD. CARDIOVASCULAR: Regular rate and rhythm. No murmur appreciated. RESPIRATORY: No accessory muscle use. Clear to auscultation. Breath sounds equal bilaterally. GASTROINTESTINAL: Abdomen soft, non-tender, nondistended. Hepatic and splenic margins not palpable. MUSCULOSKELETAL: No obvious deformities. No clubbing. No cyanosis. There is swelling of her entire hand and fingers which is moderate, the compartments are overall soft, she has brisk capillary refill and sensation intact in all 5 digits distally. The hand is somewhat warm, patient states the pain is merrily in her right long finger. She does have range of motion intact, there is no pain along the flexor tendons. The edema is fairly nonspecific appears to stop rated at the wrist. She is generally tender to palpation but not really tender over any particular joint or bone. No tenderness in the forearm elbow. The remainder of the extremities are unaffected. NEUROLOGICAL: Awake and alert. No obvious cranial nerve deficits. Motor grossly within normal limits. Normal speech. PSYCHIATRIC: Appropriate mood and affect; insight and judgment normal. Data Data Last Documented VS Vital Signs Date Time Temp Pulse Resp B/P (MAP) Pulse Ox O2 Delivery O2 Flow Rate FiO2 09/19/17 13:08 09/19/17 09:27 101 20 96 Room Air 09/19/17 07:18 97.6 Orders Orders Complete Blood Count With Diff (09/19/17 08:05) Basic Metabolic Panel (Bmp) (09/19/17 08:05) Westergren Sedimentation Rate (09/19/17 08:05) C-Reactive Protein (Crp) (09/19/17 08:05) Ecg Monitoring (09/19/17 08:05) Iv Access Insert/Monitor (09/19/17 08:05) Oximetry (09/19/17 08:05) Sodium Chloride 0.9% Flush (Ns Flush) (09/19/17 08:15) Morphine Inj (Morphine Inj) (09/19/17 08:15) Hand, Complete ([id number]) (09/19/17 ) Us Arm Venous Doppler (09/19/17 08:05) Prothrombin Time / Inr (Pt) (09/19/17 08:05) Act Partial Throm Time (Ptt) (09/19/17 08:05) Uric Acid (09/19/17 08:22) Mri Hand W&W/O Contrast (09/19/17 ) Gadodiamide Pf Inj (Omniscan Pf Inj) (09/19/17 11:54) Ed Discharge Order (09/19/17 13:04) Labs Laboratory Tests Test 09/19/17 08:26 White Blood Count 8.3 TH/MM3 Red Blood Count 3.25 MIL/MM3 Hemoglobin 9.5 GM/DL Hematocrit 28.8 % Mean Corpuscular Volume 88.5 FL Mean Corpuscular Hemoglobin 29.1 PG Mean Corpuscular Hemoglobin Concent 32.9 % Red Cell Distribution Width 15.0 % Platelet Count 229 TH/MM3 Mean Platelet Volume 8.8 FL Neutrophils (%) (Auto) 79.9 % Lymphocytes (%) (Auto) 8.4 % Monocytes (%) (Auto) 10.4 % Eosinophils (%) (Auto) 0.8 % Basophils (%) (Auto) 0.5 % Neutrophils # (Auto) 6.6 TH/MM3 Lymphocytes # (Auto) 0.7 TH/MM3 Monocytes # (Auto) 0.9 TH/MM3 Eosinophils # (Auto) 0.1 TH/MM3 Basophils # (Auto) 0.0 TH/MM3 CBC Comment DIFF FINAL Differential Comment Erythrocyte Sedimentation Rate GREATER THAN 140 mm/hr Prothrombin Time 32.3 SEC Prothromb Time International Ratio 3.2 RATIO Activated Partial Thromboplast Time 60.6 SEC Blood Urea Nitrogen 10 MG/DL Creatinine 0.85 MG/DL Random Glucose 102 MG/DL Calcium Level 9.4 MG/DL Sodium Level 136 MEQ/L Potassium Level 4.1 MEQ/L Chloride Level 100 MEQ/L Carbon Dioxide Level 27.2 MEQ/L Anion Gap 9 MEQ/L Estimat Glomerular Filtration Rate 77 ML/MIN Uric Acid 5.2 MG/DL C-Reactive Protein 15.00 MG/DL MDM Medical Decision Making Medical Screen Exam Complete: Yes Emergency Medical Condition: Yes Differential Diagnosis Medication reaction, gout, reactive arthritis, DVT possible but seems unlikely, traumatic injury possible but seems unlikely. Narrative Course Patient roomed in ER. Warm and swollen, possibly infectious component. Patient ultimately underwent MRI to rule out infectious etiology including osteomyelitis and this was reassuring. Another family member was able to speak to me by phone and actually states that the patient has a history of rheumatologic arthritis. I think this would certainly explain the patient's symptoms and I think a course of steroids and pain medicine are warranted, lots of ice. There is no joint that has a particular effusion for me to tap at this time. At this time the patient is reassured discussed need follow-up with a primary care physician and return to ED criteria. She is stable for discharge Diagnosis Primary Impression: Reactive arthritis of hand Med/Other Pt SpecificInfo: Prescription(s) given Scripts Tramadol (Ultram) 50 Mg Tab 50 MG PO Q6H Y for PAIN, #10 TAB 0 Refills Prov: Sam Monson MD 09/19/17 Prednisone (Prednisone) 20 Mg Tab 60 MG PO DAILY for 5 Days, #15 TAB 0 Refills Prov: Sam Monson MD 09/19/17 Disposition: 01 DISCHARGE HOME Condition: Stable Sam Monson MD Sep 19, 2017 08:11
[2017-09-19] MEDS ORDERED: MORPHINE SULFATE 2 MG/ML INJ IV PUSH ONE (08:15)
[2017-09-19] MEDS ORDERED: SODIUM CHLORIDE 0.9% FLUSH 10 ML FLUSH IVF PRN (08:15)
--- NOTE | 2017-09-19 08:33 | RADRPT ---
EXAM DATE/TIME: 09/19/2017 08:10 [facility] COMPARISON: No previous studies available for comparison. INDICATIONS : Pain in right posterior hand; 2-5 head of metacarpals. No known injury. MEDICAL HISTORY : None. SURGICAL HISTORY : None. ENCOUNTER: Initial ACUITY: 3 days PAIN SCORE: 8/10 LOCATION: Right Hand. FINDINGS: Soft tissue swelling is noted along the dorsum of the right hand in the region of the metacarpophalan geal joints. Chondrocalcinosis is noted involving the radiocarpal and ulnar carpal joints as well as the first, second, third, and fifth metacarpophalangeal joints. No acute fracture or dislocation is n oted. CONCLUSION: 1. Soft tissue swelling along the dorsum of the right hand in the region of the metacarpal joints. 2. Chondrocalcinosis involving the radiocarpal and ulnar carpal joints as well as the first, second, third, and fifth metacarpophalangeal joints. 3. No acute fracture or dislocation. Sam Mari MD on September 19, 2017 at 8:27 Board Certified Radiologist. This report was verified electronically.
[2017-09-19 09:07] LABS: INTERNATIONAL NORMALIZED RATIO 3.2 RATIO; PROTHROMBIN TIME - PATIENT 32.3 SEC (9.8-11.6)
[2017-09-19 09:09] LABS: AUTOMATED NEUTROPHIL # 6.6 TH/MM3 (1.8-7.7); BASOPHIL % 0.5 % (0.0-2.0); EOSINOPHIL # 0.1 TH/MM3 (0-0.4); EOSINOPHIL % 0.8 % (0.0-4.0); HEMATOCRIT 28.8 % (35.0-46.0); HEMOGLOBIN 9.5 GM/DL (11.6-15.3); LYMPH % 8.4 % (9.0-44.0); LYMPHOCYTE # 0.7 TH/MM3 (1.0-4.8); MEAN CELL VOLUME 88.5 FL (80.0-100.0); MEAN CORPUSCULAR HEMOGLOBIN 29.1 PG (27.0-34.0); MEAN CORPUSCULAR HGB CONC 32.9 % (32.0-36.0); MEAN PLATELET VOLUME 8.8 FL (7.0-11.0); MONO % 10.4 % (0.0-8.0); MONOCYTE # 0.9 TH/MM3 (0-0.9); NEUT % 79.9 % (16.0-70.0); PLATELET COUNT 229 TH/MM3 (150-450); RED BLOOD COUNT 3.25 MIL/MM3 (4.00-5.30); WHITE BLOOD COUNT 8.3 TH/MM3 (4.0-11.0)
--- NOTE | 2017-09-19 09:11 | RADRPT ---
EXAM DATE/TIME: 09/19/2017 08:46 [facility] COMPARISON: No previous studies available for comparison. INDICATIONS : Right hand swelling. MEDICAL HISTORY : Hypothyroidism. Hypercholesterolemia. Hypertension. Cerebrovascular accident. Afib. Congestive heart failure. SURGICAL HISTORY : None. ENCOUNTER: Initial ACUITY: 4 - 6 days PAIN SCORE: 5/10 LOCATION: Right arm. FINDINGS: There is spontaneous flow documented in the brachial, basilic, cephalic, axillary, and subclavian vei ns. The vessels are compressible and augmentation response is documented. No filling defects are se en. The flow is phasic with respiration. Direction of flow in the jugular vein is caudal. No fluid collections within the swollen hand. CONCLUSION: 1. No evidence of deep venous thrombosis within the right upper extremity. 2. No focal fluid collections are identified within the swollen hand. Sam Mari MD on September 19, 2017 at 9:07 Board Certified Radiologist. This report was verified electronically.
[2017-09-19 09:20] LABS: BICARBONATE 27.2 MEQ/L (21.0-32.0); CALCIUM 9.4 MG/DL (8.5-10.1); CREATININE 0.85 MG/DL (0.50-1.00)
[2017-09-19 09:27] VITALS: BP 141/97; PULSE 101; RESP 20; O2SAT 96
[2017-09-19] MEDS ORDERED: GADODIAMIDE PF 287 MG/ML 20 ML VIAL (for RAD MRI) IVCONTRAST ONE (11:54)
--- NOTE | 2017-09-19 12:59 | RADRPT ---
EXAM DATE/TIME: 09/19/2017 11:25 [facility] COMPARISON: HAND RIGHT COMPLETE ([id number]), September 19, 2017, 8:10. INDICATIONS : Edema. CONTRAST: 16 cc Omniscan (gadodiamide) IV MEDICAL HISTORY : Hypertension. SURGICAL HISTORY : None. ENCOUNTER: Initial ACUITY: 4-6 days PAIN SCORE: 4/10 LOCATION: Right hand. TECHNIQUE: Multiplanar, multisequence MRI examination was performed without contrast and after the intravenous a dministration of gadolinium. There is inhomogeneous fat suppression seen on the fat-suppressed images . FINDINGS: BONE/CARTILAGE: There is mild cystic change seen in the carpal bones at the triquetrum, capitate, scaphoid, and lunat e. Some mild cystic change at the second and third metacarpal heads. No suspicious areas of edema are seen to suggest osteomyelitis. TENDONS: All of the visualized tendons are intact. MISCELLANEOUS: No evidence of joint effusion. There is soft tissue swelling throughout the hand being most prominent at the dorsum of the hand. POST-CONTRAST: There are no abnormal areas of enhancement on the post-contrast images. CONCLUSION: 1. Diffuse soft tissue swelling. 2. Scattered cystic change as described above. This is likely related to underlying arthritic change. No suspicious areas of osteomyelitis are seen. Otis Zaragoza MD on September 19, 2017 at 12:45 Board Certified Radiologist. This report was verified electronically.
[2017-09-19] MEDS ORDERED: PRED20 PO (13:03)
[2017-09-19] MEDS ORDERED: TRAM50 PO (13:04)
== END 2017-09-19 13:25 | disposition home or self-care (01) ==
LOC: NEPC 06:48
DX: M02.341 Reiter's disease, right hand (principal); E03.9 Hypothyroidism, unspecified; E78.00 Pure hypercholesterolemia, unspecified; I11.0 Hypertensive heart disease with heart failure; I50.9 Heart failure, unspecified; D64.9 Anemia, unspecified; I48.91 Unspecified atrial fibrillation; Z86.73 Personal history of transient ischemic attack (TIA), and cerebral infarction without residual deficits
CPT/HCPCS: 73130; 73220; 80048; 84550; 85025; 85610; 85652; 85730; 86140; 93971; 96374; 99285; A9579; J2270